=== PATIENT | female | born 1935 | race Caucasian/White ===

== ENCOUNTER → 2018-02-12 | Outpatient (CLI) | payer MEDICARE, OTHER ==
[2018-02-12 18:19] LABS: ALT 21 U/L (9-52); AST 22 U/L (14-36); Albumin 4.1 g/dL (3.5-5.0); Alkaline Phosphatase 73 U/L (38-126); Anion Gap 15 mmol/L; Blood Urea Nitrogen 10 mg/dL (7-17); Calcium 9.3 mg/dL (8.4-10.2); Carbon Dioxide 23 mmol/L (22-30); Chloride 105 mmol/L (98-107); Cholesterol 205 mg/dL (<200); Creatine Kinase 80 U/L (30-135); Glucose 100 mg/dL (74-99); HDL Cholesterol 63 mg/dL (40-60); LDL Cholesterol,Calculated 128 mg/dL (0-99); Potassium 4.3 mmol/L (3.5-5.1); Sodium 143 mmol/L (137-145); Total Bilirubin 0.4 mg/dL (0.2-1.3); Total Protein 7.3 g/dL (6.3-8.2); Triglycerides 70 mg/dL (<150)
== END | disposition home or self-care (01) ==
LOC: LABWHC1 17:06
PROVIDERS: ATTEND Internal Medicine
DX: E78.00 Pure hypercholesterolemia, unspecified (principal)
CPT/HCPCS: 36415; 80053; 80061; 82550

== ENCOUNTER 2019-04-09 13:26 | Inpatient (IN) | payer MEDICARE, OTHER ==
--- NOTE | 2019-04-09 13:56 | ED ---
General Adult HPI - General Chief complaint: Fall Stated complaint: hip injury Time Seen by Provider: 04/09/19 13:30 Source: patient, EMS, RN notes reviewed Mode of arrival: EMS Limitations: physical limitation - History of Present Illness Initial comments: 83-year-old female with a past medical history of hypertension, osteoarthritis, hiatal hernia presents to the emergency department for a chief complaint of left hip pain. Patient states that she was trying to get down from the closet when she dropped it on her left hip. States that at that point she went down to her knees because of the pain but did not fall. Did not hit her head or neck. No other injuries. Denies back pain.Patient has no other complaints at this time including shortness of breath, chest pain, abdominal pain, nausea or vomiting, headache, or visual changes. - Related Data Home Medications Medication Instructions Recorded Confirmed Ammonium Lactate Cream [Lac-Hydrin 1 applic TOPICAL BID 11/10/18 11/17/18 12% Cream] Aspirin EC [Ecotrin Low Dose] 81 mg PO DAILY 11/10/18 11/17/18 Atenolol [Tenormin] 50 mg PO BID 11/10/18 11/17/18 Cholecalciferol [Vitamin D3] 1,000 unit PO BID 11/10/18 11/17/18 Diclofenac Sodium [Voltaren-Xr] 100 mg PO DAILY 11/10/18 11/17/18 Donepezil [Aricept] 10 mg PO HS 11/10/18 11/17/18 Fluticasone Nasal [place] [Flonase 1 spray EA NOSTRIL DAILY 11/10/18 11/17/18 Nasal [place]] Gabapentin [Neurontin] 300 mg PO BID 11/10/18 11/17/18 Ibuprofen [Motrin] 400 mg PO Q6HR PRN 11/10/18 11/17/18 Latanoprost/Pf [Latanoprost 0.005% 1 drop BOTH EYES HS 11/10/18 11/17/18 Eye Drop] Lisinopril [Prinivil] 10 mg PO DAILY 11/10/18 11/17/18 Metoprolol Succinate (ER) [Toprol 50 mg PO DAILY 11/10/18 11/17/18 Xl] Multivitamin [Multivitamins Adult 1 applicate PO DAILY 11/10/18 11/17/18 Gummies] Nitroglycerin Sl Tabs [Nitrostat] 0.4 mg SUBLINGUAL Q5M PRN 11/10/18 11/17/18 Omeprazole [PriLOSEC] 20 mg PO AC-BID 11/10/18 11/17/18 Potassium Chloride ER [K-Dur 20] 1 applicate PO DAILY 11/10/18 11/17/18 Rosuvastatin Calcium [Crestor] 10 mg PO DAILY 11/10/18 11/17/18 Timolol Maleate [Timolol Maleate 1 applic BOTH EYES BID 11/10/18 11/17/18 0.5% Ophth Gel] Valsartan/Hydrochlorothiazide 100 mg PO DAILY 11/10/18 11/17/18 [Diovan Hct 160-25 mg Tablet] Allergies Allergy/AdvReac Type Severity Reaction Status Date / Time No Known Allergies Allergy Verified 04/09/19 13:36 Review of Systems ROS Statement: Those systems with pertinent positive or pertinent negative responses have been documented in the HPI. ROS Other: All systems not noted in ROS Statement are negative. Past Medical History Past Medical History: Eye Disorder, GERD/Reflux, Hypertension, Osteoarthritis (OA) Additional Past Medical History / Comment(s): cellulitis and glaucoma. Hiatal hernia History of Any Multi-Drug Resistant Organisms: None Reported Past Surgical History: Appendectomy, Tonsillectomy Past Anesthesia/Blood Transfusion Reactions: No Reported Reaction Past Psychological History: No Psychological Hx Reported Smoking Status: Never smoker Past Alcohol Use History: None Reported Past Drug Use History: None Reported - Past Family History Father Family Medical History: Unable to Obtain Mother Family Medical History: Unable to Obtain General Exam Limitations: physical limitation General appearance: alert, in no apparent distress Head exam: Present: atraumatic, normocephalic, normal inspection Eye exam: Present: normal appearance, PERRL, EOMI. Absent: scleral icterus, conjunctival injection, periorbital swelling ENT exam: Present: normal exam, mucous membranes moist Neck exam: Present: normal inspection, full ROM. Absent: tenderness, meningismus, lymphadenopathy, thyromegaly Respiratory exam: Present: normal lung sounds bilaterally. Absent: respiratory distress, wheezes, rales, rhonchi, stridor Cardiovascular Exam: Present: regular rate, normal rhythm, normal heart sounds. Absent: systolic murmur, diastolic murmur, rubs, gallop, clicks Extremities exam: Present: tenderness (Minimal tenderness noted to the proximal left femur), normal capillary refill (Neptali refill less than 2 seconds, DP pulse 2+ in the left lower extremity), other (There is some mild shortening of the left leg noted). Absent: full ROM, pedal edema, joint swelling, calf tenderness Course Vital Signs 04/09/19 04/09/19 04/09/19 13:36 13:59 14:33 Temperature 98 F Pulse Rate 90 Respiratory 18 Rate Blood Pressure 226/105 214/89 214/100 O2 Sat by Pulse 98 Oximetry 04/09/19 15:45 Temperature Pulse Rate 92 Respiratory 18 Rate Blood Pressure 186/76 O2 Sat by Pulse 95 Oximetry - Reevaluation(s) Reevaluation #1: 04/09/19 13:54 Patient was given IV fentanyl on the way to the emergency department, feeling much better. This was given within 1 hr Medical Decision Making - Medical Decision Making 83-year-old female with a past medical history of GERD, glaucoma, hypertension presents to the emergency department for a chief complaint of left hip pain after dropping a tote on her left leg. States it is painful to move. On exam patient does have some shortening of the left leg. Distal pulses 2+ in the left lower extremity. Capillary refill less than 2 seconds. X-ray does show a displaced left femoral neck fracture. Preop lab work was initiated him a currently pending. Chest x-ray did show a large hiatal hernia which is present from exam from 2016, appears stable. Discussed case with ROB Elliott who recommends admission to Dr. Merlos, nothing by mouth after midnight. Medicine will be consulted. - Lab Data Result diagrams: 04/09/19 14:44 04/09/19 14:44 Lab Results 04/09/19 04/09/19 04/09/19 Range/Units 14:44 14:44 14:44 WBC 16.4 H (3.8-10.6) k/uL RBC 5.12 (3.80-5.40) m/uL Hgb 14.0 (11.4-16.0) gm/dL Hct 43.2 (34.0-46.0) % MCV 84.5 (80.0-100.0) fL MCH 27.4 (25.0-35.0) pg MCHC 32.4 (31.0-37.0) g/dL RDW 14.2 (11.5-15.5) % Plt Count 307 (150-450) k/uL Neutrophils % 93 % Lymphocytes % 4 % Monocytes % 2 % Eosinophils % 0 % Basophils % 0 % Neutrophils # 15.3 H (1.3-7.7) k/uL Lymphocytes # 0.7 L (1.0-4.8) k/uL Monocytes # 0.4 (0-1.0) k/uL Eosinophils # 0.0 (0-0.7) k/uL Basophils # 0.0 (0-0.2) k/uL PT 10.2 (9.0-12.0) sec INR 0.9 (<1.2) APTT 22.3 (22.0-30.0) sec Sodium 140 (137-145) mmol/L Potassium 4.2 (3.5-5.1) mmol/L Chloride 107 (98-107) mmol/L Carbon Dioxide 24 (22-30) mmol/L Anion Gap 9 mmol/L BUN 15 (7-17) mg/dL Creatinine 0.68 (0.52-1.04) mg/dL Est GFR (CKD-EPI)AfAm >90 (>60 ml/min/1.73 sqM) Est GFR (CKD-EPI)NonAf 82 (>60 ml/min/1.73 sqM) Glucose 118 H (74-99) mg/dL Calcium 9.1 (8.4-10.2) mg/dL Total Bilirubin 0.5 (0.2-1.3) mg/dL AST 21 (14-36) U/L ALT 18 (9-52) U/L Alkaline Phosphatase 81 (38-126) U/L Total Protein 7.3 (6.3-8.2) g/dL Albumin 4.1 (3.5-5.0) g/dL Disposition Clinical Impression: Femoral neck fracture Disposition: ADMITTED IP TO THIS [facility] Condition: Good Is patient prescribed a controlled substance at d/c from ED?: No Referrals: Teto Solis MD [Primary Care Provider] - 1-2 days Time of Disposition: 16:22
--- NOTE | 2019-04-09 14:33 | XR ---
EXAMINATION TYPE: XR Hip LT and AP Pelvis DATE OF EXAM: 04/09/2019 COMPARISON: NONE HISTORY: Pain TECHNIQUE: A single AP view of the pelvis is obtained. Two views of the left hip are obtained. FINDINGS: There is displaced left femoral neck fracture. Arthropathy of the right hip. Vascular calc ifications noted. Diffuse osteopenia. Degenerative change lower lumbar spine. IMPRESSION: 1. Displaced left femoral neck fracture.
--- NOTE | 2019-04-09 14:36 | XR ---
EXAMINATION TYPE: XR chest 1V DATE OF EXAM: 04/09/2019 COMPARISON: 08/13/2016 HISTORY: Pain post fall. TECHNIQUE: Single frontal view of the chest is obtained. FINDINGS: Large area of significant consolidation overlying the left lung likely related to large he rnia and stable relative to 2016. Arthropathy of the shoulders with probable calcific tendinosis on t he left. No obvious pneumothorax. Atherosclerotic change aorta. There is reflection on the left lung apex. IMPRESSION: 1. Recommend repeat PA view for probable artifact at the left lung apex. Pneumothorax not excluded bu t unlikely and repeat PA view recommended for confirmation. 2. Stable appearance to the left chest mid and lower lung zones which appears to be related to a larg e hernia.
[2019-04-09] MEDS ORDERED: MORPHINE SULFATE 4 MG/ML SYRINGE IVP STA (14:49)
--- NOTE | 2019-04-09 14:58 | XR ---
EXAMINATION TYPE: XR femur LT DATE OF EXAM: 04/09/2019 CLINICAL HISTORY: Pain TECHNIQUE: Two views of the left femur are obtained. COMPARISON: None FINDINGS: There is a displaced left femoral neck fracture. Diffuse osteopenia noted. There is calcifi cation in the soft tissues adjacent to the left femur. IMPRESSION: 1. Displaced left femoral neck fracture.
[2019-04-09 15:03] LABS: Basophils % (A) 0 %; Eosinophils % (A) 0 %; HCT 43.2 % (34.0-46.0); Lymphocytes # (A) 0.7 k/uL (1.0-4.8); Lymphocytes % (A) 4 %; MCH 27.4 pg (25.0-35.0); MCHC 32.4 g/dL (31.0-37.0); MCV 84.5 fL (80.0-100.0); Mean Platelet Volume 7.1; Monocytes # (A) 0.4 k/uL (0-1.0); Monocytes % (A) 2 %; Neutrophils # (A) 15.3 k/uL (1.3-7.7); Neutrophils % (A) 93 %; Platelet Count 307 k/uL (150-450); RBC 5.12 m/uL (3.80-5.40); RDW 14.2 % (11.5-15.5); WBC 16.4 k/uL (3.8-10.6)
[2019-04-09 15:09] LABS: INR 0.9 (<1.2); Partial Thromboplastin Time 22.3 sec (22.0-30.0); Prothrombin Time 10.2 sec (9.0-12.0)
[2019-04-09 15:11] LABS: ALT 18 U/L (9-52); AST 21 U/L (14-36); African American GFR (CKD) >90 (>60 ml/min/1.73 sqM); Albumin 4.1 g/dL (3.5-5.0); Alkaline Phosphatase 81 U/L (38-126); Anion Gap 9 mmol/L; Blood Urea Nitrogen 15 mg/dL (7-17); Calcium 9.1 mg/dL (8.4-10.2); Carbon Dioxide 24 mmol/L (22-30); Chloride 107 mmol/L (98-107); Glucose 118 mg/dL (74-99); Potassium 4.2 mmol/L (3.5-5.1); Sodium 140 mmol/L (137-145); Total Bilirubin 0.5 mg/dL (0.2-1.3); Total Protein 7.3 g/dL (6.3-8.2)
--- NOTE | 2019-04-09 15:58 | XR ---
EXAMINATION TYPE: XR chest 1V DATE OF EXAM: 04/09/2019 COMPARISON: 04/09/2019 HISTORY: Pain TECHNIQUE: Single frontal view of the chest is obtained. FINDINGS: No sizable pneumothorax. Persistent consolidation in the left likely related to large anh ia. This could be confirmed with CT scan as clinically warranted. Right lung is clear. Atheroscleroti c change aorta. Heart size is stable. IMPRESSION: No pneumothorax. Large area consolidation appears to be present on the prior exam and mo st typical of a large hernia. Adjacent compressive atelectasis suspected.
[2019-04-09] MEDS ORDERED: NALOXONE 0.4 MG/ML 1 ML VIAL IV PRN (16:23)
[2019-04-09] MEDS ORDERED: SODIUM CHLORIDE 0.9% 1,000 ML IV SCH (16:30)
[2019-04-09] MEDS: MORPHINE SULFATE 4 MG/ML SYRINGE IV PRN ×2 (17:57→22:52)
[2019-04-09] MEDS: ENOXAPARIN 40 MG/0.4 ML SYRINGE SQ SCH (22:42)
[2019-04-09] MEDS: TIMOLOL 0.5% OPHTH DROPS 5 ML BTL BOTH EYES SCH (22:45)
[2019-04-09] MEDS: VALSARTAN 160 MG TAB PO SCH (22:45)
[2019-04-09] MEDS: DONEPEZIL 10 MG TAB PO SCH (22:45)
[2019-04-09] MEDS: METOPROLOL TARTRATE 50 MG TAB PO SCH (22:45)
[2019-04-09] MEDS: LACTATED RINGERS 1,000 ML IV SCH (22:56)
[2019-04-10] MEDS: MORPHINE SULFATE 4 MG/ML SYRINGE IV PRN ×3 (05:42→19:49)
[2019-04-10] MEDS: PANTOPRAZOLE 40 MG TABLET PO SCH (07:31)
[2019-04-10] MEDS: ENOXAPARIN 40 MG/0.4 ML SYRINGE SQ SCH (07:32)
[2019-04-10] MEDS: ETODOLAC 300 MG CAPSULE PO SCH ×3 (07:44→21:42)
--- NOTE | 2019-04-10 07:48 | CONS ---
CONSULTATION DATE OF CONSULTATION: 04/09/2019 REASON FOR CONSULTATION: Medical management requested by Dr. Merlos. CONSULTATION: This is a very pleasant 83-year-old patient who follows with Dr. Teto Solis who lives with a friend calvin Martino/is also her guardian. A crate fell on the patient's leg and patient fell down. The patient is not able to lift herself up. There was severe pain in the left hip. Patient did get an x-ray in the ER that shows a displaced left femoral neck fracture, is rather painful. The patient normally uses a cane to get about the house. At her baseline, there no chest pain or shortness of breath, unable to lie flat. REVIEW OF SYSTEMS: CONSTITUTIONAL: None. HEENT: Decreased hearing. RESPIRATORY: None. CARDIOVASCULAR: None. GASTROINTESTINAL: Heartburn. GENITOURINARY: Incontinent. MUSCULOSKELETAL: Arthritic pain in many joints and the left hip. DERMATOLOGICAL: None. HEMATOLOGIC: None. LYMPHATIC: None. PSYCHIATRY: Slightly forgetful. NEUROLOGICAL: None. PAST MEDICAL HISTORY: Past medical history of GERD, hypertension, osteoarthritis, hiatal hernia. PAST SURGICAL HISTORY: Appendectomy, tonsillectomy. SOCIAL HISTORY: Lives with Salena, who is also her guardian. Does not smoke or drink alcohol. Does use a cane. FAMILY HISTORY: Reviewed, noncontributory to presentation. HOME MEDICATIONS: 1. Aricept 10 mg q.h.s. 2. Diovan hydrochlorothiazide 160/25, 100 mg p.o. daily. 3. Timolol 0.5% one drop to both eyes b.i.d. 4. Potassium 20 mEq a day. 5. Prilosec 20 mg a day. 6. Toprol XL 50 mg a day. 7. Diclofenac sodium 100 mg p.o. daily. 8. Aspirin 81 mg p.o. daily. ALLERGIES: None. PHYSICAL EXAMINATION: On examination, temperature 98.7, pulse 85, respiratory 18, blood pressure 183/62, pulse ox 94% on room air. GENERAL APPEARANCE: Average build, lying in bed, tired appearing. EYES: Pupils equal. Conjunctivae normal. HENT: External appearance of nose and ears normal. Oral cavity normal. NECK: JVD not raised. Mass not palpable. RESPIRATORY: Effort normal. LUNGS: Diminished breath sounds. CARDIOVASCULAR: First and second sounds normal. No edema. ABDOMEN: Soft, nontender. Liver and spleen not palpable. LYMPHATIC: No lymph nodes palpable in the neck and axillae. PSYCHIATRY: Able to answer simple questions. NEUROLOGICAL: Pupils equal. No facial asymmetry. Power and sensation grossly intact. MUSCULOSKELETAL: Evidence of severe osteoarthritis especially in the hands, knees. Limited range of motion of the left hip. INVESTIGATIONS: White count 16.4, hemoglobin 14. Potassium 4.2. BUN and creatinine normal. EKG tracing personally reviewed by me shows left bundle branch block. Chest x-ray film personally reviewed by me shows left-sided questionable mass reading the report this may be typical for large hernia as reported by the radiologist . ASSESSMENT: 1. Left femur fracture secondary to dropping an object on her leg. 2. Primary osteoarthritis multiple joints. 3. Chronic gait dysfunction at the baseline, patient uses a cane. 4. Gastroesophageal reflux disease. 5. Essential hypertension. 6. Chronic hiatal hernia. 7. Chronic urinary incontinence. PLAN: From a cardiovascular risk assessment standpoint, the patient is an elderly lady with limited exercise tolerance, but has no active cardiopulmonary symptoms putting her at a moderate risk for surgery. Patient's chest x-ray left lung field appears to show what may be evidence of hiatal hernia. The patient has no active pulmonary symptoms. The patient should be able to proceed for surgery. The patient's aspirin will be held. Lovenox for DVT prophylaxis. Care was discussed with the patient. Questions were answered. Thank you Dr. Merlos. MMRAAD / YENN: [id number] /
--- NOTE | 2019-04-10 08:34 | P.HPOR ---
History of Present Illness H&P Date: 04/10/19 Chief Complaint: Left femoral neck fracture Patient is an 83-year-old female presented to [facility] yesterday after sustaining an injury to her left leg. Patient was apparently trying to get something out of her closet, fell on her and she fell on the left side. She was unable to weight-bear and had immediate pain in the left leg. Upon arrival to the hospital, imaging and lab tests were done. Images demonstrated a left femoral neck fracture. I was contacted by the emergency room staff, the case was discussed. I was able to review the images of my attending Dr. Merlos. Patient was admitted under our care with plan for surgical intervention, internal medicine was placed on consult. Patient was evaluated today at bedside, she is resting comfortably. She notes no discomfort unless she moves in the left leg. She has no other orthopedic c omplaints at this time. She denies any previous surgery involving the left lower extremity. She denies any headaches, lightheadedness, chest pain or shortness of breath at this time. Review of Systems Constitutional: Reports as per HPI Past Medical History Past Medical History: Eye Disorder, GERD/Reflux, Hypertension, Osteoarthritis (OA) Additional Past Medical History / Comment(s): cellulitis and glaucoma. Hiatal hernia History of Any Multi-Drug Resistant Organisms: None Reported Past Surgical History: Appendectomy, Tonsillectomy Past Anesthesia/Blood Transfusion Reactions: No Reported Reaction Past Psychological History: No Psychological Hx Reported Additional Psychological History / Comment(s): Lives under the care of her guardian. Retired. No experience. No animal exposures. No current tobacco use Smoking Status: Never smoker Past Alcohol Use History: None Reported Past Drug Use History: None Reported - Past Family History Father Family Medical History: Unable to Obtain Mother Family Medical History: Unable to Obtain Medications and Allergies Home Medications Medication Instructions Recorded Confirmed Type Aspirin EC [Ecotrin Low Dose] 81 mg PO DAILY 11/10/18 04/09/19 History Diclofenac Sodium [Voltaren-Xr] 100 mg PO DAILY 11/10/18 04/09/19 History Donepezil [Aricept] 10 mg PO HS 11/10/18 04/09/19 History Metoprolol Succinate (ER) [Toprol 50 mg PO DAILY 11/10/18 04/09/19 History Xl] Omeprazole [PriLOSEC] 20 mg PO DAILY 11/10/18 04/09/19 History Potassium Chloride ER [K-Dur 20] 20 meq PO DAILY 11/10/18 04/09/19 History Timolol Maleate [Timolol Maleate 1 drop BOTH EYES BID 11/10/18 04/09/19 History 0.5% Ophth Gel] Valsartan/Hydrochlorothiazide 100 mg PO DAILY 11/10/18 04/09/19 History [Diovan Hct 160-25 mg Tablet] Allergies Allergy/AdvReac Type Severity Reaction Status Date / Time No Known Allergies Allergy Verified 04/09/19 16:40 Physical Examination Left lower extremity: There is no obvious open lesions or sores present throughout the lower extremity Obvious shortening and external rotation of the hip compared to contralateral side Logroll maneuver reproduces significant discomfort in the left hip, she is unable to straight leg raise No effusion present around the knee, no tenderness with palpation Plantar flexion, dorsiflexion, EHL, FHL are intact Calf is soft, no tenderness with palpation. Dorsal pedis pulses 2+. Her sensory exam light touch throughout the extremity is intact Results - Labs Labs: Abnormal Lab Results - Last 24 Hours (Table) 04/09/19 04/09/19 Range/Units 14:44 14:44 WBC 16.4 H (3.8-10.6) k/uL Neutrophils # 15.3 H (1.3-7.7) k/uL Lymphocytes # 0.7 L (1.0-4.8) k/uL Glucose 118 H (74-99) mg/dL H & H 04/09/19 Range/Units 14:44 Hgb 14.0 (11.4-16.0) gm/dL Hct 43.2 (34.0-46.0) % Coagulation 04/09/19 Range/Units 14:44 INR 0.9 (<1.2) Result Diagrams: 04/09/19 14:44 04/09/19 14:44 - Diagnostic results Hip x-ray: report reviewed, image reviewed Assessment and Plan Plan: Imaging: Multiple x-rays of the left lower extremity were obtained. Images do demonstrate a displaced left subcapital femoral neck fracture. Assessment: 1. Displaced left subcapital femoral neck fracture 2. Fall from standing 3. Other medical comorbidities Plan: I was able to discuss the case, including with physical exam findings and imaging studies my attending Dr. Merlos. Like to proceed with surgery, more specifically a direct anterior left total hip arthroplasty. Patient was made nothing by mouth last night, plan is for surgery on 04/10/2019. I had a long discussion last night with the patient's guardian over the phone, discussing the risk and benefits. I also discussed the case with the patient today at bedside. She would like to proceed with surgery. Consent will be obtained GI and DVT prophylaxis, we'll begin subcu medication regular scheduled aspirin after surgery Pain control Medical management Further recommendations to follow Time with Patient: Less than 30
[2019-04-10] MEDS ORDERED: VALSARTAN 160 MG TAB PO SCH (09:00)
[2019-04-10] MEDS ORDERED: METOPROLOL SUCCINATE (ER) 50 MG TAB.ER.24H PO SCH (09:00)
[2019-04-10] MEDS: HYDROCHLOROTHIAZIDE 25 MG TAB PO SCH (09:17)
[2019-04-10] MEDS: VALSARTAN 160 MG TAB PO SCH (09:32)
--- NOTE | 2019-04-10 09:32 | P.CNPUL ---
History of Present Illness Consult date: 04/10/19 Requesting physician: Pravin Merlos Reason for consult: abnormal CXR/CT Chief complaint: Left hip pain following injury. History of present illness: This a very pleasant 83-year-old female patient who follows with Dr. Solis as her primary care physician. She has a history of hypertension, osteoarthritis, gastroesophageal reflux disease. She presented to the emergency room yesterday after sustaining a injury to her left hip. She was trying to reach something from up in a closet and dropped a heavy tote on her hip. She did go down to her knees but did not actually fall. No head injury. No other injuries other than the left. X-ray did reveal a displaced left femoral neck fracture. There is diffuse osteopenia as well. Chest x-ray showed a large area of significance consolidation overlying the left lung likely secondary to large hernia and stable compared to previous in 2016. Initially unable to exclude a pneumothorax in the left apex. We're consulted for the same regarding preop clearance. Follow-up chest x-ray revealed no pneumothorax. The patient has no underlying pulmonary disease. Lifelong nonsmoker. Maintaining good O2 saturations in the mid 90s on room air. She's afebrile. White count 16.4. Hemoglobin 14.0. Creatinine 0.68. The plan is for a direct anterior left total hip arthroplasty per orthopedics to be performed today. Review of Systems REVIEW OF SYSTEMS: CONSTITUTIONAL: Denies any recent significant weight loss or weight gain. EYES: Denies change in vision. EARS, NOSE, MOUTH, THROAT: Denies headaches, denies sore throat. CARDIOVASCULAR: Denies chest pain, palpitations or syncopal episodes. RESPIRATORY: Denies shortness of breath, cough, congestion or hemoptysis. GASTROINTESTINAL: Denies change in appetite, denies abdominal pain GENITOURINARY: Denies hematuria, denies infections. MUSKULOSKELETAL: Left hip pain. INTEGUMENTARY: Denies rash, denies eczema. NEUROLOGICAL: Denies recent memory loss, no recent seizure activity. PSYCHIATRIC: Denies anxiety, denies depression. HEMATOLOGIC/LYMPHATIC: Denies anemia, denies enlarged lymph nodes. Past Medical History Past Medical History: Eye Disorder, GERD/Reflux, Hypertension, Osteoarthritis (OA) Additional Past Medical History / Comment(s): cellulitis and glaucoma. Hiatal hernia History of Any Multi-Drug Resistant Organisms: None Reported Past Surgical History: Appendectomy, Tonsillectomy Past Anesthesia/Blood Transfusion Reactions: No Reported Reaction Past Psychological History: No Psychological Hx Reported Additional Psychological History / Comment(s): Lives under the care of her guardian. Retired. No experience. No animal exposures. No current tobacco use Smoking Status: Never smoker Past Alcohol Use History: None Reported Past Drug Use History: None Reported - Past Family History Father Family Medical History: Unable to Obtain Mother Family Medical History: Unable to Obtain Medications and Allergies Home Medications Medication Instructions Recorded Confirmed Type Aspirin EC [Ecotrin Low Dose] 81 mg PO DAILY 11/10/18 04/09/19 History Diclofenac Sodium [Voltaren-Xr] 100 mg PO DAILY 11/10/18 04/09/19 History Donepezil [Aricept] 10 mg PO HS 11/10/18 04/09/19 History Metoprolol Succinate (ER) [Toprol 50 mg PO DAILY 11/10/18 04/09/19 History Xl] Omeprazole [PriLOSEC] 20 mg PO DAILY 11/10/18 04/09/19 History Potassium Chloride ER [K-Dur 20] 20 meq PO DAILY 11/10/18 04/09/19 History Timolol Maleate [Timolol Maleate 1 drop BOTH EYES BID 11/10/18 04/09/19 History 0.5% Ophth Gel] Valsartan/Hydrochlorothiazide 100 mg PO DAILY 11/10/18 04/09/19 History [Diovan Hct 160-25 mg Tablet] Allergies Allergy/AdvReac Type Severity Reaction Status Date / Time No Known Allergies Allergy Verified 04/09/19 16:40 Physical Exam Vitals: Vital Signs Temp Pulse Pulse Pulse Resp BP BP 04/10/19 07:00 98.6 F 78 16 04/10/19 02:31 97.8 F 69 16 173/69 04/09/19 23:56 69 154/70 04/09/19 19:41 98.7 F 85 18 183/62 04/09/19 15:45 92 18 186/76 04/09/19 14:33 214/100 04/09/19 13:59 214/89 04/09/19 13:36 98 F 90 18 226/105 BP Pulse Ox 04/10/19 07:00 184/75 92 L 04/10/19 02:31 95 06/06/19 23:56 04/09/19 19:41 94 L 04/09/19 15:45 95 04/09/19 14:33 04/09/19 13:59 04/09/19 13:36 98 Intake and Output 04/09/19 04/10/19 04/10/19 22:59 06:59 14:59 Intake Total 700 Output Total 550 Balance -550 700 Intake: Intake, IV Titration 700 Amount Lactated Ringers 1,000 ml 400 @ 50 mls/hr IV .Q20H RED Rx#:[id number] Sodium Chloride 0.9% 1, 300 000 ml @ 75 mls/hr IV . [id number] RED Rx#:[id number] Output: Urine 550 Other: Voiding Method Indwelling Catheter Indwelling Catheter GENERAL EXAM: Alert, fairly comfortable in no apparent distress. On room air. HEAD: Normocephalic. EYES: Normal reaction of pupils, equal size. NOSE: Clear with pink turbinates. THROAT: No erythema or exudates. NECK: No masses, no JVD. CHEST: No chest wall deformity. LUNGS: Equal air entry with no crackles, wheeze, rhonchi or dullness. CVS: S1 and S2 normal with no audible murmur, regular rhythm. ABDOMEN: No hepatosplenomegaly, normal bowel sounds, no guarding or rigidity. SPINE: No scoliosis or deformity SKIN: No rashes CENTRAL NERVOUS SYSTEM: No focal deficits, tone is normal in all 4 extremities. EXTREMITIES: Discomfort in the left hip. There is no peripheral edema. No clubbing, no cyanosis. Peripheral pulses are intact. Results - Laboratory Findings CBC and BMP: 04/09/19 14:44 04/09/19 14:44 PT/INR, D-dimer PT 10.2 sec (9.0-12.0) 04/09/19 14:44 INR 0.9 (<1.2) 04/09/19 14:44 Abnormal lab findings: Abnormal Labs 04/09/19 04/09/19 14:44 14:44 WBC 16.4 H Neutrophils # 15.3 H Lymphocytes # 0.7 L Glucose 118 H - Diagnostic Findings Chest x-ray: image reviewed Assessment and Plan Assessment: Impression: #1 Left hip pain secondary to injury causing a displaced left subcapital femoral neck fracture. #2 Large hiatal hernia into the left chest area. No evidence of pneumothorax. #3 Osteoarthritis. #4 Hypertension. #5 Hyperlipidemia. #6 Gastroesophageal reflux disease Plan: The patient was seen and evaluated by Dr. Larose. Chest x-rays labs reviewed. The patient is stable from the pulmonary standpoint. No pulmonary complaints. Maintaining good O2 saturations in the 90s on room air. She is cleared for surgical repair of the left hip fracture. Plan for incentive spirometer and educate regarding cough and deep breathing exercises postoperatively. We'll continue to follow make further recommendations based on her clinical status. I, the cosigning physician, performed a history & physical examination of the patient. Lungs sounds are clear. Maintaining good O2 saturations in the 90s on room air. I discussed the assessment and plan of care with my nurse practitioner, Mary Cade. I attest to the above note as dictated by her. Time with Patient: Greater than 30
[2019-04-10] MEDS: METOPROLOL TARTRATE 50 MG TAB PO SCH ×2 (10:13→19:50)
[2019-04-10] MEDS: TIMOLOL 0.5% OPHTH DROPS 5 ML BTL BOTH EYES SCH ×2 (10:13→19:50)
[2019-04-10] MEDS ORDERED: IV FLUID CONTINUATION 250 ML IV ONE (15:07)
[2019-04-10] MEDS ORDERED: ceFAZolin IN SWFI 2 GM/20 ML SYRINGE IVP STA (15:09)
[2019-04-10] MEDS: LACTATED RINGERS 1,000 ML IV SCH ×2 (15:15→15:44)
[2019-04-10] MEDS ORDERED: LIDOCAINE 1% 20 ML VIAL (10MG/ML) FOR IV START INTRADERMA ONE (15:15)
[2019-04-10] MEDS ORDERED: hydrALAZINE HCL 20 MG/ML 1 ML VIAL IVP ONE (15:20)
[2019-04-10] MEDS ORDERED: TRANEXAMIC ACID 1,000 MG/10 ML VIAL ONE (15:39)
[2019-04-10] MEDS ORDERED: MIDAZOLAM 2 MG/2 ML VIAL ONE (15:39)
[2019-04-10] MEDS ORDERED: SODIUM CHLORIDE 0.9% 100 ML BAG ONE (15:39)
[2019-04-10] MEDS ORDERED: PROPOFOL 10 MG/ML 20 ML VIAL IV ONE (15:39)
[2019-04-10] MEDS ORDERED: ceFAZolin 3,000 MG in SODIUM CHLORIDE 0.9% IRRIGATIO 3,000 ML IRRIGATION ONE (16:27)
[2019-04-10] MEDS ORDERED: TRANEXAMIC ACID 1,000 MG in SODIUM CHLORIDE 0.9% 100 ML IVPB ONE ×4 (16:30)
[2019-04-10] MEDS ORDERED: ONDANSETRON 4 MG/2 ML VIAL IVP PRN (18:03)
[2019-04-10] MEDS ORDERED: NALOXONE 0.4 MG/ML 1 ML VIAL IV PRN (18:03)
[2019-04-10] MEDS ORDERED: HYDROmorphone 0.5 MG/0.5 ML SYRINGE IVP PRN ×3 (18:03)
--- NOTE | 2019-04-10 18:03 | P.OP ---
Date of Procedure: 04/10/19 Preoperative Diagnosis: Displaced left hip femoral neck fracture Postoperative Diagnosis: Same Procedure(s) Performed: Direct anterior left total hip arthroplasty Implants: 1. Depuy Corail KA size 11 with collar press-fit femoral stem 2. Depuy Pomaria 52 mm press-fit acetabular shell 3. Depuy Pomaria polyethylene acetabular liner +4 52 OD 36 ID 4. Biolox delta ceramic femoral head +1.5 to 6 Anesthesia: spinal Surgeon: Pravin Merlos Chief Construction Inspector #1: Zenon Maldonado Estimated Blood Loss (ml): 500 Pathology: other (Femoral head) Condition: stable Disposition: PACU Indications for Procedure: 83-year-old patient seen with a displaced left hip femoral neck fracture. I discussed direct anterior left total hip arthroplasty. Procedure, risks, combination and recovery were reviewed. Patient and family were agreeable. Consent obtained. Operative Findings: see description of procedure Description of Procedure: The patient was taken to the operative suite. Patient underwent a spinal anesthetic by the department of anesthesia. Patient was then transferred to the [place] table. Patient was given preoperative IV antibiotics and TXA. Both lower extremities were placed in standard leg spars. The hip was then prepped and draped in the normal sterile orthopedic fashion. A standard anterior incision was made beginning 3 cm lateral and 1 cm distal to the ASIS extending 10 cm. Dissection was then carried down through the subcutaneous soft tissues down to the fascia overlying the tensor fascia montez. An incision was now made through the fascia. Careful dissection was taken down exposing the tensor fascia montez muscle. A Cobra retractor was now placed along the medial femoral neck and a second one along the lateral femoral neck. The venous circumflex vessels were now identified, cauterized and clipped. We identified the anterior hip capsule. An incision was made through the hip capsule along the lateral border. I performed a partial anterior capsulectomy. I immediately encountered the hemarthrosis. This was evacuated. There was a displaced comminuted femoral neck fracture. Retractors were now placed around the femoral neck itself. I re sected the residual femoral neck utilizing a sagittal saw. The femoral head was now removed without difficulty. There was moderate osteoarthritis of the acetabulum. The extremity was now rotated to 45 of external rotation. It was locked in position. Residual labrum was now debrided out. Serial reaming was performed of the acetabulum while Tone RIVAS assisted holding an anterior retractor for exposure. Once we reached the appropriate size and a trial was position and fit nicely. The appropriate size was now chosen opened and made available. It was introduced into the acetabulum without difficulty. The C- arm/fluoroscopy was now brought into the operative field. We made sure we had a true AP pelvic view. We now under direct C-arm/fluoroscopy introduced into the acetabular component with appropriate version and inclination. I held the cup in appropriate position well Tone RIVAS used a mallet to seat the acetabular component. The acetabular component would not seat. I tried to insert a screw but it was very soft bone. I now swapped out the acetabular cup for multi hole cup. I drilled multiple holes and up using multiple screws to achieve good screw fixation of the acetabular cup. The C-arm was pulled back. An appropriate liner was introduced and clicked into position. It was felt to be stable. At this point retractors were removed. The extremity was now placed into 120 external rotation with no traction. The leg was now dropped to the ground and adducted. Appropriate retractors were now positioned along the proximal femur. We also placed our femoral look into position. Additional capsular releasing was performed to gain access to the proximal femur. We now used a box osteotome. A canal finder was now utilized. Serial broaching was now performed with the assistance of oTne RIVAS tapping the broaches down with a mallet while held the broach in appropriate rotation and position. This was done until we reached the appropriate size with good overall rotational stability. Appropriate calcar planing was performed. A trial head/neck was placed into position. The hip was now reduced. The C-arm/fluoroscopy was brought back into the operative field. A spot film was obtained of the nonoperative hip. A spot film was obtained of the trial components. Overlays were performed, we noted good overall alignment and positioning for determining leg length. The C-arm/fluoroscopy was pulled back. Retractors were repositioned and the hip was dislocated. The leg was again taken down to the ground and adducted. Appropriate retractors were repositioned as well as the femoral hook. All trial components were removed. The femoral implant was opened along with the femoral head. The femoral implant was introduced on the appropriate handle into our pre-broached area. I held the component position well Tone RIVAS used a mallet to seat the femoral component. The femoral component was now noted to be well seated and stable.. The femoral head was introduced with good positioning and fixation noted. Retractors were now removed. The hip was now reduced. There appeared be good positioning of the hip confirmed on intraoperative fluoroscopy. Spot films were obtained to document this. A second gram of TXA was given. The deep and superficial soft tissues were infiltrated with local analgesic. Bipolar cautery had been utilized intermittently through the procedure for hemostasis. The wound was irrigated copiously with pulse lavage mechanical irrigation. The fascia was repaired with Vicryl suture. The subcutaneous soft tissues were repaired in layers with Vicryl suture. The skin was approximated with pernio/Dermabond. Sterile dressings were applied. Patient was then awakened, transferred to a bed and taken to recovery in stable condition. Tone RIVAS assisted with the complex procedure.
[2019-04-10] MEDS: SENNOSIDES-DOCUSATE SODIUM 1 EACH TAB PO SCH (19:49)
[2019-04-10] MEDS: DONEPEZIL 10 MG TAB PO SCH (19:50)
[2019-04-10] MEDS: SODIUM CHLORIDE 0.9% 1,000 ML IV SCH (19:50)
[2019-04-10] MEDS: HYDROcodone/APAP 5-325MG 1 EACH TAB PO PRN (21:40)
[2019-04-10] MEDS: ceFAZolin IN SWFI 2 GM/20 ML SYRINGE IVP SCH (23:30)
[2019-04-11] MEDS: HYDROcodone/APAP 5-325MG 1 EACH TAB PO PRN (05:56)
[2019-04-11 07:32] LABS: Basophils % (A) 0 %; Eosinophils # (A) 0.1 k/uL (0-0.7); Eosinophils % (A) 1 %; HCT 36.2 % (34.0-46.0); HGB 11.7 gm/dL (11.4-16.0); Lymphocytes # (A) 0.9 k/uL (1.0-4.8); Lymphocytes % (A) 11 %; MCH 27.4 pg (25.0-35.0); MCHC 32.3 g/dL (31.0-37.0); MCV 84.8 fL (80.0-100.0); Mean Platelet Volume 7.1; Monocytes # (A) 0.3 k/uL (0-1.0); Monocytes % (A) 4 %; Neutrophils # (A) 7.1 k/uL (1.3-7.7); Neutrophils % (A) 83 %; Platelet Count 245 k/uL (150-450); RBC 4.27 m/uL (3.80-5.40); RDW 14.7 % (11.5-15.5); WBC 8.6 k/uL (3.8-10.6)
[2019-04-11] MEDS ORDERED: ENOXAPARIN 40 MG/0.4 ML SYRINGE SQ SCH (09:00)
[2019-04-11] MEDS: TIMOLOL 0.5% OPHTH DROPS 5 ML BTL BOTH EYES SCH ×2 (09:00→21:46)
[2019-04-11] MEDS: ceFAZolin IN SWFI 2 GM/20 ML SYRINGE IVP SCH (09:07)
--- NOTE | 2019-04-11 10:55 | PN ---
PROGRESS NOTE DATE OF SERVICE: 04/10/2019 PRESENT COMPLAINT: Femur fracture. INTERVAL HISTORY: Patient is seen by me yesterday on 04/10/2019, pending surgery. Patient is status post left femur fracture. Pain at the fracture site, otherwise stable. REVIEW OF SYSTEMS: Done for constitutional, cardiovascular, GI, pulmonary; relevant findings as above. CURRENT MEDICATIONS: Reviewed. PHYSICAL EXAMINATION: Temperature 98.6, pulse 72, respiration 16, blood pressure 184/75, pulse ox 92% on room air. GENERAL APPEARANCE: Lying in bed, awake. EYES: Pupils equal, conjunctivae normal. NECK: JVD not raised. Mass not palpable. RESPIRATORY: Effort normal. LUNGS: Decreased breath sounds. CARDIOVASCULAR: First and second sounds are normal, no edema. ABDOMEN: Soft, nontender. Liver and spleen not palpable. PSYCHIATRY: Awake, answering questions. INVESTIGATIONS: No blood work from today. ASSESSMENT: 1. Left femur fracture secondary to dropping objects on the leg. Awaiting surgery. 2. Primary osteoarthritis multiple joints. 3. Chronic gait dysfunction, at the baseline patient uses a cane. 4. Gastroesophageal reflux disease. 5. Essential hypertension. 6. Chronic hiatal hernia. 7. Chronic urine incontinence. PLAN: Awaiting surgery. Spoke to the nurse, told him to make sure the morning blood pressure medications were given. Other medication and treatment plan is to continue. MMODL / IJN: [id number] /
--- NOTE | 2019-04-11 11:50 | P.PN ---
Subjective Progress Note Date: 04/11/19 Principal diagnosis: Status post direct anterior left total hip arthroplasty Patient evaluated today at bedside, she is resting comfortably. She had a couple vomiting episodes this morning, this happened when she attempted to get out of bed. She remained stable while resting in bed. Her pain is controlled at this time, she states the pain is much improved. Objective - Vital Signs Vital signs: Vital Signs Temp 97.7 F 04/11/19 07:41 Pulse 59 L 04/11/19 07:41 Resp 19 04/11/19 07:41 BP 136/54 04/11/19 07:41 Pulse Ox 96 04/11/19 07:41 Intake & Output 04/10/19 04/11/19 04/11/19 18:59 06:59 18:59 Intake Total 1351 400 Output Total 1000 550 Balance 351 -150 Intake: IV 1351 Lactated Ringers 1,000 ml 400 @ 50 mls/hr IV .Q20H RED Rx#:[id number] Intake, IV Titration 400 Amount Sodium Chloride 0.9% 1, 400 000 ml @ 50 mls/hr IV . Q20H RED Rx#:[id number] Output: Urine 500 550 Estimated Blood Loss 500 Other: Voiding Method Indwelling Catheter Indwelling Catheter Indwelling Catheter - Exam Left lower extremity: Incision is clean, dry, and intact. The exofin fusion tape is in good condition. There is minimal soft tissue swelling and ecchymosis surrounding the medial and lateral aspects of the incision. Calf is soft, no tenderness with pa lpation. Plantar flexion, dorsiflexion, EHL, FHL are intact. Sensory exam to light touch throughout the extremity is intact, dorsal pedis pulses 2+. - Labs CBC & Chem 7: 04/11/19 06:46 04/09/19 14:44 Labs: Abnormal Lab Results - Last 24 Hours (Table) 04/11/19 Range/Units 06:46 Lymphocytes # 0.9 L (1.0-4.8) k/uL Assessment and Plan Plan: Assessment: Postoperative day 1 status post left total hip arthroplasty Plan: Pain control, did restart home anti-inflammatory medication. Utilize low-dose narcotics as needed, this may be contributed to the vomiting episode. GI and DVT prophylaxis, continue current medication Ice and elevate often Continue work with physical therapy Medical recommendations We'll continue to follow patient during inpatient stay Time with Patient: Less than 30
[2019-04-11] MEDS ORDERED: ONDANSETRON 4 MG/2 ML VIAL IVP PRN (13:52)
[2019-04-11] MEDS: ETODOLAC 300 MG CAPSULE PO SCH ×3 (13:53→21:46)
[2019-04-11] MEDS: HYDROCHLOROTHIAZIDE 25 MG TAB PO SCH (13:54)
[2019-04-11] MEDS: VALSARTAN 160 MG TAB PO SCH (13:54)
[2019-04-11] MEDS: PANTOPRAZOLE 40 MG TABLET PO SCH (13:54)
[2019-04-11] MEDS: METOPROLOL TARTRATE 50 MG TAB PO SCH ×2 (13:54→21:46)
[2019-04-11] MEDS: ENOXAPARIN 40 MG/0.4 ML SYRINGE SQ SCH (14:35)
[2019-04-11] MEDS: SODIUM CHLORIDE 0.9% 1,000 ML IV SCH (14:35)
[2019-04-11] MEDS: LACTATED RINGERS 1,000 ML IV SCH (14:39)
[2019-04-11] MEDS: ACETAMINOPHEN TAB 500 MG TAB PO PRN (17:36)
[2019-04-11] MEDS: DONEPEZIL 10 MG TAB PO SCH (21:46)
[2019-04-11] MEDS: SENNOSIDES-DOCUSATE SODIUM 1 EACH TAB PO SCH (21:46)
[2019-04-12] MEDS: ETODOLAC 300 MG CAPSULE PO SCH ×3 (07:33→21:00)
[2019-04-12] MEDS: TIMOLOL 0.5% OPHTH DROPS 5 ML BTL BOTH EYES SCH ×2 (07:33→21:01)
[2019-04-12] MEDS: VALSARTAN 160 MG TAB PO SCH (07:34)
[2019-04-12] MEDS: METOPROLOL TARTRATE 50 MG TAB PO SCH ×2 (07:34→21:00)
[2019-04-12] MEDS: HYDROCHLOROTHIAZIDE 25 MG TAB PO SCH (07:34)
[2019-04-12] MEDS: ENOXAPARIN 40 MG/0.4 ML SYRINGE SQ SCH (07:34)
[2019-04-12] MEDS: PANTOPRAZOLE 40 MG TABLET PO SCH (07:34)
[2019-04-12] MEDS: ACETAMINOPHEN TAB 500 MG TAB PO PRN ×2 (07:34→14:19)
[2019-04-12] MEDS: SODIUM CHLORIDE 0.9% 1,000 ML IV SCH (09:25)
[2019-04-12] MEDS: LACTATED RINGERS 1,000 ML IV SCH (09:25)
[2019-04-12 10:14] LABS: Basophils % (A) 0 %; Eosinophils # (A) 0.1 k/uL (0-0.7); Eosinophils % (A) 2 %; HCT 33.3 % (34.0-46.0); Lymphocytes # (A) 1.1 k/uL (1.0-4.8); Lymphocytes % (A) 14 %; MCH 27.8 pg (25.0-35.0); MCHC 32.9 g/dL (31.0-37.0); MCV 84.4 fL (80.0-100.0); Mean Platelet Volume 7.7; Monocytes # (A) 0.3 k/uL (0-1.0); Monocytes % (A) 3 %; Neutrophils # (A) 6.3 k/uL (1.3-7.7); Neutrophils % (A) 80 %; Platelet Count 260 k/uL (150-450); RBC 3.95 m/uL (3.80-5.40); RDW 14.6 % (11.5-15.5); WBC 7.9 k/uL (3.8-10.6)
--- NOTE | 2019-04-12 10:32 | P.PN ---
Subjective Progress Note Date: 04/12/19 Principal diagnosis: Status post direct anterior left total hip arthroplasty Patient evaluated today at bedside, she is resting comfortably. Nausea is improved since yesterday, she has held off on oral narcotics this time. Utilizing Tylenol and anti-inflammatories. Her pain is controlled at this time, she states the pain is much improved. Objective - Vital Signs Vital signs: Vital Signs Temp 98.5 F 04/12/19 07:27 Pulse 76 04/12/19 07:27 Resp 16 04/12/19 07:27 BP 176/75 04/12/19 07:27 Pulse Ox 94 L 04/12/19 07:27 Intake & Output 04/11/19 04/12/19 04/12/19 18:59 06:59 18:59 Intake Total 620 800 240 Output Total 1150 0 Balance 620 -350 240 Intake: Intake, IV Titration 500 800 Amount Sodium Chloride 0.9% 1, 500 800 000 ml @ 50 mls/hr IV . Q20H RED Rx#:[id number] Oral 120 240 Output: Urine 1150 Emesis 0 0 Other: Voiding Method Indwelling Catheter Indwelling Catheter Indwelling Catheter # Bowel Movements 0 0 - Exam Left lower extremity: Incision is clean, dry, and intact. The exofin fusion tape is in good condition. There is minimal soft tissue swelling and ecchymosis surrounding the medial and lateral aspects of the incision. Calf is soft, no tenderness with palpation. Plantar flexion, dorsiflexion, EHL, FHL are intact. Sensory exam to light touch throughout the extremity is intact, dorsal pedis pulses 2+. - Labs CBC & Chem 7: 04/12/19 09:29 04/09/19 14:44 Labs: Abnormal Lab Results - Last 24 Hours (Table) 04/12/19 Range/Units 09:29 Hgb 11.0 L (11.4-16.0) gm/dL Hct 33.3 L (34.0-46.0) % Assessment and Plan Plan: Assessment: Postoperative day #2 status post left total hip arthroplasty Plan: Pain control, continue current medication GI and DVT prophylaxis, continue current medication Ice and elevate often Continue work with physical therapy Medical recommendations Hopeful discharge to rehab tomorrow Time with Patient: Less than 30
--- NOTE | 2019-04-12 12:12 | FL ---
EXAMINATION TYPE: FL guidance operating room, XR Hip Limited LT DATE OF EXAM: 04/10/2019 CLINICAL HISTORY: Fluoroscopic documentation during open reduction internal fixation of the left hip TECHNIQUE: Fluoroscopy. COMPARISON: None. FINDINGS: Fluoroscopic guidance was provided during procedure performed by Dr. Dupree. A total o f 1 minute and 1 seconds of fluoroscopic time was utilized during the procedure and 1 spot images was acquired. IMPRESSION: As Above.
[2019-04-12] MEDS: HYDROcodone/APAP 5-325MG 1 EACH TAB PO PRN (16:26)
[2019-04-12] MEDS: DONEPEZIL 10 MG TAB PO SCH (21:00)
[2019-04-12] MEDS: SENNOSIDES-DOCUSATE SODIUM 1 EACH TAB PO SCH (21:00)
[2019-04-13] MEDS: LACTATED RINGERS 1,000 ML IV SCH (05:07)
[2019-04-13] MEDS: SODIUM CHLORIDE 0.9% 1,000 ML IV SCH (06:27)
--- NOTE | 2019-04-13 06:37 | PN ---
PROGRESS NOTE DATE OF SERVICE: 04/11/2019 PRESENTING COMPLAINT: Femur surgery. INTERVAL HISTORY: This patient was seen by me on 04/11/2019. Doing well. Pain is controlled. Tolerating a diet. No new issues. REVIEW OF SYSTEMS: Done for constitutional, cardiovascular, GI, pulmonary; relevant findings as above. CURRENT MEDICATIONS: Current medications are reviewed include Lovenox for DVT prophylaxis. PHYSICAL EXAMINATION: On examination, temperature 97.9, pulse 73, respiration 16, blood pressure 114/43, pulse ox 92% on room air. GENERAL APPEARANCE: Lying in bed, awake. EYES: Pupils equal. Conjunctivae normal. NECK: JVD not raised. Mass not palpable. RESPIRATORY: Effort normal. LUNGS: Slightly decreased breath sounds. CARDIOVASCULAR: First and second sounds normal. No edema. ABDOMEN: Soft, nontender. Liver and spleen not palpable. PSYCHIATRY: Alert and oriented x3. Mood and affect normal. INVESTIGATIONS: White count 8.6, hemoglobin 11.7. ASSESSMENT: 1. Left femur fracture, secondary to dropping objects on the leg, status post surgery. 2. Primary osteoarthritis multiple joints. 3. Chronic gait dysfunction, at baseline uses a cane. 4. Gastroesophageal reflux disease. 5. Essential hypertension. 6. Chronic hiatal hernia. 7. Chronic urinary incontinence. PLAN: The patient is doing well. The patient is status post left hip hemiarthroplasty. Continue current medication and treatment plan. MMODL / IJN: [id number] /
--- NOTE | 2019-04-13 06:43 | PN ---
PROGRESS NOTE DATE OF SERVICE: 04/12/2019 PRESENTING COMPLAINT: Femur fracture. INTERVAL HISTORY: Patient is status post femur fracture followed by arthroplasty. Some pain is present. Tolerating a diet. No nausea or vomiting. Breathing is stable. REVIEW OF SYSTEMS: Done for constitutional, cardiovascular, GI, pulmonary, musculoskeletal; relevant findings as above. CURRENT MEDICATIONS: Current medications are reviewed. PHYSICAL EXAMINATION: On examination, temperature 98.1, pulse 63, respiration 16, blood pressure 124/67, pulse ox 95% on room air. GENERAL APPEARANCE: Sitting on bed, having breakfast. EYES: Pupils equal. Conjunctivae normal. NECK: JVD not raised. Mass not palpable. RESPIRATORY: Effort normal. LUNGS: Are clear. CARDIOVASCULAR: First and second sounds normal. No edema. ABDOMEN: Soft, nontender. Liver and spleen not palpable. PSYCHIATRY: Alert and oriented x3. Mood and affect normal. INVESTIGATIONS: White count 7.9, hemoglobin 11. ASSESSMENT: 1. Left femur fracture followed by hemiarthroplasty. 2. Primary osteoarthritis multiple joints. 3. Chronic gait dysfunction, at the baseline uses a cane. 4. Gastroesophageal reflux disease. 5. Essential hypertension. 6. Chronic hiatal hernia. 7. Chronic urinary incontinence. 8. Acute postoperative blood loss anemia expected from surgery. PLAN: Patient to continue current medication and treatment plan. Medically stable. Pending to go to the [facility]. MMODL / IJN: [id number] /
--- NOTE | 2019-04-13 06:46 | PN ---
PROGRESS NOTE DATE OF SERVICE: 04/12/2019 PRESENTING COMPLAINT: Femur fracture. INTERVAL HISTORY: The patient was seen by me on 04/12/2019. Status post femur fracture arthroplasty. Doing well, tolerating a diet, comfortable. REVIEW OF SYSTEMS: Done for constitutional, cardiovascular, GI, pulmonary, musculoskeletal; relevant findings as above. MEDICATIONS: Current medications are reviewed. PHYSICAL EXAMINATION: On examination, temperature 98.1, pulse 63, respirations 16, blood pressure 124/67, pulse ox 95% on room air. GENERAL APPEARANCE: Lying in bed, comfortable. EYES: Pupils equal. Conjunctivae normal. NECK: JVD not raised. Mass not palpable. RESPIRATORY: Effort normal. LUNGS: Decreased breath sounds. CARDIOVASCULAR: First and second sounds normal. No edema. ABDOMEN: Soft, nontender. Liver and spleen not palpable. PSYCHIATRY: Alert and oriented x3. Mood and affect normal. INVESTIGATIONS: White count . ASSESSMENT: 1. Left femur fracture by dropping object followed by hemiarthroplasty. 2. Primary osteoarthritis multiple joints. 3. Chronic gait dysfunction, uses a cane at baseline. 4. Gastroesophageal reflux disease. 5. Essential hypertension. 6. Chronic hiatal hernia. 7. Chronic urinary incontinence. 8. Acute postoperative blood loss anemia expected from surgery. PLAN: Continue medication and treatment plan. Patient is stable to go to rehab. MMRAAD / YENN: [id number] /
[2019-04-13] MEDS: HYDROCHLOROTHIAZIDE 25 MG TAB PO SCH (07:25)
[2019-04-13] MEDS: ENOXAPARIN 40 MG/0.4 ML SYRINGE SQ SCH (07:25)
[2019-04-13] MEDS: PANTOPRAZOLE 40 MG TABLET PO SCH (07:25)
[2019-04-13] MEDS: VALSARTAN 160 MG TAB PO SCH (07:25)
[2019-04-13] MEDS: ETODOLAC 300 MG CAPSULE PO SCH ×3 (07:25→20:26)
[2019-04-13] MEDS: FERROUS SULFATE 325 MG TAB PO SCH ×2 (07:25→16:31)
[2019-04-13] MEDS: METOPROLOL TARTRATE 50 MG TAB PO SCH ×2 (07:25→20:26)
[2019-04-13] MEDS: TIMOLOL 0.5% OPHTH DROPS 5 ML BTL BOTH EYES SCH ×2 (07:26→20:26)
[2019-04-13 08:07] LABS: Basophils % (A) 0 %; Eosinophils # (A) 0.2 k/uL (0-0.7); Eosinophils % (A) 3 %; HCT 34.8 % (34.0-46.0); HGB 11.3 gm/dL (11.4-16.0); Lymphocytes # (A) 0.8 k/uL (1.0-4.8); Lymphocytes % (A) 10 %; MCH 27.6 pg (25.0-35.0); MCHC 32.5 g/dL (31.0-37.0); MCV 84.9 fL (80.0-100.0); Mean Platelet Volume 7.9; Monocytes # (A) 0.3 k/uL (0-1.0); Monocytes % (A) 4 %; Neutrophils # (A) 6.4 k/uL (1.3-7.7); Neutrophils % (A) 83 %; Platelet Count 284 k/uL (150-450); RBC 4.11 m/uL (3.80-5.40); WBC 7.8 k/uL (3.8-10.6)
[2019-04-13] MEDS: HYDROcodone/APAP 5-325MG 1 EACH TAB PO PRN ×2 (08:56→19:38)
[2019-04-13] MEDS ORDERED: MAGNESIUM HYDROXIDE 2,400 MG/10 ML CUP PO PRN (10:32)
--- NOTE | 2019-04-13 12:49 | P.PN ---
Subjective Progress Note Date: 04/13/19 Principal diagnosis: Status post direct anterior left total hip arthroplasty Patient evaluated today at bedside, she is resting comfortably. She was able to get to the chair today. She denies any chest pain or shortness of breath. She admits to constipation at this time. Objective - Vital Signs Vital signs: Vital Signs Temp 98.3 F 04/13/19 07:31 Pulse 72 04/13/19 07:31 Resp 16 04/13/19 07:31 BP 165/72 04/13/19 07:31 Pulse Ox 96 04/13/19 07:31 Intake & Output 04/12/19 04/13/19 04/13/19 18:59 06:59 18:59 Intake Total 880 800 240 Output Total 1300 400 Balance -420 400 240 Intake: Intake, IV Titration 400 800 Amount Sodium Chloride 0.9% 1, 400 800 000 ml @ 50 mls/hr IV . Q20H RED Rx#:[id number] Oral 480 240 Output: Urine 1300 400 Uretheral ([place]) 1300 Emesis 0 Other: Voiding Method Indwelling Catheter # Bowel Movements 0 - Exam Left lower extremity: Incision is clean, dry, and intact. The exofin fusion tape is in good condition. There is minimal soft tissue swelling and ecchymosis surrounding the medial and lateral aspects of the incision. Calf is soft, no tenderness with palpation. Plantar flexion, dorsiflexion, EHL, FHL are intact. Sensory exam to light touch throughout the extremity is intact, dorsal pedis pulses 2+. - Labs CBC & Chem 7: 04/13/19 07:03 04/09/19 14:44 Labs: Abnormal Lab Results - Last 24 Hours (Table) 04/13/19 Range/Units 07:03 Hgb 11.3 L (11.4-16.0) gm/dL Lymphocytes # 0.8 L (1.0-4.8) k/uL Assessment and Plan Plan: Assessment: Postoperative day #3 status post left total hip arthroplasty Plan: Pain control, continue current medication GI and DVT prophylaxis, continue current medication Ice and elevate often Continue work with physical therapy Medical recommendations Multiple medications and an order for constipation Hopeful discharge to rehab today Time with Patient: Less than 30
[2019-04-13] MEDS: BISACODYL 10 MG SUPP RECTAL SCH (12:51)
--- NOTE | 2019-04-13 16:03 | P.DS ---
Providers Date of admission: 04/09/19 16:37 Expected date of discharge: 04/13/19 Attending physician: Pravin Merlos Consults: 04/09/19 16:23 Consult Physician Routine Consulting Provider: Aleksandr Philip Consult Reason/Comments: hip fracture, medicine consult Do you want consulting provider notified?: Yes 04/09/19 21:52 Consult Physician Urgent Consulting Provider: Juan Alberto Larose Consult Reason/Comments: abnormal cxr-pre op clearance Do you want consulting provider notified?: Yes Primary care physician: Teto Solis Hospital Course: Date of admission: 04/09/2019 Date of discharge: 04/13/2019 Admission diagnosis: Displaced left femoral neck fracture Discharge diagnosis: Status post direct anterior left total hip arthroplasty Attending physician: Dr. Merlos Surgical procedures: Direct anterior left total hip arthroplasty Brief history: Patient is a 83-year-old female who presented to [facility] on 04/09/2019 after sustaining a fall. She injured her left hip during the fall, resulting in a displaced left femoral neck fracture. She was admitted under orthopedic care for plan for surgical intervention. She underwent a direct anterior left total hip arthroplasty on 04/10/2019. Hospital course: Details of patient's surgery can be found in operative report. Patient tolerated the procedure well and was subsequently transported to orthopedic floor. Patient's orthopeidc and medical care was provided daily. Patient had daily laboratory tests performed for evaluation of overall blood counts. Patient had daily physical therapy to include strengthening range of motion as well as education with walker ambulation. Patient was treated with Lovenox for their postoperative DVT prophylaxis during their inpatient stay. Patient was noted to have a relatively uneventful postoperative course. Patient reported satisfactory pain control with oral pain medications by postoperative day 0. Patient showed satisfactory progress with physical therapy. Patient moved steadily through the program and had no difficulty meeting the goals by postoperative day 3. Given patient's otherwise satisfactory course and having met physical therapy goals, plan is to discharge patient rehab on postoperative day 3. Discharge condition/disposition: Patient will be discharged rehab in stable condition. Discharge medications: Instructions are given on resumption of patient's normal daily medications per primary care recommendation, in addition patient will be prescribed Wilton 5 mg/325 mg, Tylenol 500 mg, ferrous sulfate 325 mg, aspirin 81 mg. Discharge instructions: 1. Wound care and infection precautions, keep incision dry and covered while showering, no lotions, creams, moisturizers. No soaking, tubs, pools, hottubs. Do not scrub over the incision. 2. Weight-bear as tolerated with walker / cane until follow-up. 3. Ice and elevate when necessary. Do not exceed 20 minutes per hour with ice pack. 4. Utilize compression sleeve until seen at first follow up appointment. 5. Visiting nursing care. 6. Home physical therapy. 7. Pain meds and anticoagulants per prescription. 8. Pain medication has potential to cause constipation. Increase oral fluid and fiber intake. Contact primary care provider if you have not had a bowel movement within 48 hours after discharge 9. No anti-inflammatory medication until discussed at first post operative visit, this including Motrin, Aleve, Mobic, Diclofenac. 10. Follow up in office at 2 weeks postop with Tone Maldonado PA-C 11. Follow up with your primary care doctor 7-10 days after discharge. 12. Contact [facility] with any questions, . Procedures: Left direct anterior total hip arthroplasty Patient Condition at Discharge: Good Plan - Discharge Summary Discharge Rx Participant: No New Discharge Prescriptions: New Aspirin [Adult Low Dose Aspirin EC] 81 mg PO BID #60 tablet. Docusate [Colace] 100 mg PO DAILY #30 capsule Ferrous Sulfate [Iron (65 MG Elemental)] 325 mg PO BID #30 tab Acetaminophen Tab [Tylenol Tab] 500 mg PO Q6H PRN #30 tablet PRN Reason: Pain Hydrocodone/Acetaminophen [Wilton 5-325] 1 - 2 each PO Q6HR PRN #40 tab PRN Reason: Pain No Action Omeprazole [PriLOSEC] 20 mg PO DAILY Metoprolol Succinate (ER) [Toprol Xl] 50 mg PO DAILY Timolol Maleate [Timolol Maleate 0.5% Ophth Gel] 1 drop BOTH EYES BID Potassium Chloride ER [K-Dur 20] 20 meq PO DAILY Diclofenac Sodium [Voltaren-Xr] 100 mg PO DAILY Valsartan/Hydrochlorothiazide [Diovan Hct 160-25 mg Tablet] 100 mg PO DAILY Donepezil [Aricept] 10 mg PO HS Discharge Medication List Diclofenac Sodium [Voltaren-Xr] 100 mg PO DAILY 11/10/18 [History] Donepezil [Aricept] 10 mg PO HS 11/10/18 [History] Metoprolol Succinate (ER) [Toprol Xl] 50 mg PO DAILY 11/10/18 [History] Omeprazole [PriLOSEC] 20 mg PO DAILY 11/10/18 [History] Potassium Chloride ER [K-Dur 20] 20 meq PO DAILY 11/10/18 [History] Timolol Maleate [Timolol Maleate 0.5% Ophth Gel] 1 drop BOTH EYES BID 11/10/18 [History] Valsartan/Hydrochlorothiazide [Diovan Hct 160-25 mg Tablet] 100 mg PO DAILY 11/10/18 [History] Acetaminophen Tab [Tylenol Tab] 500 mg PO Q6H PRN #30 tablet 04/13/19 [Rx] Aspirin [Adult Low Dose Aspirin EC] 81 mg PO BID #60 tablet. 04/13/19 [Rx] Docusate [Colace] 100 mg PO DAILY #30 capsule 04/13/19 [Rx] Ferrous Sulfate [Iron (65 MG Elemental)] 325 mg PO BID #30 tab 04/13/19 [Rx] Hydrocodone/Acetaminophen [Wilton 5-325] 1 - 2 each PO Q6HR PRN #40 tab 04/13/19 [Rx] Follow up Appointment(s)/Referral(s): Teto Solis MD [Primary Care Provider] - 1-2 days Zenon Maldonado PAC [PHYSICIAN STEWARD/[facility]] - 2 Weeks Patient Instructions/Handouts: Anterior Hip Replacement (DC), Anterior Hip Replacement (GEN) Activity/Diet/Wound Care/Special Instructions: Orthopedic Discharge Instructions: 1. Wound care and infection precautions, keep incision dry and covered while showering, no lotions, creams, moisturizers. No soaking, pools, hot tubs. Do not scrub over incision. 2. Weight-bear as tolerated with walker / cane until follow-up. 3. Ice and elevate when necessary. Do not exceed 20 minutes per hour with ice pack. 4. Utilize compression sleeve until seen at first follow up appointment. 5. Pain meds and anticoagulants per prescription. 6. Pain medication has potential to cause constipation. Increase oral fluid and fiber intake. Contact primary care provider if you have not had a bowel movement within 48 hours after discharge. 7. No anti-inflammatory medication until discussed at first post operative visit, this including Motrin, Aleve, Mobic, Diclofenac. 8. Follow up in office at 2 weeks postop with Tone Maldonado PA-C 9. Follow up with your primary care doctor 7-10 days after discharge. 10. Contact [facility] with any questions, . Discharge Disposition: TRANSFER TO SNF/ECF
[2019-04-13] MEDS: DONEPEZIL 10 MG TAB PO SCH (20:26)
[2019-04-13] MEDS: SENNOSIDES-DOCUSATE SODIUM 1 EACH TAB PO SCH (20:26)
[2019-04-14] MEDS: LACTATED RINGERS 1,000 ML IV SCH (02:46)
[2019-04-14] MEDS: SODIUM CHLORIDE 0.9% 1,000 ML IV SCH (02:46)
[2019-04-14 03:21] VITALS: RESP 18
--- NOTE | 2019-04-14 06:44 | PN ---
PROGRESS NOTE DATE OF SERVICE: 04/13/2019 PRESENTING COMPLAINT: Femur fracture. INTERVAL HISTORY: Patient was seen by me yesterday. Doing well, comfortable. Pain is controlled. No new issues. Tolerating a diet. No chest pain or shortness of breath. REVIEW OF SYSTEMS: Done for constitutional, cardiovascular, GI, pulmonary; relevant findings as above. CURRENT MEDICATIONS: Current medications are reviewed. PHYSICAL EXAMINATION: On examination, temperature 98.3, pulse 72, respiration 16, blood pressure 165/72, pulse ox 96% on room air. GENERAL APPEARANCE: Lying in bed, comfortable. EYES: Pupils equal. Conjunctivae normal. NECK: JVD not raised. Mass not palpable. RESPIRATORY: Effort normal. LUNGS: Decreased breath sounds. CARDIOVASCULAR: First and second sounds normal. No edema. ABDOMEN: Soft, nontender. Liver and spleen not palpable. PSYCHIATRY: Alert and oriented x3. Mood and affect normal. INVESTIGATIONS: White count 7.8, hemoglobin 11.3. ASSESSMENT: 1. Left femur fracture by dropping object, followed by hemiarthroplasty. 2. Primary osteoarthritis multiple joints. 3. Chronic gait dysfunction, uses a cane at the baseline. 4. Gastroesophageal reflux disease. 5. Essential hypertension. 6. Chronic hiatal hernia. 7. Chronic urinary incontinence. 8. Acute postoperative blood-loss anemia as expected from surgery. PLAN: Patient is stable. Continue current medication and treatment plan. Care was discussed with the patient. MMODL / IJN: [id number] /
[2019-04-14 07:45] VITALS: PULSE 68; TEMP 97.8
[2019-04-14 07:50] VITALS: BP 150/60
[2019-04-14] MEDS: TIMOLOL 0.5% OPHTH DROPS 5 ML BTL BOTH EYES SCH (07:51)
[2019-04-14] MEDS: ETODOLAC 300 MG CAPSULE PO SCH ×2 (07:51→15:23)
[2019-04-14] MEDS: HYDROCHLOROTHIAZIDE 25 MG TAB PO SCH (07:51)
[2019-04-14] MEDS: VALSARTAN 160 MG TAB PO SCH (07:51)
[2019-04-14] MEDS: FERROUS SULFATE 325 MG TAB PO SCH ×2 (07:51→17:19)
[2019-04-14] MEDS: METOPROLOL TARTRATE 50 MG TAB PO SCH (07:51)
[2019-04-14] MEDS: PANTOPRAZOLE 40 MG TABLET PO SCH (07:51)
[2019-04-14] MEDS: ENOXAPARIN 40 MG/0.4 ML SYRINGE SQ SCH (07:51)
[2019-04-14] MEDS: BISACODYL 10 MG SUPP RECTAL SCH (07:52)
[2019-04-14] MEDS ORDERED: BISACODYL 10 MG SUPP RECTAL SCH (09:00)
--- NOTE | 2019-04-14 10:17 | P.PN ---
Subjective Progress Note Date: 04/14/19 Principal diagnosis: Status post direct anterior left total hip arthroplasty Patient evaluated today at bedside, she is resting comfortably. Patient was not discharged to rehab last night, plan for discharge today. She denies any chest pain or shortness of breath. She admits to constipation at this time. Objective - Vital Signs Vital signs: Vital Signs Temp 97.8 F 04/14/19 07:00 Pulse 68 04/14/19 07:00 Resp 18 04/14/19 07:00 BP 150/60 04/14/19 07:50 Pulse Ox 94 L 04/14/19 07:00 Intake & Output 04/13/19 04/14/19 04/14/19 18:59 06:59 18:59 Intake Total 240 400 240 Balance 240 400 240 Intake: IV 400 Lactated Ringers 1,000 ml 400 @ 50 mls/hr IV .Q20H RED Rx#:[id number] Oral 240 240 Other: Voiding Method Bedpan # Voids 3 1 # Bowel Movements 1 - Exam Left lower extremity: Incision is clean, dry, and intact. The exofin fusion tape is in good condition. There is minimal soft tissue swelling and ecchymosis surrounding the medial and lateral aspects of the incision. Calf is soft, no tenderness with palpation. Plantar flexion, dorsiflexion, EHL, FHL are intact. Sensory exam to light touch throughout the extremity is intact, dorsal pedis pulses 2+. - Labs CBC & Chem 7: 04/13/19 07:03 04/09/19 14:44 Assessment and Plan Plan: Assessment: Postoperative day #4 status post left total hip arthroplasty Plan: Pain control, continue current medication GI and DVT prophylaxis, continue current medication Ice and elevate often Continue work with physical therapy Medical recommendations Multiple medications and an order for constipation Discharge rehab today Time with Patient: Less than 30
--- NOTE | 2019-04-16 12:37 | PN ---
PROGRESS NOTE DATE OF SERVICE: 04/14/2019 PRESENTING COMPLAINT: Femur fracture. INTERVAL HISTORY: The patient was seen by me on 04/14/2019. Doing well, stable. Pain is controlled. No new issues. Awaiting to be discharged. REVIEW OF SYSTEMS: Done for constitutional, cardiovascular, GI, pulmonary, musculoskeletal; relevant findings as above. CURRENT MEDICATIONS: Current medications are reviewed. PHYSICAL EXAMINATION: On examination, temperature 97.8, pulse 58, respiration 18, blood pressure 150/60, pulse ox 94% on room air. GENERAL APPEARANCE: Sitting up, comfortable. EYES: Pupils equal. Conjunctivae normal. NECK: JVD not raised. Mass not palpable. RESPIRATORY: Effort normal. LUNGS: Decreased breath sounds. CARDIOVASCULAR:First and second sounds normal. No edema. ABDOMEN: Soft, nontender. Liver and spleen not palpable. PSYCHIATRY: Alert and oriented x3. Mood and affect normal. ASSESSMENT: 1. Left femur fracture followed by hemiarthroplasty. 2. Primary osteoarthritis multiple joints. 3. Chronic gait dysfunction, uses a cane at baseline. 4. Gastroesophageal reflux disease. 5. Essential hypertension. 6. Chronic hiatal hernia. 7. Chronic urinary incontinence. 8. Acute postoperative blood loss anemia expected from surgery. PLAN: Continue current medication and treatment plan. Medications reviewed. MMODL / IJN: [id number] /
== END 2019-04-14 17:51 | DRG 470 ==
LOC: EC 13:26 → 4SSUR 16:37
PROVIDERS: ADMIT Orthopaedic Surgery; ATTEND Orthopaedic Surgery
PROC: 0SRB04A Replacement of Left Hip Joint with Ceramic on Polyethylene Synthetic Substitute, Uncemented, Open Approach (ICD-10-PCS; principal; 2019-04-10 07:30)
DX: S72.012A Unspecified intracapsular fracture of left femur, initial encounter for closed fracture (principal); D62 Acute posthemorrhagic anemia; I44.7 Left bundle-branch block, unspecified; E78.5 Hyperlipidemia, unspecified; M19.042 Primary osteoarthritis, left hand; M19.041 Primary osteoarthritis, right hand; M17.0 Bilateral primary osteoarthritis of knee; I10 Essential (primary) hypertension; K21.9 Gastro-esophageal reflux disease without esophagitis; H40.9 Unspecified glaucoma; K44.9 Diaphragmatic hernia without obstruction or gangrene; M85.80 Other specified disorders of bone density and structure, unspecified site; R26.9 Unspecified abnormalities of gait and mobility; R32 Unspecified urinary incontinence; Z79.82 Long term (current) use of aspirin; Z79.899 Other long term (current) drug therapy; Z98.890 Other specified postprocedural states; W18.09XA Striking against other object with subsequent fall, initial encounter; K59.00 Constipation, unspecified
CPT/HCPCS: 36415; 71045; 73501; 73502; 80053; 85025; 85610; 85730; 86850; 86900; 86901; 88305; 88311; 93005; 94760; 96374; 99285

== ENCOUNTER → 2019-09-21 | Outpatient (CLI) | payer MEDICARE, OTHER ==
[2019-09-21 15:22] LABS: African American GFR (CKD) >90 (>60 ml/min/1.73 sqM); Blood Urea Nitrogen 17 mg/dL (7-17)
--- NOTE | 2019-09-21 16:54 | CT ---
EXAMINATION TYPE: CT chest w con DATE OF EXAM: 09/21/2019 COMPARISON: Chest x-ray dated 04/09/2019 HISTORY: Restrictive lung disease. CT DLP: 405 mGycm. Automated Exposure Control for Dose Reduction was Utilized. TECHNIQUE: CT scan of the thorax is performed following with IV Contrast, patient injected with 100 mL of Isovue M300. FINDINGS: LUNGS: There is a large hiatal hernia and diaphragmatic hernia containing loops of colon, mesenteric vasculature, majority of the pancreas, and mesenteric fat as well as portions of the splenic vein and artery. There is adjacent atelectasis surrounding the large hiatal hernia. There is a spiculated nodule in the left upper lobe abutting the interlobar fissure with fissural thi ckening. This measures 0.5 cm in craniocaudal dimension and 1.6 cm in transverse 0.8 cm in anterior p osterior dimension. There are a few subsolid subcentimeter scattered right lung pulmonary nodules suc h as on image 12, image 28, image 33, and image 42. There is no pleural effusion or pneumothorax seen. The tracheobronchial tree is patent. MEDIASTINUM: There are no greater than 1 cm hilar or mediastinal lymph nodes. No pericardial effusi on is seen. Severe coronary calcifications. Extensive atheromatous changes of the aorta with marked narrowing of the proximal left subclavian artery, nearly occluded. OTHER: Very vague questionable subcentimeter too small to accurately characterize hepatic lesions on image 57 and 58 in the liver. Exaggerated thoracic kyphosis demineralization with moderate degenerati ve changes of the spine. IMPRESSION: 1. Spiculated left upper lobe pulmonary nodule concerning for developing neoplasm. This could be furt her assessed with PET/CT. Smaller right-sided pulmonary nodules are nonspecific. 2. Large hiatal hernia containing the majority the stomach, portions of the pancreas, mesenteric vasc ulature, and large bowel. 3. 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
== END | disposition home or self-care (01) ==
LOC: RADCTMAIN 14:44
PROVIDERS: ATTEND Internal Medicine Critical Care Medicine
DX: K44.9 Diaphragmatic hernia without obstruction or gangrene (principal); R91.8 Other nonspecific abnormal finding of lung field; I24.0 Acute coronary thrombosis not resulting in myocardial infarction
CPT/HCPCS: 82565; 84520; 71260; 36415; Q9967

== ENCOUNTER 2021-11-10 18:30 | Inpatient (IN) | payer MEDICARE, OTHER ==
[2021-11-10] MEDS ORDERED: SODIUM CHLORIDE 0.9% 500 ML 500 ML IV STA (18:40)
[2021-11-10 19:03] LABS: Basophils % (A) 0 %; Eosinophils # (A) 0.4 k/uL (0-0.7); Eosinophils % (A) 5 %; HGB 12.6 gm/dL (11.4-16.0); Lymphocytes # (A) 1.4 k/uL (1.0-4.8); Lymphocytes % (A) 17 %; MCH 30.9 pg (25.0-35.0); MCHC 32.4 g/dL (31.0-37.0); MCV 95.3 fL (80.0-100.0); Mean Platelet Volume 8.2; Monocytes # (A) 0.3 k/uL (0-1.0); Monocytes % (A) 4 %; Neutrophils # (A) 6.1 k/uL (1.3-7.7); Neutrophils % (A) 73 %; Platelet Count 368 k/uL (150-450); RBC 4.09 m/uL (3.80-5.40); RDW 13.2 % (11.5-15.5); WBC 8.4 k/uL (3.8-10.6)
--- NOTE | 2021-11-10 19:14 | ED ---
Arrhythmia/Palpitations HPI - General Chief Complaint: Arrhythmia/Palpitations Stated Complaint: bradycardia Source: patient, EMS Mode of arrival: EMS Limitations: altered mental status - History of Present Illness Initial Comments: Kesha is a pleasantly demented 86-year-old female is brought to the ER today from her intermediate for evaluation of bradycardia. Patient reports she hasn't been feeling right all day. Patient was admitted in that intermediate in October with a diagnosis of right cardiac, her previous prescription from Metoprolol has been held since her admission to the intermediate on Oct 20. - Related Data Home Medications Medication Instructions Recorded Confirmed Omeprazole [PriLOSEC] 20 mg PO HS@209911/10/18 11/10/21 Timolol Maleate [timoloL maleate 1 drop BOTH EYES BID@699,209911/10/18 11/10/21 0.5% Ophth Gel] Acetaminophen [Tylenol] 650 mg PO Q4H PRN 11/10/21 11/10/21 Ferrous Sulfate [Iron (65 MG 325 mg PO BID@699,209911/10/21 11/10/21 Elemental)] Latanoprost/Pf [Latanoprost 0.005% 1 drop BOTH EYES HS@199911/10/21 11/10/21 Eye Drop] Loperamide HCl [Imodium A-D] 2 mg PO Q1H PRN 11/10/21 11/10/21 Losartan/Hydrochlorothiazide 1 tab PO DIRECTED 11/10/21 11/10/21 [Losartan-Hctz 100-25 mg Tab] Magnesium Hydroxide [Milk of 7,200 mg PO DAILY PRN 11/10/21 11/10/21 Magnesia Concentrate] Metoprolol Tartrate [Lopressor] 50 mg PO DIRECTED 11/10/21 11/10/21 Ocular Vitamin Tablet 1 tab PO DAILY@69911/10/21 11/10/21 amLODIPine [Norvasc] 10 mg PO DAILY@69911/10/21 11/10/21 Allergies Allergy/AdvReac Type Severity Reaction Status Date / Time No Known Allergies Allergy Verified 11/10/21 19:21 Review of Systems ROS Statement: Those systems with pertinent positive or pertinent negative responses have been documented in the HPI. ROS Other: All systems not noted in ROS Statement are negative. Past Medical History Past Medical History: Eye Disorder, GERD/Reflux, Hypertension, Osteoarthritis (OA) Additional Past Medical History / Comment(s): cellulitis and glaucoma. Hiatal hernia History of Any Multi-Drug Resistant Organisms: None Reported Past Surgical History: Appendectomy, Tonsillectomy Past Anesthesia/Blood Transfusion Reactions: No Reported Reaction Past Psychological History: No Psychological Hx Reported Smoking Status: Never smoker Past Alcohol Use History: Occasional Past Drug Use History: None Reported - Past Family History Father Family Medical History: Unable to Obtain Mother Family Medical History: Unable to Obtain General Exam - General Exam Comments Initial Comments: Physical Exam GENERAL: Elderly, pale, no acute distress HENT: Normocephalic, Atraumatic. EYES: PERRL, EOMI PULMONARY: Crackles CARDIOVASCULAR: Irregular, slow, pulse in 30s ABDOMEN: Soft and nontender with normal bowel sounds. SKIN: Skin is clear with no lesions or rashes and otherwise unremarkable. : Deferred NEUROLOGIC: Patient is alert and oriented x3. Moving all extremities spontaneously MUSCULOSKELETAL: Normal extremities with adequate strength and full range of motion. No lower extremity swelling or edema. No calf tenderness. PSYCHIATRIC: Normal psychiatric evaluation. Limitations: altered mental status Course Vital Signs 11/10/21 11/10/21 11/10/21 18:40 18:48 19:46 Temperature 98.6 F Pulse Rate 41 L 55 L Pulse Rate [ 42 L [employer] ] Respiratory 18 18 Rate Blood Pressure 78/66 146/83 O2 Sat by Pulse 95 93 L Oximetry 11/10/21 11/10/21 20:46 22:30 Temperature Pulse Rate 56 L 43 L Pulse Rate [ [employer] ] Respiratory 18 18 Rate Blood Pressure 136/89 138/51 O2 Sat by Pulse 93 L 94 L Oximetry EKG Findings - EKG Comments: EKG Findings:: Initial EKG had ordered due to bradycardia, rate is 54 rhythm is an irregular narrow complex bradycardia. I cannot identify any P waves before each QRS or any relationship between P waves and QRS. This appears to be a complete heart block. No acute ST elevations or depressions no evidence of ischemia or infarction. Repeat EKG was obtained to confirm rhythm, repeat EKG was obtained at 1857, rate is 47 rhythm is a narrow complex irregularly irregular bradycardia with no relationship between P waves and QRS. This appears to be complete heart block. Medical Decision Making - Medical Decision Making Patient was seen and evaluated upon arrival to the emergency department, EMS provided a rhythm strip which appears to have a complete heart block, EKG suggestive of complete heart block labs and imaging were obtained patient has a stable blood pressure she remains asymptomatic Patient did receive 1 mg of atropine in route to the hospital if no improvement in her heart rate Patient care was discussed with cardiology on-call Dr. Dolan, EKGs were faxed to him for his review he agrees this appears to be a complete heart block recommends dopamine infusion, placement of cutaneous pacer pads, admission to the hospital. Cardiology Dr. Dolan to be notified if patient becomes symptomatic prior to evaluation in the morning. Patient care was discussed with her primary care physician Dr. Longo who accepts the admission Patient care was discussed with Dr Larose who accepts the patient to ICU - Lab Data Result diagrams: 11/10/21 18:57 11/10/21 18:57 Lab Results 11/10/21 11/10/21 11/10/21 Range/Units 18:57 18:57 18:57 WBC 8.4 (3.8-10.6) k/uL RBC 4.09 (3.80-5.40) m/uL Hgb 12.6 (11.4-16.0) gm/dL Hct 39.0 (34.0-46.0) % MCV 95.3 (80.0-100.0) fL MCH 30.9 (25.0-35.0) pg MCHC 32.4 (31.0-37.0) g/dL RDW 13.2 (11.5-15.5) % Plt Count 368 (150-450) k/uL MPV 8.2 Neutrophils % 73 % Lymphocytes % 17 % Monocytes % 4 % Eosinophils % 5 % Basophils % 0 % Neutrophils # 6.1 (1.3-7.7) k/uL Lymphocytes # 1.4 (1.0-4.8) k/uL Monocytes # 0.3 (0-1.0) k/uL Eosinophils # 0.4 (0-0.7) k/uL Basophils # 0.0 (0-0.2) k/uL PT 10.5 (9.0-12.0) sec INR 1.0 (<1.2) APTT 21.4 L (22.0-30.0) sec Sodium 139 (137-145) mmol/L Potassium 4.2 (3.5-5.1) mmol/L Chloride 110 H (98-107) mmol/L Carbon Dioxide 21 L (22-30) mmol/L Anion Gap 8 mmol/L BUN 16 (7-17) mg/dL Creatinine 0.93 (0.52-1.04) mg/dL Est GFR (CKD-EPI)AfAm 65 (>60 ml/min/1.73 sqM) Est GFR (CKD-EPI)NonAf 57 (>60 ml/min/1.73 sqM) Glucose 94 (74-99) mg/dL Calcium 8.7 (8.4-10.2) mg/dL Magnesium 1.9 (1.6-2.3) mg/dL Total Bilirubin 0.7 (0.2-1.3) mg/dL AST 23 (14-36) U/L ALT 11 (4-34) U/L Alkaline Phosphatase 81 (38-126) U/L Troponin I (0.000-0.034) ng/mL NT-Pro-B Natriuret Pep pg/mL Total Protein 6.5 (6.3-8.2) g/dL Albumin 3.3 L (3.5-5.0) g/dL 11/10/21 11/10/21 Range/Units 18:57 18:57 WBC (3.8-10.6) k/uL RBC (3.80-5.40) m/uL Hgb (11.4-16.0) gm/dL Hct (34.0-46.0) % MCV (80.0-100.0) fL MCH (25.0-35.0) pg MCHC (31.0-37.0) g/dL RDW (11.5-15.5) % Plt Count (150-450) k/uL MPV Neutrophils % % Lymphocytes % % Monocytes % % Eosinophils % % Basophils % % Neutrophils # (1.3-7.7) k/uL Lymphocytes # (1.0-4.8) k/uL Monocytes # (0-1.0) k/uL Eosinophils # (0-0.7) k/uL Basophils # (0-0.2) k/uL PT (9.0-12.0) sec INR (<1.2) APTT (22.0-30.0) sec Sodium (137-145) mmol/L Potassium (3.5-5.1) mmol/L Chloride (98-107) mmol/L Carbon Dioxide (22-30) mmol/L Anion Gap mmol/L BUN (7-17) mg/dL Creatinine (0.52-1.04) mg/dL Est GFR (CKD-EPI)AfAm (>60 ml/min/1.73 sqM) Est GFR (CKD-EPI)NonAf (>60 ml/min/1.73 sqM) Glucose (74-99) mg/dL Calcium (8.4-10.2) mg/dL Magnesium (1.6-2.3) mg/dL Total Bilirubin (0.2-1.3) mg/dL AST (14-36) U/L ALT (4-34) U/L Alkaline Phosphatase (38-126) U/L Troponin I <0.012 (0.000-0.034) ng/mL NT-Pro-B Natriuret Pep 3720 pg/mL Total Protein (6.3-8.2) g/dL Albumin (3.5-5.0) g/dL Critical Care Time Critical Care Time: Yes Total Critical Care Time: 30 Critical Care Time: Critical Care Time 30 Critical care time was exclusive of separately billable procedures and treating other patients and teaching time. Critical care was necessary to treat or prevent imminent or life-threatening deterioration. Given the critical condition in which the patient arrived, the patient was immediately assessed by myself and the nurse, and cardiac monitoring initiated due to the potential for rapid decompensation of the patient's clinical condition. During the course of the patients stay, I spent a considerable amount of time at the bedside performing serial re-evaluations of the patient's hemodynamic and clinical status because of the recognized potential threat to life or limb in this condition. I then had a chance to review not only all of the available current laboratory and radiographic studies obtained today, but I also reviewed old records available to me at the time. 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 Sequential vital signs were obtained. Disposition Clinical Impression: Heart block Disposition: ADMITTED IP TO THIS HOSP Condition: Critical Is patient prescribed a controlled substance at d/c from ED?: No Referrals: Tima Longo MD [Primary Care Provider] - 1-2 days
[2021-11-10 19:21] LABS: Albumin 3.3 g/dL (3.5-5.0); Calcium 8.7 mg/dL (8.4-10.2); Magnesium 1.9 mg/dL (1.6-2.3); Total Bilirubin 0.7 mg/dL (0.2-1.3); Total Protein 6.5 g/dL (6.3-8.2)
[2021-11-10 19:25] LABS: Partial Thromboplastin Time 21.4 sec (22.0-30.0); Prothrombin Time 10.5 sec (9.0-12.0)
[2021-11-10 19:37] LABS: Potassium 4.2 mmol/L (3.5-5.1)
--- NOTE | 2021-11-10 19:44 | XR ---
EXAMINATION TYPE: XR chest 1V portable DATE OF EXAM: 11/10/2021 COMPARISON: NONE HISTORY: Chest pain TECHNIQUE: 04/09/2019 FINDINGS: There is some blunting of the costophrenic angles. There is pulmonary vascular congestion. Thoracic aorta is atheromatous. There is markedly large hiatal hernia elevated left diaphragm with sp lenic flexure of the colon and stomach extending superiorly above the left pulmonary hilum. There are chest leads. IMPRESSION: Congestive heart failure with large diaphragmatic hernia containing splenic flexure and stomach. Maria Dolores ia appears similar to old exam. Congestive heart failure is new compared to old exam. Pleural effusions are new.
[2021-11-10] MEDS ORDERED: DOPamine DRIP 800 MG in DEXTROSE/WATER 1 250ML.BAG IV ONE (20:20)
[2021-11-10] MEDS ORDERED: NALOXONE 0.4 MG/ML 1 ML VIAL IV PRN (23:18)
[2021-11-11] MEDS ORDERED: LOPERAMIDE 2 MG CAP PO PRN (09:29)
--- NOTE | 2021-11-11 10:52 | P.CNPUL ---
History of Present Illness Consult date: 11/11/21 Requesting physician: Tima Longo Reason for consult: dyspnea, cough, hypoxemia, abnormal CXR/CT, other Chief complaint: Shortness of breath, lower extremity edema. History of present illness: Pulmonary consult dated 11/11/2021. 86-year-old female, who came into the emergency department on November 10. She was brought in from the group home, with a very slow heart rate. The patient hasn't been feeling well for the last week or so. She describes shortness of breath, swelling of her feet, cough, occasional phlegm production, and weakness. The patient was found have a cardiac, and was started on dopamine at 5 mcg/kg/m. She was also given O2 at 2 L. She has a history of gastroesophageal reflux disease, hypertension, osteoarthritis, cellulitis, glaucoma, and hiatal hernia. White count 8.4, hemoglobin 12.6, hematocrit 39, and platelet count 360,000. PTT was 21.4. Sodium 139, potassium 4.2, chlorides 110, CO2 21, anion gap 8, BUN 16, creatinine 0.93. Troponin was normal. N-terminal proBNP was 3720. Albumin was 3.3. Chest x-ray was consistent with fluid overload/CHF. Review of Systems REVIEW OF SYSTEMS: CONSTITUTIONAL: Weakness and fatigue. NEUROLOGIC: [ Negative.] HEENT: [ Negative.] CARDIAC: Lower extremity edema. PULMONARY: Shortness of breath and cough, phlegm production. GI: [Negative.] : [Negative.] RHEUMATOLOGIC: [ Negative.] IMMUNOLOGIC: [ Negative.] ENDOCRINE: [Negative. ] DERMATOLOGIC: [Negative.] Past Medical History Past Medical History: Eye Disorder, GERD/Reflux, Hypertension, Osteoarthritis (OA) Additional Past Medical History / Comment(s): cellulitis and glaucoma. Hiatal hernia History of Any Multi-Drug Resistant Organisms: None Reported Past Surgical History: Appendectomy, Tonsillectomy Past Anesthesia/Blood Transfusion Reactions: No Reported Reaction Past Psychological History: No Psychological Hx Reported Smoking Status: Never smoker Past Alcohol Use History: Occasional Past Drug Use History: None Reported - Past Family History Father Family Medical History: Unable to Obtain Mother Family Medical History: Unable to Obtain Medications and Allergies Home Medications Medication Instructions Recorded Confirmed Type Omeprazole [PriLOSEC] 20 mg PO HS@2100 11/10/18 11/10/21 History Timolol Maleate [timoloL maleate 1 drop BOTH EYES BID@699,209911/10/18 11/10/21 History 0.5% Ophth Gel] Acetaminophen [Tylenol] 650 mg PO Q4H PRN 11/10/21 11/10/21 History Ferrous Sulfate [Iron (65 MG 325 mg PO BID@699,209911/10/21 11/10/21 History Elemental)] Latanoprost/Pf [Latanoprost 0.005% 1 drop BOTH EYES HS@199911/10/21 11/10/21 History Eye Drop] Loperamide HCl [Imodium A-D] 2 mg PO Q1H PRN 11/10/21 11/10/21 History Losartan/Hydrochlorothiazide 1 tab PO DIRECTED 11/10/21 11/10/21 History [Losartan-Hctz 100-25 mg Tab] Magnesium Hydroxide [Milk of 7,200 mg PO DAILY PRN 11/10/21 11/10/21 History Magnesia Concentrate] Metoprolol Tartrate [Lopressor] 50 mg PO DIRECTED 11/10/21 11/10/21 History Ocular Vitamin Tablet 1 tab PO DAILY@0711/10/21 11/10/21 History amLODIPine [Norvasc] 10 mg PO DAILY@69911/10/21 11/10/21 History Allergies Allergy/AdvReac Type Severity Reaction Status Date / Time No Known Allergies Allergy Verified 11/10/21 19:21 Physical Exam Osteopathic Statement: *. No significant issues noted on an osteopathic structural exam other than those noted in the History and Physical/Consult. Vitals: Vital Signs Temp Pulse Pulse Resp BP BP Pulse Ox 11/11/21 10:00 98.8 F 108 H 17 122/94 98 11/11/21 09:50 90 16 131/95 11/11/21 09:40 98.0 F 60 20 128/105 97 11/11/21 07:07 60 18 136/51 92 L 11/11/21 05:19 51 L 18 157/49 96 11/11/21 04:00 53 L 18 171/84 96 11/11/21 03:00 58 L 18 155/55 96 11/11/21 02:18 47 L 18 169/58 94 L 11/11/21 00:13 48 L 18 165/52 93 L 11/10/21 22:30 43 L 18 138/51 94 L 11/10/21 20:46 56 L 18 136/89 93 L 11/10/21 19:46 55 L 18 146/83 93 L 11/10/21 18:48 42 L 11/10/21 18:40 98.6 F 41 L 18 78/66 95 Intake and Output 11/10/21 11/11/21 11/11/21 22:59 06:59 14:59 Other: Weight 69.853 kg No acute distress, oriented 3. The patient's currently on 2 L nasal cannula. No obvious respiratory distress, use of accessory muscles, or conversational dyspnea. HEENT examination is grossly unremarkable. Neck supple. Full range of motion. No adenopathy thyromegaly or neck vein distention. Cardiovascular examination reveals regular rhythm rate. S1-S2 normal. No S3 or S4. No discernible murmur noted. Heart rate 54 bpm. Occasional extrasystoles. Heart sounds are distant. Lungs reveal bilateral crackles. Scattered rhonchi are noted. No wheezes. Breath sounds are equal bilaterally. Abdomen soft bowel sounds are heard. No masses or tenderness. Extremities are intact. No cyanosis or clubbing. Mild to moderate lower extremity edema is noted. Skin is without rash or lesion. Neurologic examination is brief but nonfocal. Results - Laboratory Findings CBC and BMP: 11/10/21 18:57 11/10/21 18:57 PT/INR, D-dimer PT 10.5 sec (9.0-12.0) 11/10/21 18:57 INR 1.0 (<1.2) 11/10/21 18:57 Abnormal lab findings: Abnormal Labs 11/10/21 11/10/21 18:57 18:57 APTT 21.4 L Chloride 110 H Carbon Dioxide 21 L Albumin 3.3 L - Diagnostic Findings Chest x-ray: image reviewed Assessment and Plan Assessment: Acute symptomatic bradycardia/slow atrial fibrillation. Congestive heart failure. History of hypertension. History of gastroesophageal reflux disease. History of glaucoma. History of hiatal hernia. History of osteoarthritis. History of cellulitis. Plan: Plan dated 11/11/2021. The patient will be admitted to the intensive care unit for further monitoring and management. She may require a pacemaker. Additional recommendations and suggestions are forthcoming. We will continue to follow make recommendations where appropriate. The patient is currently on dopamine at 5 mcg/kg/m. Respiratory status is reasonably stable. He is on 2 L nasal cannula. Chest x- rays consistent with mild fluid overload. Cardiology has been consulted. Time with Patient: Greater than 30
--- NOTE | 2021-11-11 10:58 | P.HPIM ---
History of Present Illness H&P Date: 11/11/21 Chief Complaint: Near-syncope, heart block History of present illness: This is a pleasant 86-year-old patient who follows with Dr. Garvey however he carr s not seen her in multiple years due to relocation to [place]. Patient has returned to [place] within the year. However he has she has not been seen at the office. Patient's past medical history includes A. fib, eye disorder, GERD, hypertension, dementia, and hiatal hernia was brought into the emergency room from her extended care facility for evaluation of bradycardia. Patient stated that she did not feel good all day. She was recently seen in the emergency room at [facility] due to decreased blood pressure. At that time all of her blood pressure medications were changed and they have been on hold since the middle of October. Patient states that she did feel some palpitation previous to feeling like she was going to pass out. Patient denied any passing out. At this time patient is alert and able to answer questions appropriately. She denies any chest pain. Is complaining of some difficulty breathing and wheezing. She is also complaining of bilateral edema to the lower extremities. Patient is not on any current anticoagulants. Review Of Systems: Constitutional: No fever, no chills, no night sweats. No weight change. Reports weakness and fatigue, no lethargy. No daytime sleepiness. EENT: No headache. No blurred vision or double vision, no loss of vision. No loss of Hearing, no ringing in the ears, no dizziness. No nasal drainage or congestion. No epistaxis. No sore throat. Lungs: Reports shortness of breath, + cough, no sputum production. Reports wheezing. Cardiovascular: No chest pain, Reports lower extremity edema. No palpitations. No paroxysmal nocturnal dyspnea. Reports orthopnea. Reports lightheadedness and dizziness. Reports near-syncope episodes. Abdominal: no abdominal discomfort. No nausea, vomiting. no diarrhea. No constipation. No bloody or tarry stools. no loss of appetite. Genitourinary: No dysuria, increased frequency, urgency. No urinary retention. Musculoskeletal: No myalgias. No muscle weakness, no gait dysfunction, no frequent falls. No back pain. No neck pain. Integumentary: No wounds, no lesions. No rash or pruritus. No unusual bruising. No change in hair or nails. Neurologic: No aphasia. No facial droop. No change in mentation. No head injury. No headache. No paralysis. No paresthesia. Psychiatric: No depression. No anxiety. No mood swings. Endocrine: No abnormal blood sugars. No weight change. No excessive sweating or thirst. Social history: Patient is a lifelong nonsmoker, denies any EtOH or illicit drug use. She currently lives and [facility] facility. Uses a walker, no CPAP or BiPAP machine. Family history: No children not , she is 1 of 5 however herself and all of her siblings were adopted and did have some mental handicaps. Is under the care of her guardian. Physical examination General Appearance: Alert, cooperative, no distress, appears stated age. Neck HEENT: Supple, no lymphadenopathy, no thyroid enlargement, no carotid bruits. Lungs: + wheezes and diminshed Chest Wall: Chest wall normal expansion with deep inspiration no tenderness and no deformity was found on exam, no costochondral pain or discomfort. Heart:Bradycardia and irregular, no murmur, rub or gallop. Back: Symmetric, no curvature, ROM normal, no CVA tenderness. Abdomen: Soft, non-tender, no rebound or rigidity, no hepatosplenomegaly. Extremities: Extremities normal, atraumatic, no cyanosis, 3+ pedal edema. Pulses: 2+ and symmetric. Skin: Skin color, texture, tugor normal, no rashes or lesions. Neurologic: Alert oriented x3 cranial nerves II through XII intact, no motor deficit, no abnormal balance or gait Assessment and plan: 1. Symptomatic heart block. Admit to ICU, dopamine 5 mcg/kg/min. Consult cardiology. Consult pulmonology. Nothing by mouth at this time. 2. Near-syncope. As noted above 3. Atrial fibrillation. Echocardiogram ordered, not currently on anticoagulant. 4. Congestive heart failure. Consult cardiology, awaiting decision for possible permanent pacemaker. 5. Hypertension. Lopressor, Lorcet when necessary hydrochlorothiazide, Norvasc hold at this time 6. Eye disorder. Continue eyedrops 7. GERD. Protonix 40 mg IV 8. Osteoarthritis. Stable 9. Dementia. Stable 10. GI prophylaxis. Protonix 40 mg IV 11. DVT prophylaxis. Pneumatic compression sleeves CODE STATUS: No code Patient be admitted for a minimum 2 nights day Discharge plan: To be determined Impression and plan of care have been directed as dictated by the signing physician. Codie Odom nurse practitioner acting as scribe for signing physician. Past Medical History Past Medical History: Eye Disorder, GERD/Reflux, Hypertension, Osteoarthritis (OA) Additional Past Medical History / Comment(s): cellulitis and glaucoma. Hiatal hernia History of Any Multi-Drug Resistant Organisms: None Reported Past Surgical History: Appendectomy, Tonsillectomy Past Anesthesia/Blood Transfusion Reactions: No Reported Reaction Past Psychological History: No Psychological Hx Reported Smoking Status: Never smoker Past Alcohol Use History: Occasional Past Drug Use History: None Reported - Past Family History Father Family Medical History: Unable to Obtain Mother Family Medical History: Unable to Obtain Medications and Allergies Home Medications Medication Instructions Recorded Confirmed Type Omeprazole [PriLOSEC] 20 mg PO HS@209911/10/18 11/10/21 History Timolol Maleate [timoloL maleate 1 drop BOTH EYES BID@00,209911/10/18 11/10/21 History 0.5% Ophth Gel] Acetaminophen [Tylenol] 650 mg PO Q4H PRN 11/10/21 11/10/21 History Ferrous Sulfate [Iron (65 MG 325 mg PO BID@00,209911/10/21 11/10/21 History Elemental)] Latanoprost/Pf [Latanoprost 0.005% 1 drop BOTH EYES HS@199911/10/21 11/10/21 History Eye Drop] Loperamide HCl [Imodium A-D] 2 mg PO Q1H PRN 11/10/21 11/10/21 History Losartan/Hydrochlorothiazide 1 tab PO DIRECTED 11/10/21 11/10/21 History [Losartan-Hctz 100-25 mg Tab] Magnesium Hydroxide [Milk of 7,200 mg PO DAILY PRN 11/10/21 11/10/21 History Magnesia Concentrate] Metoprolol Tartrate [Lopressor] 50 mg PO DIRECTED 11/10/21 11/10/21 History Ocular Vitamin Tablet 1 tab PO DAILY@69911/10/21 11/10/21 History amLODIPine [Norvasc] 10 mg PO DAILY@00 11/10/21 11/10/21 History Allergies Allergy/AdvReac Type Severity Reaction Status Date / Time No Known Allergies Allergy Verified 11/10/21 19:21 Physical Exam Vitals: Vital Signs Temp Pulse Pulse Resp BP BP Pulse Ox 11/11/21 10:00 98.8 F 108 H 17 122/94 98 11/11/21 09:50 90 16 131/95 11/11/21 09:40 98.0 F 60 20 128/105 97 11/11/21 07:07 60 18 136/51 92 L 11/11/21 05:19 51 L 18 157/49 96 11/11/21 04:00 53 L 18 171/84 96 11/11/21 03:00 58 L 18 155/55 96 11/11/21 02:18 47 L 18 169/58 94 L 11/11/21 00:13 48 L 18 165/52 93 L 11/10/21 22:30 43 L 18 138/51 94 L 11/10/21 20:46 56 L 18 136/89 93 L 11/10/21 19:46 55 L 18 146/83 93 L 11/10/21 18:48 42 L 11/10/21 18:40 98.6 F 41 L 18 78/66 95 Intake and Output 11/10/21 11/11/21 11/11/21 22:59 06:59 14:59 Other: Weight 69.853 kg Results CBC & Chem 7: 11/10/21 18:57 11/10/21 18:57 Labs: Abnormal Lab Results - Last 24 Hours (Table) 11/10/21 11/10/21 Range/Units 18:57 18:57 APTT 21.4 L (22.0-30.0) sec Chloride 110 H (98-107) mmol/L Carbon Dioxide 21 L (22-30) mmol/L Albumin 3.3 L (3.5-5.0) g/dL
--- NOTE | 2021-11-11 13:06 | P.CRDCN ---
History of Present Illness History of present illness: HISTORY OF PRESENTING ILLNESS Patient is a pleasant 86-year-old female with history of debility currently wheelchair bound, hypertension, hiatal hernia, reported dementia however recalls much of her medical history who presents secondary to episodes of lightheadedness. Patient states that she has been having off-and-on lightheadedness over the last 3-4 months. She is bedbound and does not walk however this occurs while seated. She recently was decreased on her antihypertensive medications approximately one week ago by the [facility] doctor unfortunately she felt much worse over the last 2 days feeling lightheaded and nauseous and feeling like she is going to pass out. She came to emergency department was found to have intermittent PVCs, occasional episodes with what appeared to be A. fib without obvious P waves however very short in duration as well as some PACs which appear to be nonconducted with heart rate mainly in the 30s to 50s. Therefore she was placed on dopamine and her home metoprolol as well as losartan and hydrochlorothiazide have been held. She is seen in ICU and has been fairly stable with heart rates mostly in the 40s to 50s. Intermittently she has normally conducted sinus bradycardia with heart rates in the 50s however occasionally what appears to be PACs versus higher degree block. She denies any history of atrial fibrillation. She follows with Dr Hanna. Blood work shows white blood cell count 8.4, hemoglobin 12.6, sodium 139, creatinine 0.9, troponin 0.012, proBNP 3720. TSH is pending. REVIEW OF SYSTEMS At the time of my exam: CONSTITUTIONAL: Denies fever or chills. CARDIOVASCULAR: Denies chest pain, +chronic shortness of breath attributed to hiatal hernia, stable per patient, no orthopnea, PND or palpitations. RESPIRATORY: Denies cough. GASTROINTESTINAL: Denies abdominal pain, diarrhea, constipation, nausea or vomiting. MUSCULOSKELETAL: Denies myalgias. NEUROLOGIC: Denies numbness, tingling or weakness. ENDOCRINE: Denies fatigue, weight change, polydipsia or polyurina. GENITOURINARY: Denies burning, hematuria or urgency with micturation. HEMATOLOGIC: Denies history of anemia or bleeding. PHYSICAL EXAMINATION Vital signs reviewed. CONSTITUTIONAL: No apparent distress HEENT: Head is normocephalic. Pupils are equal, round. Sclerae anicteric. Mucous membranes of the mouth are moist. No JVD. No carotid bruit. CHEST EXAMINATION: Lungs are clear to auscultation. No chest wall tenderness is noted on palpation or with deep breathing. HEART EXAMINATION: Bradycardic with intermittent irregularity. S1, S2 heard. No murmurs, gallops or rub. ABDOMEN: Soft, nontender. Positive bowel sounds. EXTREMITIES: 2+ peripheral pulses, no lower extremity edema and no calf tenderness. NEUROLOGIC EXAMINATION: Patient is awake, alert and oriented x3. ASSESSMENT 1. Symptomatic bradycardia with high degree AV block, may be exacerbated by beta ilana 2. History of hypertension, borderline 3. Lightheadedness, near syncope 4. Reported history of heart failure, appears euvolemic 5. Chronic dyspnea on exertion, attributed to hiatal hernia in the past 6. Short episodes of what appears to be A. fib with no P waves noted 7. Hiatal hernia PLAN Patient is to have new high degree AV block. This may be exacerbated by beta ilana however if no improvement after holding beta ilana she will likely need a permanent pacemaker. Continue dopamine drip for now patient currently appears stable and currently no indication for TVP. Appears to have intermittent episodes of short A. fib with no P waves noted however this has not been prolonged and hold any anticoagulation for now. Check 2-D echo. If patient still having higher degree AV block despite holding beta ilana for 48 hours, will likely need permanent pacemaker. Past Medical History Past Medical History: Eye Disorder, GERD/Reflux, Hypertension, Osteoarthritis (OA) Additional Past Medical History / Comment(s): cellulitis and glaucoma. Hiatal hernia History of Any Multi-Drug Resistant Organisms: None Reported Past Surgical History: Appendectomy, Tonsillectomy Additional Past Surgical History / Comment(s): Left Hip Replacement Past Anesthesia/Blood Transfusion Reactions: No Reported Reaction Past Psychological History: No Psychological Hx Reported Smoking Status: Never smoker Past Alcohol Use History: Occasional Past Drug Use History: None Reported - Past Family History Father Family Medical History: Unable to Obtain Mother Family Medical History: Unable to Obtain Medications and Allergies Home Medications Medication Instructions Recorded Confirmed Type Omeprazole [PriLOSEC] 20 mg PO HS@209911/10/18 11/10/21 History Timolol Maleate [timoloL maleate 1 drop BOTH EYES BID@0700,2100 11/10/18 11/10/21 History 0.5% Ophth Gel] Acetaminophen [Tylenol] 650 mg PO Q4H PRN 11/10/21 11/10/21 History Ferrous Sulfate [Iron (65 MG 325 mg PO BID@0700,2100 11/10/21 11/10/21 History Elemental)] Latanoprost/Pf [Latanoprost 0.005% 1 drop BOTH EYES HS@199911/10/21 11/10/21 History Eye Drop] Loperamide HCl [Imodium A-D] 2 mg PO Q1H PRN 11/10/21 11/10/21 History Losartan/Hydrochlorothiazide 1 tab PO DIRECTED 11/10/21 11/10/21 History [Losartan-Hctz 100-25 mg Tab] Magnesium Hydroxide [Milk of 7,200 mg PO DAILY PRN 11/10/21 11/10/21 History Magnesia Concentrate] Metoprolol Tartrate [Lopressor] 50 mg PO DIRECTED 11/10/21 11/10/21 History Ocular Vitamin Tablet 1 tab PO DAILY@0711/10/21 11/10/21 History amLODIPine [Norvasc] 10 mg PO DAILY@0711/10/21 11/10/21 History Allergies Allergy/AdvReac Type Severity Reaction Status Date / Time No Known Allergies Allergy Verified 11/10/21 19:21 Physical Exam Vitals: Vital Signs Temp Pulse Pulse Resp BP BP Pulse Ox 11/11/21 12:00 97.9 F 51 L 59 L 21 100/54 95 11/11/21 11:00 52 L 16 102/75 95 11/11/21 10:00 98.8 F 108 H 17 122/94 98 11/11/21 09:50 90 16 131/95 11/11/21 09:40 98.0 F 60 20 128/105 97 11/11/21 08:00 56 L 17 98 11/11/21 07:07 60 18 136/51 92 L 11/11/21 05:19 51 L 18 157/49 96 11/11/21 04:00 53 L 18 171/84 96 11/11/21 03:00 58 L 18 155/55 96 11/11/21 02:18 47 L 18 169/58 94 L 11/11/21 00:13 48 L 18 165/52 93 L 11/11/21 00:02 98.8 F 45 L 20 122/94 96 11/10/21 22:30 43 L 18 138/51 94 L 11/10/21 20:46 56 L 18 136/89 93 L 11/10/21 19:46 55 L 18 146/83 93 L 11/10/21 18:48 42 L 11/10/21 18:40 98.6 F 41 L 18 78/66 95 Intake and Output 11/10/21 11/11/21 11/11/21 22:59 06:59 14:59 Intake Total 40 Output Total 200 Balance -160 Intake: IV 40 Sodium Chloride 0.9% 500 40 ml 500 ml @ 999 mls/hr IV .Q31M STA Rx#:[id number] Output: Urine 200 Other: Voiding Method Indwelling Catheter Weight 69.853 kg 68.18 kg 68.18 kg Results 11/10/21 18:57 11/10/21 18:57 Cardiac Enzymes 11/10/21 11/10/21 Range/Units 18:57 18:57 AST 23 (14-36) U/L Troponin I <0.012 (0.000-0.034) ng/mL Coagulation 11/10/21 Range/Units 18:57 PT 10.5 (9.0-12.0) sec APTT 21.4 L (22.0-30.0) sec CBC 11/10/21 Range/Units 18:57 WBC 8.4 (3.8-10.6) k/uL RBC 4.09 (3.80-5.40) m/uL Hgb 12.6 (11.4-16.0) gm/dL Hct 39.0 (34.0-46.0) % Plt Count 368 (150-450) k/uL Comprehensive Metabolic Panel 11/10/21 Range/Units 18:57 Sodium 139 (137-145) mmol/L Potassium 4.2 (3.5-5.1) mmol/L Chloride 110 H (98-107) mmol/L Carbon Dioxide 21 L (22-30) mmol/L BUN 16 (7-17) mg/dL Creatinine 0.93 (0.52-1.04) mg/dL Glucose 94 (74-99) mg/dL Calcium 8.7 (8.4-10.2) mg/dL AST 23 (14-36) U/L ALT 11 (4-34) U/L Alkaline Phosphatase 81 (38-126) U/L Total Protein 6.5 (6.3-8.2) g/dL Albumin 3.3 L (3.5-5.0) g/dL Current Medications Generic Name Dose Route Start Last Admin Trade Name Freq PRN Reason Stop Dose Admin Dopamine HCl/Dextrose 800 mg/ 250 mls @ 6.549 mls/hr 11/10/21 20:20 11/10/21 20:47 IV Solution IV 11/11/21 20:19 5 mcg/kg/min .Q24H ONE 6.549 mls/hr Administration Protocol 5 MCG/KG/MIN Latanoprost 1 drops 11/11/21 20:00 Latanoprost 0.005% Ophth Drops 2.5 Ml Btl BOTH EYES HS@2000 RED Loperamide HCl 2 mg 11/11/21 09:29 Loperamide 2 Mg Cap PO Q1H PRN Loose Stool Naloxone HCl 0.2 mg 11/10/21 23:18 Naloxone 0.4 Mg/Ml 1 Ml Vial IV Q2M PRN Opioid Reversal Pantoprazole Sodium 40 mg 11/12/21 09:00 Pantoprazole 40 Mg/10 Ml Vial IVP DAILY RED Intake and Output 11/10/21 11/11/21 11/11/21 22:59 06:59 14:59 Intake Total 40 Output Total 200 Balance -160 Intake: IV 40 Sodium Chloride 0.9% 500 40 ml 500 ml @ 999 mls/hr IV .Q31M STA Rx#:[id number] Output: Urine 200 Other: Voiding Method Indwelling Catheter Weight 69.853 kg 68.18 kg 68.18 kg Patient Weight 11/12/21 06:59 Weight 68.18 kg 11/10/21 18:57 11/10/21 18:57
[2021-11-11] MEDS ORDERED: SODIUM CHLORIDE 0.9% 500 ML 250 ML IV ONE (16:30)
[2021-11-11] MEDS: SODIUM CHLORIDE 0.9% 1,000 ML IV SCH (18:19)
[2021-11-11] MEDS: LATANOPROST 0.005% OPHTH DROPS 2.5 ML BTL BOTH EYES SCH (20:35)
[2021-11-12] MEDS: SODIUM CHLORIDE 0.9% 1,000 ML IV SCH ×2 (04:11→17:33)
[2021-11-12] MEDS ORDERED: DOPamine DRIP 800 MG in DEXTROSE/WATER 1 250ML.BAG IV ONE (04:30)
[2021-11-12] MEDS ORDERED: HYDROmorphone 0.5 MG/0.5 ML SYRINGE IVP PRN (08:06)
[2021-11-12] MEDS ORDERED: FUROSEMIDE 10 MG/ML 4 ML VIAL IV STA (08:14)
[2021-11-12] MEDS: PANTOPRAZOLE 40 MG/10 ML VIAL IVP SCH (08:29)
--- NOTE | 2021-11-12 08:30 | XR ---
EXAMINATION TYPE: XR chest 1V portable DATE OF EXAM: 11/12/2021 CLINICAL HISTORY: Difficulty breathing progress study. TECHNIQUE: Single AP portable upright view of the chest is obtained. COMPARISON: Chest x-ray from 2 days earlier and chest CT September 21, 2019 FINDINGS: Background chronic emphysematous and pulmonary fibrotic change redemonstrated with left mi d to basilar opacity corresponding to known large hiatal hernia. Increased interstitial markings bila terally along with stable mild cardiomegaly and atherosclerotic thoracic aorta. Osseous structures re main demineralized. IMPRESSION: Suspect persistent CHF exacerbation as there is cardiomegaly with mild to moderate bilate ral interstitial edema felt to be redemonstrated on background chronic emphysematous change and large hiatal hernia. No significant change from most recent x-ray.
[2021-11-12 08:42] LABS: HCT 36.3 % (34.0-46.0); HGB 11.2 gm/dL (11.4-16.0); Hypochromasia Moderate; MCH 30.3 pg (25.0-35.0); MCHC 30.9 g/dL (31.0-37.0); MCV 98.1 fL (80.0-100.0); Mean Platelet Volume 7.7; Platelet Count 383 k/uL (150-450); RBC 3.71 m/uL (3.80-5.40); RDW 13.1 % (11.5-15.5)
[2021-11-12 08:51] LABS: Calcium 8.3 mg/dL (8.4-10.2); Potassium 4.1 mmol/L (3.5-5.1)
--- NOTE | 2021-11-12 09:20 | P.PN ---
Subjective Progress Note Date: 11/12/21 Principal diagnosis: Bradycardia and weakness. Pulmonary consult dated 11/11/2021. 86-year-old female, who came into the emergency department on November 10. She was [facility] in [facility] the [facility], with a very slow heart rate. The patient hasn't been feeling well for the last week or so. She describes shortness of breath, swelling of her feet, cough, occasional phlegm production, and weakness. The patient was found have a cardiac, and was started on dopamine at 5 mcg/kg /m. She was also given O2 at 2 L. She has a history of gastroesophageal reflux disease, hypertension, osteoarthritis, cellulitis, glaucoma, and hiatal hernia. White count 8.4, hemoglobin 12.6, hematocrit 39, and platelet count 360,000. PTT was 21.4. Sodium 139, potassium 4.2, chlorides 110, CO2 21, anion gap 8, BUN 16, creatinine 0.93. Troponin was normal. N-terminal proBNP was 3720. Albumin was 3.3. Chest x-ray was consistent with fluid overload/CHF. Progress note dated 11/12/2021. 86-year-old female, seen yesterday in the emergency department. She initially presented to the ER on November 10. She was brought in from the [facility] with a very slow heart rate. The patient is currently in the intensive care unit. She is a DO NOT RESUSCITATE patient. She's on 2 L nasal O2. She's getting saline at 80 mL an hour. She is on dopamine at 5 mcg/kg/m. Her blood pressure is a bit soft. She may be a candidate for a pacemaker. Cardiology is contemplating that currently. White count 13, hemoglobin 11.2, hematocrit 36.3, and platelet count 383,000. Sodium 142, potassium 4.1, chlorides 113, CO2 15, anion gap 14, BUN 26, with a creatinine of 1.63. BUN and creatinine yesterday were 16 and 0.93. Chest x-rays consistent with fluid overload/CHF, with interstitial edema and cardiomegaly. Objective - Vital Signs Vital signs: Vital Signs Temp 98.0 F 11/12/21 08:00 Pulse 57 L 11/12/21 08:00 Resp 23 11/12/21 08:00 BP 106/48 11/12/21 08:00 Pulse Ox 96 11/12/21 08:00 Intake & Output 11/11/21 11/12/21 11/12/21 18:59 06:59 18:59 Intake Total 230 960 160 Output Total 210 60 20 Balance 20 900 140 Weight 68.18 kg 76.3 kg Intake: IV 230 960 160 Sodium Chloride 0.9% 1, 140 960 160 000 ml @ 80 mls/hr IV . [id number] RED Rx#:[id number] Sodium Chloride 0.9% 500 90 ml 500 ml @ 999 mls/hr IV .Q31M STA Rx#:[id number] Output: Urine 210 60 20 Other: Voiding Method Indwelling Catheter Indwelling Catheter Indwelling Catheter - Exam No acute distress, oriented 3. The patient's currently on 2 L nasal cannula. No obvious respiratory distress, use of accessory muscles, or conversational dyspnea. HEENT examination is grossly unremarkable. Neck supple. Full range of motion. No adenopathy thyromegaly or neck vein distention. Cardiovascular examination reveals regular rhythm rate. S1-S2 normal. No S3 or S4. No discernible murmur noted. Heart rate 57 bpm. Occasional extrasystoles. Heart sounds are distant. Lungs reveal bilateral crackles. Scattered rhonchi are noted. No wheezes. Breath sounds are equal bilaterally. Abdomen soft bowel sounds are heard. No masses or tenderness. Extremities are intact. No cyanosis or clubbing. Mild to moderate lower extremity edema is noted. Skin is without rash or lesion. Neurologic examination is brief but nonfocal. - Labs CBC & Chem 7: 11/12/21 08:27 11/12/21 08:27 Labs: Abnormal Lab Results - Last 24 Hours (Table) 11/12/21 11/12/21 Range/Units 08:27 08:27 WBC 13.0 H (3.8-10.6) k/uL RBC 3.71 L (3.80-5.40) m/uL Hgb 11.2 L (11.4-16.0) gm/dL MCHC 30.9 L (31.0-37.0) g/dL Chloride 113 H (98-107) mmol/L Carbon Dioxide 15 L (22-30) mmol/L BUN 26 H (7-17) mg/dL Creatinine 1.63 H (0.52-1.04) mg/dL Calcium 8.3 L (8.4-10.2) mg/dL Assessment and Plan Assessment: Acute symptomatic bradycardia/slow atrial fibrillation. Congestive heart failure. Developing acute kidney injury with anion gap metabolic acidosis. History of hypertension. History of gastroesophageal reflux disease. History of glaucoma. History of hiatal hernia. History of osteoarthritis. History of cellulitis. Plan: Plan dated 11/11/2021. The patient will be admitted to the intensive care unit for further monitoring and management. She may require a pacemaker. Additional recommendations and suggestions are forthcoming. We will continue to follow make recommendations where appropriate. The patient is currently on dopamine at 5 mcg/kg/m. Respiratory status is reasonably stable. He is on 2 L nasal cannula. Chest x- rays consistent with mild fluid overload. Cardiology has been consulted. Plan dated 11/12/2021. The patient was admitted to the intensive care unit for further monitoring and management. She may require pacemaker. We will leave that up to cardiology. She remains on dopamine at 5 mcg/kg/m. Respiratory status is reasonable. She's on 2 L. She's really not complaining of any shortness of breath. Chest x-ray does show evidence of fluid overload/vascular decompensation. The patient is developing worsening renal insufficiency and urine output has been significantly compromised. Nephrology should be consult if not or ready. Prognosis is guarded. The patient is a DO NOT RESUSCITATE. Time with Patient: Greater than 30
[2021-11-12] MEDS ORDERED: SODIUM BICARB 8.4% 50 ML SYR (1 MEQ/ML) IV STA (10:29)
--- NOTE | 2021-11-12 10:31 | P.NPCON ---
History of Present Illness - Reason for Consult acute renal failure - History of Present Illness Reason for consultation: Acute kidney injury History of present illness: Patient is a 86-year-old female seen in consultation for acute kidney injury. Patient's baseline creatinine is near 1 and is up to 1.63 today. Patient presented to the hospital on 11/10/2021 due to generalized weakness and shortness of breath. She also complains of intermittent lightheadedness over the last 3-4 months. Patient was found to have intermittent PVCs and heart rate in the 30s to 50s. She was on metoprolol which is now held. Cardiology is following. Pacemaker is being considered. She is on IV dopamine. Due to low urine output IV fluids were started last night and she also receive 250 mL bolus of normal saline. There is no improvement in urine output. This morning she received a dose of IV Lasix 40 mg once. Urine output seems to be improving. Patient is on 2 L nasal cannula. Heart rate is in the 40s. Patient denies use of nonsteroidals. Denies prior history of kidney disease. No history of diabet es. Vital signs - bradycardic. On dopamine. General: On nasal cannula. HEENT: Head exam is unremarkable. LUNGS: Breath sounds decreased. HEART: Bradycardic. ABDOMEN: Soft, no distention. EXTREMITITES: 1+ edema. Past Medical History Past Medical History: Eye Disorder, GERD/Reflux, Hypertension, Osteoarthritis (OA) Additional Past Medical History / Comment(s): cellulitis and glaucoma. Hiatal hernia History of Any Multi-Drug Resistant Organisms: None Reported Past Surgical History: Appendectomy, Tonsillectomy Additional Past Surgical History / Comment(s): Left Hip Replacement Past Anesthesia/Blood Transfusion Reactions: No Reported Reaction Past Psychological History: No Psychological Hx Reported Smoking Status: Never smoker Past Alcohol Use History: Occasional Past Drug Use History: None Reported - Past Family History Father Family Medical History: Unable to Obtain Mother Family Medical History: Unable to Obtain Medications and Allergies Home Medications Medication Instructions Recorded Confirmed Type Omeprazole [PriLOSEC] 20 mg PO HS@209911/10/18 11/10/21 History Timolol Maleate [timoloL maleate 1 drop BOTH EYES BID@0700,2100 11/10/18 11/10/21 History 0.5% Ophth Gel] Acetaminophen [Tylenol] 650 mg PO Q4H PRN 11/10/21 11/10/21 History Ferrous Sulfate [Iron (65 MG 325 mg PO BID@0700,2100 11/10/21 11/10/21 History Elemental)] Latanoprost/Pf [Latanoprost 0.005% 1 drop BOTH EYES HS@199911/10/21 11/10/21 History Eye Drop] Loperamide HCl [Imodium A-D] 2 mg PO Q1H PRN 11/10/21 11/10/21 History Losartan/Hydrochlorothiazide 1 tab PO DIRECTED 11/10/21 11/10/21 History [Losartan-Hctz 100-25 mg Tab] Magnesium Hydroxide [Milk of 7,200 mg PO DAILY PRN 11/10/21 11/10/21 History Magnesia Concentrate] Metoprolol Tartrate [Lopressor] 50 mg PO DIRECTED 11/10/21 11/10/21 History Ocular Vitamin Tablet 1 tab PO DAILY@0711/10/21 11/10/21 History amLODIPine [Norvasc] 10 mg PO DAILY@0711/10/21 11/10/21 History Allergies Allergy/AdvReac Type Severity Reaction Status Date / Time No Known Allergies Allergy Verified 11/10/21 19:21 Physical Exam Vitals: Vital Signs Temp Pulse Pulse Resp BP Pulse Ox 11/12/21 10:00 46 L 20 96/60 97 11/12/21 09:00 35 L 26 H 103/54 95 11/12/21 08:00 98.0 F 57 L 23 106/48 96 11/12/21 07:00 47 L 25 H 119/63 97 11/12/21 06:00 51 L 23 96/67 98 11/12/21 05:00 38 L 26 H 106/52 93 L 11/12/21 04:00 98.3 F 40 L 21 100/46 93 L 11/12/21 03:00 37 L 24 98/50 94 L 11/12/21 02:00 43 L 21 96/51 93 L 11/12/21 01:00 59 L 24 88/54 93 L 11/12/21 00:00 98.6 F 43 L 24 93/45 93 L 11/11/21 23:00 37 L 24 102/48 93 L 11/11/21 22:34 40 L 22 97/49 95 11/11/21 22:00 53 L 23 103/47 96 11/11/21 21:00 41 L 23 105/54 94 L 11/11/21 20:00 98.8 F 57 L 23 104/50 95 11/11/21 19:00 41 L 16 95/47 93 L 11/11/21 18:00 49 L 23 101/72 95 11/11/21 17:00 43 L 20 100/58 95 11/11/21 16:00 98.8 F 42 L 44 L 21 93/47 95 11/11/21 15:00 54 L 21 96/59 94 L 11/11/21 14:00 49 L 21 102/40 94 L 11/11/21 13:00 57 L 18 116/82 95 11/11/21 12:00 97.9 F 51 L 59 L 21 100/54 95 11/11/21 11:00 52 L 16 102/75 95 Intake and Output 11/11/21 11/12/21 11/12/21 22:59 06:59 14:59 Intake Total 500 640 320 Output Total 30 40 20 Balance 470 600 300 Intake: IV 500 640 320 Sodium Chloride 0.9% 1, 460 640 320 000 ml @ 80 mls/hr IV . [id number] [facility] Rx#:[id number] Sodium Chloride 0.9% 500 40 ml 500 ml @ 999 mls/hr IV .Q31M STA Rx#:[id number] Output: Urine 30 40 20 Other: Voiding Method Indwelling Catheter Indwelling Catheter Indwelling Catheter Weight 76.3 kg Results - Lab Results Most recent lab results Calcium 8.3 mg/dL (8.4-10.2) L 11/12/21 08:27 Magnesium 1.9 mg/dL (1.6-2.3) 11/10/21 18:57 11/12/21 08:27 11/12/21 08:27 Assessment and Plan Plan: Assessment: 1. Acute kidney injury secondary to ATN secondary to hypotension and hemodynamic instability. Baseline creatinine near 1 and is up to 1.63 today. 2. Symptomatic bradycardia with high degree AV block. Beta ilana held. Cardiology following. On dopamine. 3. Metabolic acidosis secondary to acute kidney injury. 4. Volume overload. Plan: Maintain dopamine. Decrease IV fluids. Add IV Lasix 40 mg twice a day. Continue to monitor renal function and urine output. Add oral bicarb. Check UA and renal ultrasound. Thank you for the consultation. I will continue to follow the patient with you during her hospital stay.
[2021-11-12] MEDS: SODIUM BICARBONATE TAB 650 MG TAB PO SCH ×3 (10:37→22:19)
--- NOTE | 2021-11-12 12:19 | P.PN ---
Subjective Progress Note Date: 11/12/21 History of present illness: This is a pleasant 86-year-old patient who follows with Dr. Garvey however he has not seen her in multiple years due to relocation to [place]. Patient has returned to [place] within the year. However he has she has not been seen at the office. Patient's past medical history includes A. fib, eye disorder, GERD, hypertension, dementia, and hiatal hernia was brought into the emergency room from her extended care facility for evaluation of bradycardia. Patient stated that she did not feel good all day. She was recently seen in the emergency room at [facility] [place] due to decreased blood pressure. At that time all of her blood pressure medications were changed and they have been on hold since the middle of October. Patient states that she did feel some palpitation previous to feeling like she was going to pass out. Patient denied any passing out. At this time patient is alert and able to answer questions appropriately. She denies any chest pain. Is complaining of some difficulty breathing and wheezing. She is also complaining of bilateral edema to the lower extremities. Patient is not on any current anticoagulants. 11/12: Patient remains in ICU on dopamine drip. Heart rate bradycardic in the 30s to 40s. She does have episodes of atrial fibrillation however the ventricular response is still bradycardic. The plan is for the patient to have her beta ilana held for 48 hours and still bradycardic permanent pacemaker planned po ssibly tomorrow. Patient is alert and talkative in no acute distress. Patient remains afebrile, heart rate 38-40, respirations 22, blood pressure 105/86, pulse ox 97% on 2 L nasal cannula.to 13.0, hemoglobin 11.2, potassium 4.1, BUN 26 , creatinine 1.63 Review Of Systems: Constitutional: No fever, no chills, no night sweats. No weight change. Reports weakness and fatigue, no lethargy. No daytime sleepiness. EENT: No headache. No blurred vision or double vision, no loss of vision. No loss of Hearing, no ringing in the ears, no dizziness. No nasal drainage or c ongestion. No epistaxis. No sore throat. Lungs: Reports shortness of breath, + cough, no sputum production. Reports wheezing. Cardiovascular: No chest pain, Reports lower extremity edema. No palpitations. No paroxysmal nocturnal dyspnea. Reports orthopnea. Reports lightheadedness and dizziness. Reports near-syncope episodes. Abdominal: no abdominal discomfort. No nausea, vomiting. no diarrhea. No constipation. No bloody or tarry stools. no loss of appetite. Genitourinary: No dysuria, increased frequency, urgency. No urinary retention. Musculoskeletal: No myalgias. No muscle weakness, no gait dysfunction, no frequent falls. No back pain. No neck pain. Integumentary: No wounds, no lesions. No rash or pruritus. No unusual bruising. No change in hair or nails. Neurologic: No aphasia. No facial droop. No change in mentation. No head injury. No headache. No paralysis. No paresthesia. Psychiatric: No depression. No anxiety. No mood swings. Endocrine: No abnormal blood sugars. No weight change. No excessive sweating or thirst. Social history: Patient is a lifelong nonsmoker, denies any EtOH or illicit drug use. She currently lives and [facility] facility. Uses a walker, no CPAP or BiPAP machine. Family history: No children not , she is 1 of 5 however herself and all of her siblings were adopted and did have some mental handicaps. Is under the care of her guardian. Physical examination General Appearance: Alert, cooperative, mild distress, this is an 86-year-old pleasant female appears stated age. Neck HEENT: Supple, no lymphadenopathy, no thyroid enlargement, no carotid bruits. Lungs: + wheezes and diminshed Chest Wall: Chest wall normal expansion with deep inspiration no tenderness and no deformity was found on exam, no costochondral pain or discomfort. Heart:Bradycardia and irregular, no murmur, rub or gallop. Back: Symmetric, no curvature, ROM normal, no CVA tenderness. Abdomen: Soft, non-tender, no rebound or rigidity, no hepatosplenomegaly. Extremities: Extremities normal, atraumatic, no cyanosis, 3+ pedal edema. Pulses: 2+ and symmetric. Skin: Skin color, texture, tugor normal, no rashes or lesions. Neurologic: Alert oriented x3 cranial nerves II through XII intact, no motor deficit, no abnormal balance or gait Assessment and plan: 1. Symptomatic heart block. Admit to ICU, dopamine 5 mcg/kg/min. Consult cardiology appreciated . Consult pulmonology appreciated . Nothing by mouth at this time. 2. Near-syncope. As noted above 3. Atrial fibrillation. Echocardiogram ordered, not currently on anticoagulant. 4. Congestive heart failure. Consult cardiology, awaiting decision for possible permanent pacemaker. 5. Hypertension. Lopressor, Lorcet when necessary hydrochlorothiazide, Norvasc hold at this time 6. Eye disorder. Continue eyedrops 7. GERD. Protonix 40 mg IV 8. Osteoarthritis. Stable 9. Dementia. Stable 10. GI prophylaxis. Protonix 40 mg IV 11. DVT prophylaxis. Pneumatic compression sleeves CODE STATUS: No code Patient be admitted for a minimum 2 nights day Discharge plan: To be determined Impression and plan of care have been directed as dictated by the signing physician. Codie Odom nurse practitioner acting as scribe for signing physician. Objective - Vital Signs Vital signs: Vital Signs Temp 98.0 F 11/12/21 08:00 Pulse 43 L 11/12/21 11:00 Resp 18 11/12/21 11:00 BP 90/53 11/12/21 11:00 Pulse Ox 94 L 11/12/21 11:00 Intake & Output 11/11/21 11/12/21 11/12/21 18:59 06:59 18:59 Intake Total 230 960 440 Output Total 210 60 70 Balance 20 900 370 Weight 68.18 kg 76.3 kg Intake: IV 230 960 440 Sodium Chloride 0.9% 1, 140 960 440 000 ml @ 40 mls/hr IV . Q24H [facility] Rx#:[id number] Sodium Chloride 0.9% 500 90 ml 500 ml @ 999 mls/hr IV .Q31M [facility] Rx#:[id number] Output: Urine 210 60 70 Other: Voiding Method Indwelling Catheter Indwelling Catheter Indwelling Catheter - Labs CBC & Chem 7: 11/12/21 08:27 11/12/21 08:27 Labs: Abnormal Lab Results - Last 24 Hours (Table) 11/12/21 11/12/21 Range/Units 08:27 08:27 WBC 13.0 H (3.8-10.6) k/uL RBC 3.71 L (3.80-5.40) m/uL Hgb 11.2 L (11.4-16.0) gm/dL MCHC 30.9 L (31.0-37.0) g/dL Chloride 113 H (98-107) mmol/L Carbon Dioxide 15 L (22-30) mmol/L BUN 26 H (7-17) mg/dL Creatinine 1.63 H (0.52-1.04) mg/dL Calcium 8.3 L (8.4-10.2) mg/dL
--- NOTE | 2021-11-12 13:11 | US ---
EXAMINATION TYPE: US kidneys/renal and bladder DATE OF EXAM: 11/12/2021 COMPARISON: NONE CLINICAL HISTORY: mierya. Exam done portable in ICU EXAM MEASUREMENTS: Right Kidney: 8.0 x 4.0 x 4.1 cm Left Kidney: 8.4 x 4.9 x 4.3 cm Right Kidney: No hydronephrosis or masses seen, possible small amount of fluid seen anterior to kidne y Left Kidney: limited visualization due to patient body habitus and position, visualized portions appe ar wnl Bladder: not well visualized, patient has trejo catheter There is no evidence for hydronephrosis at this point in time. No nephrolithiasis is seen. No yessenia s are identified. The urinary bladder is suboptimally evaluated. Trejo catheter decompression is not ed. IMPRESSION: Suboptimal study without hydronephrosis seen bilaterally
--- NOTE | 2021-11-12 14:02 | P.PN ---
Subjective HISTORY OF PRESENTING ILLNESS Patient is a pleasant 86-year-old female with history of debility currently wheelchair bound, hypertension, hiatal hernia, reported dementia however recalls much of her medical history who presents secondary to episodes of lightheadedness. Patient states that she has been having off-and-on lightheadedness over the last 3-4 months. She is bedbound and does not walk however this occurs while seated. She recently was decreased on her antihypertensive medications approximately one week ago by the [facility] doctor unfort unately she felt much worse over the last 2 days feeling lightheaded and nauseous and feeling like she is going to pass out. She came to emergency department was found to have intermittent PVCs, occasional episodes with what appeared to be A. fib without obvious P waves however very short in duration as well as some PACs which appear to be nonconducted with heart rate mainly in the 30s to 50s. Therefore she was placed on dopamine and her home metoprolol as well as losartan and hydrochlorothiazide have been held. She is seen in ICU and has been fairly stable with heart rates mostly in the 40s to 50s. Intermittently she has normally conducted sinus bradycardia with heart rates in the 50s however occasionally what appears to be PACs versus higher degree block. She denies any history of atrial fibrillation. She follows with Dr Hanna. Blood work shows white blood cell count 8.4, hemoglobin 12.6, sodium 139, creatinine 0.9, troponin 0.012, proBNP 3720. TSH is pending. 11/12 Patient seen and examined. Patient continues to have high degree AV block what appears to be third-degree AV block intermittently with frequent PVCs with heart rates mainly in the 40s. She has been continued on dopamine. She did have one episode of feeling lightheaded. She denies any chest pain or pressure. She was noted to have a TIA compared to 2 days ago and secondary decreased urine output initially was given some IV fluids and then given IV Lasix. PHYSICAL EXAMINATION Vital signs reviewed. CONSTITUTIONAL: No apparent distress HEENT: Head is normocephalic. Pupils are equal, round. Sclerae anicteric. Mucous membranes of the mouth are moist. No JVD. No carotid bruit. CHEST EXAMINATION: Lungs are clear to auscultation. No chest wall tenderness is noted on palpation or with deep breathing. HEART EXAMINATION: Bradycardic with intermittent irregularity. S1, S2 heard. No murmurs, gallops or rub. ABDOMEN: Soft, nontender. Positive bowel sounds. EXTREMITIES: 2+ peripheral pulses, no lower extremity edema and no calf tenderness. NEUROLOGIC EXAMINATION: Patient is awake, alert and oriented x3. ASSESSMENT 1. Symptomatic bradycardia with high degree AV block/ 3rd degree AV block despite discontinuation of beta ilaan 2. History of hypertension, borderline 3. Lightheadedness, near syncope 4. Reported history of heart failure, appears euvolemic 5. Chronic dyspnea on exertion, attributed to hiatal hernia in the past 6. Short episodes of what appears to be A. fib with no P waves noted 7. Hiatal hernia 8. TRACIE may be related to hemodynamics, bradycardia PLAN No significant change from yesterday however despite discontinuation of beta ilana and dopamine her heart rate still in the 40s and occasionally into the 30s with high degree AV block, intermittent third degree block and frequent PVCs. Given worsening kidney function concerning for ATN from decreased cardiac output related to bradycardia we will place a TVP. Discussed given she is symptomatic with continuing high degree AV block a permanent pacemaker would be indicated. Discussed risks and benefits and patient is agreeable. Likely TVP today and then permanent pacemaker in the next 24-48 hours. Objective - Vital Signs Vital signs: Vital Signs Temp 98.2 F 11/12/21 12:00 Pulse 43 L 11/12/21 12:00 Resp 22 11/12/21 12:00 BP 105/86 11/12/21 12:00 Pulse Ox 97 11/12/21 12:00 Intake & Output 11/11/21 11/12/21 11/12/21 18:59 06:59 18:59 Intake Total 230 960 440 Output Total 210 60 70 Balance 20 900 370 Weight 68.18 kg 76.3 kg Intake: IV 230 960 440 Sodium Chloride 0.9% 1, 140 960 440 000 ml @ 40 mls/hr IV . Q24H [facility] Rx#:[id number] Sodium Chloride 0.9% 500 90 ml 500 ml @ 999 mls/hr IV .Q31M [facility] Rx#:[id number] Output: Urine 210 60 70 Other: Voiding Method Indwelling Catheter Indwelling Catheter Indwelling Catheter - Labs CBC & Chem 7: 11/12/21 08:27 11/12/21 08:27 Labs: Abnormal Lab Results - Last 24 Hours (Table) 11/12/21 11/12/21 Range/Units 08:27 08:27 WBC 13.0 H (3.8-10.6) k/uL RBC 3.71 L (3.80-5.40) m/uL Hgb 11.2 L (11.4-16.0) gm/dL MCHC 30.9 L (31.0-37.0) g/dL Chloride 113 H (98-107) mmol/L Carbon Dioxide 15 L (22-30) mmol/L BUN 26 H (7-17) mg/dL Creatinine 1.63 H (0.52-1.04) mg/dL Calcium 8.3 L (8.4-10.2) mg/dL
[2021-11-12] MEDS ORDERED: IV FLUID CONTINUATION 1,000 ML IV ONE (16:07)
[2021-11-12] MEDS ORDERED: LIDOCAINE 1% INJ 10MG/ML (20 ML MDV) ONE (16:11)
[2021-11-12] MEDS ORDERED: MIDAZOLAM 2 MG/2 ML VIAL IV ONE (16:16)
[2021-11-12] MEDS ORDERED: fentaNYL (PF) 50 MCG/ML 2 ML AMP IV ONE (16:16)
[2021-11-12] MEDS ORDERED: fentaNYL (PF) 50 MCG/ML 2 ML AMP ONE (16:16)
[2021-11-12] MEDS ORDERED: LIDOCAINE 1% INJ 10MG/ML (20 ML MDV) SQ ONE (16:18)
[2021-11-12] MEDS ORDERED: RX INFO: IV CONTRAST WAS GIVEN 1 EACH MISC MISCELLANE PRN (16:44)
--- NOTE | 2021-11-12 16:44 | P.PCN ---
Description of Procedure: PROCEDURES PERFORMED: Right femoral temporary transvenous pacemaker placement INDICATION: 3rd degree heart block HISTORY: Patient is pleasant 86-year-old female was found to have new onset of third-degree and high degree second-degree AV block type 2 with intermittent lightheadedness. Attempted to hold Bblocker as well as Dopamine drip without any improvement and worsened Cr concerning for cardiorenal syndrome and therefore TVP was recommended. CONSENT:I have discussed the risks, benefits and alternative therapies for the above-mentioned procedure and for both sedation/analgesia as well as necessary blood product administration, if indicated, as they pertain to this patient. The patient has indicated understanding and acceptance of the risks and procedures discussed. PROCEDURE: After the risks, benefits and alternatives of the above mentioned procedure explained in detail with the patient, informed consent was obtained. Patient was taken to the catheterization lab and prepped and draped in usual fashion. 1% lidocaine was used to anesthetize the right femoral area. A 6- Thai sheath was placed in the right femoral vein using modified Seldinger technique. A 6Fr TVP wire was advanced into the RV and pacing thresholds were checked and deemed adequate. The wire and sheath were then sutured in place. The patient tolerated the procedure well. Patient was transported back to the post catheterization holding area in stable condition. Conscious Sedation: Patient was monitored under the direct supervision of vision of myself for conscious sedation using Versed and fentanyl for a total duration of 10 minutes HEMODYNAMICS: FINAL IMPRESSION: 1. S/p TVP placement from a right femoral site PLAN: 1. Continue TVP with likely PPM in 1-2 days.
[2021-11-12 19:06] LABS: Appearance,Urine Cloudy (Clear); Bacteria,Urine Occasional /hpf; Bilirubin,Urine Negative (Negative); Blood,Urine Moderate (Negative); Color,Urine Yellow; Glucose,Urine (UA) Negative (Negative); Hyaline Casts,Urine 82 /lpf (0-2); Ketones,Urine 1+ (Negative); Leukocyte Esterase,Urine Moderate (Negative); Mucus,Urine Rare /hpf; Nitrite,Urine Negative (Negative); Protein,Urine 1+ (Negative); RBC,Urine 117 /hpf (0-5); Specific Gravity,Urine 1.013 (1.001-1.035); Squamous Epithelial Cell,Urine <1 /hpf (0-4); Urobilinogen,Urine <2.0 mg/dL (<2.0); WBC,Urine 15 /hpf (0-5)
[2021-11-12] MEDS: LATANOPROST 0.005% OPHTH DROPS 2.5 ML BTL BOTH EYES SCH (22:19)
[2021-11-12] MEDS: FUROSEMIDE 10 MG/ML 4 ML VIAL IV SCH (22:19)
[2021-11-13 06:05] LABS: HCT 37.2 % (34.0-46.0); HGB 11.8 gm/dL (11.4-16.0); Hypochromasia Slight; MCH 30.6 pg (25.0-35.0); MCHC 31.8 g/dL (31.0-37.0); MCV 96.3 fL (80.0-100.0); Platelet Count 326 k/uL (150-450); RBC 3.86 m/uL (3.80-5.40); RDW 12.7 % (11.5-15.5); WBC 10.7 k/uL (3.8-10.6)
[2021-11-13 06:18] LABS: Calcium 8.2 mg/dL (8.4-10.2); Potassium 3.4 mmol/L (3.5-5.1)
--- NOTE | 2021-11-13 07:31 | P.PN ---
Subjective Progress Note Date: 11/13/21 86-year-old female, who came into the emergency department on November 10. She was brought in from the [facility], with a very slow heart rate. The patient hasn't been feeling well for the last week or so. She describes shortness of breath, swelling of her feet, cough, occasional phlegm production, and weakness. The patient was found have a bradycardia and cardiac block and was started on dopamine at 5 mcg/kg/m. The patient was found to have new onset of third-degree and high degree second-degree AV block type 2 with intermittent lightheadedness. Attempted to hold ilana as well as Dopamine drip without any improvement and worsened Cr concerning for cardiorenal syndrome and therefore TVP was recommended. She was also given O2 at 2 L. She has a history of gastroesophageal reflux disease, hypertension, osteoarthritis, cellulitis, glaucoma, and hiatal hernia. She is a DO NOT RESUSCITATE patient. She's on 2 L nasal O2. This morning, the patient is wide awake and alert. She remains on room air oxygen. The patient is been placed with a rate of 80. Sensitivity was inserted, the patient improved her renal function with creatinine is currently down to 1.2 with a BUN of 24. The patient is still on Lasix 40 mg IV every 12 hours. There is no echocardiogram done yet. Objective - Vital Signs Vital signs: Vital Signs Temp 98.1 F 11/13/21 00:00 Pulse 79 11/13/21 07:00 Resp 23 11/13/21 07:00 BP 117/69 11/13/21 07:00 Pulse Ox 96 11/13/21 07:00 Intake & Output 11/12/21 11/13/21 11/13/21 18:59 06:59 18:59 Intake Total 730 480 40 Output Total 220 2320 100 Balance 510 -1840 -60 Weight 75.2 kg Intake: IV 730 480 40 Sodium Chloride 0.9% 1, 680 480 40 000 ml @ 40 mls/hr IV . Q24H [facility] Rx#:[id number] Output: Urine 220 2320 100 Other: Voiding Method Indwelling Catheter Indwelling Catheter - Exam No acute distress, oriented 3. The patient's currently on 2 L nasal cannula. No obvious respiratory distress, use of accessory muscles, or conversational dyspnea. HEENT examination is grossly unremarkable. Neck supple. Full range of motion. No adenopathy thyromegaly or neck vein distention. Cardiovascular examination reveals regular rhythm rate. S1-S2 normal. No S3 or S4. No discernible murmur noted. Occasional extrasystoles. Heart sounds are distant. Lungs reveal bilateral crackles. Scattered rhonchi are noted. No wheezes. Breath sounds are equal bilaterally. Abdomen soft bowel sounds are heard. No masses or tenderness. Extremities are intact. No cyanosis or clubbing. Mild to moderate lower extremity edema is noted. Skin is without rash or lesion. Neurologic examination is brief but nonfocal. - Labs CBC & Chem 7: 11/13/21 05:21 11/13/21 05:21 Labs: Abnormal Lab Results - Last 24 Hours (Table) 11/12/21 11/12/21 11/12/21 Range/Units 08:27 08:27 16:57 WBC 13.0 H (3.8-10.6) k/uL RBC 3.71 L (3.80-5.40) m/uL Hgb 11.2 L (11.4-16.0) gm/dL MCHC 30.9 L (31.0-37.0) g/dL Potassium (3.5-5.1) mmol/L Chloride 113 H (98-107) mmol/L Carbon Dioxide 15 L (22-30) mmol/L BUN 26 H (7-17) mg/dL Creatinine 1.63 H (0.52-1.04) mg/dL Calcium 8.3 L (8.4-10.2) mg/dL Urine Appearance Cloudy H (Clear) Urine Protein 1+ H (Negative) Urine Ketones 1+ H (Negative) Urine Blood Moderate H (Negative) Ur Leukocyte Esterase Moderate H (Negative) Urine RBC 117 H (0-5) /hpf Urine WBC 15 H (0-5) /hpf Urine Bacteria Occasional H (None) /hpf Hyaline Casts 82 H (0-2) /lpf Urine Mucus Rare H (None) /hpf 11/13/21 11/13/21 Range/Units 05:21 05:21 WBC 10.7 H (3.8-10.6) k/uL RBC (3.80-5.40) m/uL Hgb (11.4-16.0) gm/dL MCHC (31.0-37.0) g/dL Potassium 3.4 L (3.5-5.1) mmol/L Chloride 110 H (98-107) mmol/L Carbon Dioxide (22-30) mmol/L BUN 24 H (7-17) mg/dL Creatinine 1.21 H (0.52-1.04) mg/dL Calcium 8.2 L (8.4-10.2) mg/dL Urine Appearance (Clear) Urine Protein (Negative) Urine Ketones (Negative) Urine Blood (Negative) Ur Leukocyte Esterase (Negative) Urine RBC (0-5) /hpf Urine WBC (0-5) /hpf Urine Bacteria (None) /hpf Hyaline Casts (0-2) /lpf Urine Mucus (None) /hpf Assessment and Plan Plan: 1. Symptomatic bradycardia with high degree AV block/ 3rd degree AV block despite discontinuation of beta ilana, the patient is post transvenous pacemaker insertion. The patient did not respond to discontinuation of beta blockers and dopamine and following that the patient was given a transvenous pacemaker by cardiology. The patient is currently paced at the rate of 80 and the follow-up chest x-ray from today shows a large hiatal hernia on the left. There is no indication for an underlying pneumonia. 2. History of hypertension 3. Lightheadedness, near syncope 4. history of heart failure, appears euvolemic 6. Paroxysmal episodes of Short episodes A. fib 7. Hiatal hernia 8. TRACIE may be related to hemodynamics, bradycardia, and the renal function is improved with insertion of a DVT. The patient's creatinine is down to 1.2. 9 History of hypertension. 10 History of gastroesophageal reflux disease. 11 History of glaucoma. 12 History of hiatal hernia. 13 History of osteoarthritis. 14 History of cellulitis Plan: Check urine cultures Keep the TVP at a rate of 80 Keep the patient off beta blockers and antihypertensive medication. Possible permanent pacemaker insertion today Echocardiogram to assess LV function Continue IV Lasix and the patient continues to have significant amount of edema in lower extremities bilaterally. Chest x-ray showing a large hiatal hernia. No indication for pneumonia.
[2021-11-13] MEDS ORDERED: SODIUM CHLORIDE 0.9% 1,000 ML IV SCH ×2 (07:45)
--- NOTE | 2021-11-13 08:34 | XR ---
EXAMINATION TYPE: XR chest 1V portable DATE OF EXAM: 11/13/2021 COMPARISON: Chest x-ray 11/12/2021 HISTORY: Shortness of breath TECHNIQUE: Single frontal view of the chest is obtained. FINDINGS: Findings are similar prior exam. There is some aeration in the left lower lobe as compared to prior exam. The left hemidiaphragm remains obscured. Heart remains enlarged. Aorta is dense. Inte rstitium is increased. No evident pneumothorax. Transvenous pacemaker is present via lower extremity approach, catheter overlying the right ventricle. No evident pneumothorax. IMPRESSION: There is some slight interval improvement in aeration. Transvenous pacemaker as describe jass.
[2021-11-13] MEDS: SODIUM BICARBONATE TAB 650 MG TAB PO SCH ×3 (09:12→22:22)
[2021-11-13] MEDS: FUROSEMIDE 10 MG/ML 4 ML VIAL IV SCH ×2 (09:13→22:20)
[2021-11-13] MEDS: PANTOPRAZOLE 40 MG/10 ML VIAL IVP SCH (09:13)
[2021-11-13] MEDS: SODIUM CHLORIDE 0.9% 1,000 ML IV SCH ×2 (09:16→09:24)
--- NOTE | 2021-11-13 10:33 | ECHOF ---
Referral Reason:LV function MEASUREMENTS -------- HEIGHT: 154.9 cm WEIGHT: 74.8 kg BP: RVIDd: 1.8 cm (< 3.3) IVSd: 1.0 cm (0.6 - 1.1) LVIDd: 4.1 cm (3.9 - 5.3) LVPWd: 0.9 cm (0.6 - 1.1) IVSs: 1.7 cm LVIDs: 1.6 cm LVPWs: 1.3 cm Ao Diam: 2.8 cm (2.0 - 3.7) AV Cusp: 1.6 cm (1.5 - 2.6) LA Diam: 3.1 cm (2.7 - 3.8) MV EXCURSION: 13.883 mm (> 18.000) MV EF SLOPE: 85 mm/s (70 - 150) EPSS: 0.5 cm MV E Lan: 0.96 m/s MV DecT: 172 ms MV A Lan: 1.35 m/s MV E/A Ratio: 0.71 RAP: 5.00 mmHg RVSP: 33.51 mmHg FINDINGS -------- Paced rhythm. This was a technically adequate study. The left ventricular size is normal. There is mild concentric left ventricular hypertrophy. Overa ll left ventricular systolic function is normal with, an EF between 55 - 60 %. The right ventricle is normal in size. The left atrial size is normal. The right atrial size is normal. The aortic valve is trileaflet and appears structurally normal. There is mild aortic regurgitation. The mitral valve is normal. The mitral valve leaflets are mildly thickened. Mild mitral annular c alcification present. Mild mitral regurgitation is present. The tricuspid valve appears structurally normal. Mild tricuspid regurgitation present. Right vent ricular systolic pressure is normal at < 35 mmHg. There is no pulmonic regurgitation present. The aortic root size is normal. Normal inferior vena cava with normal inspiratory collapse consistent with estimated right atrial pre ssure of 5 mmHg. CONCLUSIONS -------- 1. Paced rhythm. 2. The left ventricular size is normal. 3. There is mild concentric left ventricular hypertrophy. 4. Overall left ventricular systolic function is normal with, an EF between 55 - 60 %. 5. The aortic valve is trileaflet and appears structurally normal. 6. There is mild aortic regurgitation. 7. The mitral valve leaflets are mildly thickened. 8. Mild mitral annular calcification present. 9. Mild mitral regurgitation is present. 10. Mild tricuspid regurgitation present. COUNSEL: Leilani Sanchez RDCS
[2021-11-13] MEDS ORDERED: Potassium Replacement Protocol 1 EACH MISC MISCELLANE PRN (10:56)
[2021-11-13 11:33] VITALS: BMI 32.3
--- NOTE | 2021-11-13 11:43 | PN ---
PROGRESS NOTE Patient is seen for followup for acute kidney injury. Her renal function has improved, with creatinine down to 1.2. Patient is scheduled for pacemaker placement today. She is currently awake, comfortable, not in any acute distress. Patient is maintained on Lasix 40 mg IV q.12 hours. She is also on IV fluids at about 50 mL/hour. On examination today, blood pressure 121/71, heart rate 80 per minute. Patient is afebrile. EXAMINATION OF THE HEART: S1 and S2. EXAMINATION OF LUNGS: Decreased breath sounds at the bases. Abdomen is soft, non-tender. Examination of lower extremities shows edema 1+ bilaterally. [employer] EXAM: Grossly intact. Labs show sodium 141, potassium 3.4, chloride 110, BUN 24, creatinine 1.2, hemoglobin 11.8. ASSESSMENT: 1. Acute kidney injury, acute tubular necrosis, cardiorenal, currently improved. Continue with current dose of IV Lasix. Patient was also hypotensive initially, associated with bradycardia. Her urine output has improved with improved hemodynamics. Patient is scheduled for pacemaker placement. 2. Symptomatic bradycardia with high-degree AV block, maintained on dopamine. Scheduled for pacemaker placement today. 3. Metabolic acidosis associated with acute kidney injury, currently improved. 4. Volume overload. Continue to diurese patient. 5. Pyuria. Rule out urinary tract infection. PLAN: Discontinue IV fluids. Replace potassium. Continue with IV Lasix. I will discontinue the sodium bicarb tomorrow. MMODL / IJN: [id number] /
[2021-11-13] MEDS: POTASSIUM BICARBONATE/CIT AC 20 MEQ TABLET.EFF NG-TUBE SCH ×2 (12:37→12:44)
--- NOTE | 2021-11-13 14:27 | US ---
EXAMINATION TYPE: US venous doppler duplex LE DATE OF EXAM: 11/13/2021 1:42 PM COMPARISON: NONE CLINICAL HISTORY: leg pain swelling. SIDE PERFORMED: Bilateral TECHNIQUE: The lower extremity deep venous system is examined utilizing real time linear array sonog kamlesh with graded compression, doppler sonography and color-flow sonography. VESSELS IMAGED: Common Femoral Vein Deep Femoral Vein Greater Saphenous Vein * Femoral Vein Popliteal Vein Small Saphenous Vein * Proximal Calf Veins (* superficial vessels) Limited study. Patient had recent procedure done in right groin and is on special restrictions to stay elevated and is unable to move either leg. Right CFV images not obtained, Left POPv and Prox yasmin f vein images not obtained Right Leg: Negative for DVT in the veins imaged Left Leg: Negative for DVT in the veins imaged IMPRESSION: Exam is somewhat limited. No evident deep venous thrombosis within the lower extremities to the extent that the deep veins were imaged.
--- NOTE | 2021-11-13 16:58 | P.PN ---
Subjective Progress Note Date: 11/13/21 History of present illness: This is a pleasant 86-year-old patient who follows with Dr. Garvey however he has not seen her in multiple years due to relocation to [place]. Patient has returned to [place] within the year. However he has she has not been seen at the office. Patient's past medical history includes A. fib, eye disorder, GERD, hypertension, dementia, and hiatal hernia was brought into the emergency room from her extended care facility for evaluation of bradycardia. Patient stated that she did not feel good all day. She was recently seen in the emergency room at [facility] due to decreased blood pressure. At that time all of her blood pressure medications were changed and they have been on hold since the middle of October. Patient states that she did feel some palpitation previous to feeling like she was going to pass out. Patient denied any passing out. At this time patient is alert and able to answer questions appropriately. She denies any chest pain. Is complaining of some difficulty breathing and wheezing. She is also complaining of bilateral edema to the lower extremities. Patient is not on any current anticoagulants. 11/12: Patient remains in ICU on dopamine drip. Heart rate bradycardic in the 30s to 40s. She does have episodes of atrial fibrillation however the ventricular response is still bradycardic. The plan is for the patient to have her beta ilana held for 48 hours and still bradycardic permanent pacemaker planned p ossibly tomorrow. Patient is alert and talkative in no acute distress. Patient remains afebrile, heart rate 38-40, respirations 22, blood pressure 105/86, pulse ox 97% on 2 L nasal cannula.to 13.0, hemoglobin 11.2, potassium 4.1, BUN 26 , creatinine 1.63 11/13, patient is seen in ICU, has some conversational dyspnea noted, patient is seen with the daughter at bedside, patient is alert and coherent, nothing by mouth, for the planned procedure for permanent pacemaker today scheduled at 6 PM. He she underwent for temporary transvenous pacemaker performed yesterday by cardiology. On examination, patient has tenderness and swelling the left leg, she is not on any anticoagulation yet, we'll going to do Dopplers of the leg, as these can alter treatment, she has atrial fibrillation as well. Repeat urinalysis, show some pyuria, hematuria, patient's on cefazolin for preprocedure antibiotic protocol, we will start IV Rocephin in the morning await cultures Review Of Systems: Constitutional: No fever, no chills, no night sweats. No weight change. Reports weakness and fatigue, no lethargy. No daytime sleepiness. EENT: No headache. No blurred vision or double vision, no loss of vision. No loss of Hearing, no ringing in the ears, no dizziness. No nasal drainage or congestion. No epistaxis. No sore throat. Lungs: Reports shortness of breath, + cough, no sputum production. Reports wheezing. Cardiovascular: No chest pain, Reports lower extremity edema. No palpitations. No paroxysmal nocturnal dyspnea. Reports orthopnea. Reports lightheadedness and dizziness. Reports near-syncope episodes. Abdominal: no abdominal discomfort. No nausea, vomiting. no diarrhea. No constipation. No bloody or tarry stools. no loss of appetite. Genitourinary: No dysuria, increased frequency, urgency. No urinary retention. Musculoskeletal: No myalgias. No muscle weakness, no gait dysfunction, no frequent falls. No back pain. No neck pain. Integumentary: No wounds, no lesions. No rash or pruritus. No unusual bruising. No change in hair or nails. Neurologic: No aphasia. No facial droop. No change in mentation. No head injury. No headache. No paralysis. No paresthesia. Psychiatric: No depression. No anxiety. No mood swings. Endocrine: No abnormal blood sugars. No weight change. No excessive sweating or thirst. Physical examination General Appearance: Alert, cooperative, mild distress, this is an 86-year-old pleasant female appears stated age. Neck HEENT: Supple, no lymphadenopathy, no thyroid enlargement, no carotid bruits. Lungs: + wheezes and diminshed Chest Wall: Chest wall normal expansion with deep inspiration no tenderness and no deformity was found on exam, no costochondral pain or discomfort. Heart:Bradycardia and irregular, no murmur, rub or gallop. Back: Symmetric, no curvature, ROM normal, no CVA tenderness. Abdomen: Soft, non-tender, no rebound or rigidity, no hepatosplenomegaly. Extremities: Extremities normal, atraumatic, no cyanosis, 3+ pedal edema. Pulses: 2+ and symmetric. Skin: Skin color, texture, tugor normal, no rashes or lesions. Neurologic: Alert oriented x3 cranial nerves II through XII intact, no motor deficit, no abnormal balance or gait Assessment and plan: 1. Symptomatic heart block. Admit to ICU, dopamine 5 mcg/kg/min. Consult cardiology appreciated . Consult pulmonology appreciated . Nothing by mouth at this time. TSH normal scheduled for permanent pacemaker once 11/13/2021, patient received urgent transvenous pacemaker placement on 11/12/2021 2. Near-syncope. As noted above 3. Atrial fibrillation. Echocardiogram ordered, not currently on anticoagulant. 4. Congestive heart failure. Consult cardiology, awaiting decision for e permanent pacemaker scheduled for 11/13/1908/23/2022, status post temporary pacemaker, on 11/12/1907/24/2022. 5. Hypertension. Lopressor, Lorcet when necessary hydrochlorothiazide, Norvasc hold at this time 6. Eye disorder. Continue eyedrops 7. GERD. Protonix 40 mg IV 8. Osteoarthritis. Stable 9. Dementia. Stable 10. GI prophylaxis. Protonix 40 mg IV 11. DVT prophylaxis. Pneumatic compression sleeves 12. Left leg pain and swelling, left leg more than right, obtain bilateral venous Dopplers, evaluate for DVT Acute kidney injury, with CK D stage III 3A Dr. Quintana following CODE STATUS: No code Patient be admitted for a minimum 2 nights day Current Medications Furosemide (Furosemide 10 Mg/Ml 4 Ml Vial) 40 mg IV Q12HR [facility] Last Admin: 11/13/21 09:13 Dose: 40 mg Documented by: Hydromorphone HCl (Hydromorphone 0.5 Mg/0.5 Ml Syringe) 0.5 mg IVP Q4HR PRN PRN Reason: Pain Sodium Chloride (Saline 0.9%) 1,000 mls @ 40 mls/hr IV .Q24H [facility] Last Admin: 11/13/21 09:24 Dose: 40 mls/hr Documented by: Sodium Chloride (Saline 0.9%) 1,000 mls @ 50 mls/hr IV .Q20H [facility] Last Admin: 11/13/21 09:26 Dose: 50 mls/hr Documented by: Sodium Chloride (Saline 0.9%) 1,000 mls @ 50 mls/hr IV .Q20H [facility] Last Admin: 11/13/21 09:26 Dose: Not Given Documented by: Cefazolin Sodium 2 gm/ Sodium (Chloride) 50 mls @ 100 mls/hr IVPB ONCE PRN PRN Reason: Pre-Op Stop: 11/14/21 23:00 Cefazolin Sodium 1 gm/ Sodium (Chloride) 250 mls @ 250 mls/hr IRRIGATION ONCE PRN PRN Reason: PRE-OP Stop: 11/14/21 23:00 Latanoprost (Latanoprost 0.005% Ophth Drops 2.5 Ml Btl) 1 drops BOTH EYES HS@1999 [facility] Last Admin: 11/12/21 22:19 Dose: 1 drops Documented by: Loperamide HCl (Loperamide 2 Mg Cap) 2 mg PO Q1H PRN PRN Reason: Loose Stool Miscellaneous Information (Rx Info: Iv Contrast Was Given 1 Each Misc) 1 each MISCELLANE DAILY PRN PRN Reason: Per Protocol Stop: 11/14/21 16:45 Miscellaneous Information (Potassium Replacement Protocol 1 Each Misc) 1 each MISCELLANE DAILY PRN; Protocol PRN Reason: Per Protocol Naloxone HCl (Naloxone 0.4 Mg/Ml 1 Ml Vial) 0.2 mg IV Q2M PRN PRN Reason: Opioid Reversal Pantoprazole Sodium (Pantoprazole 40 Mg/10 Ml Vial) 40 mg IVP DAILY [facility] Last Admin: 11/13/21 09:13 Dose: 40 mg Documented by: Sodium Bicarbonate (Sodium Bicarbonate Tab 650 Mg Tab) 650 mg PO TID [facility] Last Admin: 11/13/21 09:12 Dose: 650 mg Documented by: Laboratory Results - Last 24 Hours 11/12/21 11/13/21 11/13/21 16:57 05:21 05:21 WBC 10.7 H RBC 3.86 Hgb 11.8 Hct 37.2 MCV 96.3 MCH 30.6 MCHC 31.8 RDW 12.7 Plt Count 326 MPV 8.0 Hypochromasia Slight Sodium 141 Potassium 3.4 L Chloride 110 H Carbon Dioxide 23 Anion Gap 8 BUN 24 H Creatinine 1.21 H Est GFR (CKD-EPI)AfAm 47 Est GFR (CKD-EPI)NonAf 41 Glucose 87 Calcium 8.2 L Urine Color Yellow Urine Appearance Cloudy H Urine pH 5.0 Ur Specific Ambrose 1.013 Urine Protein 1+ H Urine Glucose (UA) Negative Urine Ketones 1+ H Urine Blood Moderate H Urine Nitrite Negative Urine Bilirubin Negative Urine Urobilinogen <2.0 Ur Leukocyte Esterase Moderate H Urine RBC 117 H Urine WBC 15 H Ur Squamous Epith Cells <1 Urine Bacteria Occasional H Hyaline Casts 82 H Urine Mucus Rare H Vital Signs Temp 98.2 F 11/13/21 12:00 Pulse 79 11/13/21 16:00 Resp 34 H 11/13/21 16:00 BP 101/75 11/13/21 16:00 Pulse Ox 95 11/13/21 16:00 Intake & Output 11/12/21 11/13/21 11/13/21 18:59 06:59 18:59 Intake Total 730 480 720 Output Total 220 2320 1215 Balance 510 -2399 -352 Weight 75.2 kg 75.2 kg Intake: IV 730 480 240 Sodium Chloride 0.9% 1, 680 480 240 000 ml @ 40 mls/hr IV . Q24H [facility] Rx#:[id number] Oral 480 Output: Urine 220 2320 1215 Other: Voiding Method Indwelling Catheter Indwelling Catheter Indwelling Catheter Objective - Vital Signs Vital signs: Vital Signs Temp 98.3 F 11/13/21 08:00 Pulse 79 11/13/21 11:00 Resp 24 11/13/21 11:00 BP 116/77 11/13/21 11:00 Pulse Ox 96 11/13/21 11:00 Intake & Output 11/12/21 11/13/21 11/13/21 18:59 06:59 18:59 Intake Total 730 480 240 Output Total 220 2320 715 Balance 510 -8525 -136 Weight 75.2 kg 75.2 kg Intake: IV 730 480 240 Sodium Chloride 0.9% 1, 680 480 240 000 ml @ 40 mls/hr IV . Q24H [facility] Rx#:[id number] Output: Urine 220 2320 715 Other: Voiding Method Indwelling Catheter Indwelling Catheter Indwelling Catheter - Labs CBC & Chem 7: 11/13/21 05:21 11/13/21 05:21 Labs: Abnormal Lab Results - Last 24 Hours (Table) 11/12/21 11/13/21 11/13/21 Range/Units 16:57 05:21 05:21 WBC 10.7 H (3.8-10.6) k/uL Potassium 3.4 L (3.5-5.1) mmol/L Chloride 110 H (98-107) mmol/L BUN 24 H (7-17) mg/dL Creatinine 1.21 H (0.52-1.04) mg/dL Calcium 8.2 L (8.4-10.2) mg/dL Urine Appearance Cloudy H (Clear) Urine Protein 1+ H (Negative) Urine Ketones 1+ H (Negative) Urine Blood Moderate H (Negative) Ur Leukocyte Esterase Moderate H (Negative) Urine RBC 117 H (0-5) /hpf Urine WBC 15 H (0-5) /hpf Urine Bacteria Occasional H (None) /hpf Hyaline Casts 82 H (0-2) /lpf Urine Mucus Rare H (None) /hpf
[2021-11-13] MEDS ORDERED: IV FLUID CONTINUATION 1,000 ML IV ONE (19:27)
[2021-11-13] MEDS ORDERED: VANCOMYCIN 1,250 MG in SODIUM CHLORIDE 0.9% 250 ML IVPB STA (19:34)
[2021-11-13] MEDS ORDERED: IOPAMIDOL-300 50ML BTL INJ ONE (19:41)
[2021-11-13] MEDS ORDERED: ACETAMINOPHEN TAB 325 MG TAB PO PRN (19:42)
[2021-11-13] MEDS ORDERED: ACETAMINOPHEN IV (For NPO) 1,000 MG in EMPTY BAG 1 BAG IVPB ONE (19:42)
[2021-11-13] MEDS ORDERED: LIDOCAINE 1% INJ 10MG/ML (20 ML MDV) ONE (19:42)
[2021-11-13] MEDS ORDERED: LIDOCAINE 1% INJ 10MG/ML (20 ML MDV) SQ ONE (20:04)
[2021-11-13] MEDS ORDERED: MIDAZOLAM 2 MG/2 ML VIAL IV ONE (20:08)
--- NOTE | 2021-11-13 20:49 | P.EPPROC ---
- EP Procedure Note Electrophysiology Procedure Note: Patient underwent EP procedure under conscious sedation/moderate sedation, monitoring of the level of consciousness and physiologic parameters including but not limited to vital signs and oxygenation. Patient tolerated the procedure well without any acute complications. Start time: 8pm Stop time: 8.42pm
--- NOTE | 2021-11-13 20:56 | P.PCN ---
Preoperative Diagnosis: Left upper extremity venogram 50 mL every dye injection the left arm Patent left axillary, left subclavian venous system Plan Proceed with single chamber pacemaker implantation
--- NOTE | 2021-11-13 21:52 | XR ---
EXAMINATION TYPE: XR chest 1V portable DATE OF EXAM: 11/13/2021 COMPARISON: Same-day HISTORY: Pacemaker placement. TECHNIQUE: Single frontal view of the chest is obtained. FINDINGS: There is interval placement of a single lead left pacemaker with tip overlying the right v entricle. There is persistent moderate opacity in the left mid to lower lung with accompanying small pleural effusion. No pneumothorax seen. The cardiac silhouette size is within normal limits. The o sseous structures are intact. IMPRESSION: Status post pacemaker. No pneumothorax. Persistent left-sided opacity with small pleural effusion.
--- NOTE | 2021-11-13 22:01 | CE ---
CARDIAC ELECTROPHYSIOLOGY REPORT Kesha Gilmore is an 86-year-old female who presented with severe bradycardia who underwent a TVP placement by Dr. Heller. Permanent pacemaker was implanted today. Patient was brought to the EP lab in a fasting state. Written informed consent was obtained prior to the procedure. IV vancomycin was administered along with Kefzol. The left pectoral area was prepped and draped as per protocol. 1% lidocaine was used for local anesthesia. A 3 cm incision was made parallel to the deltopectoral groove, about 1.5 cm medial to it. The incision was carried down to the level of the pectoralis muscle. A subfascial pocket was made. Hemostasis was assured. The left axillary vein was accessed at a single point and via an appropriately-sized introducer sheath, a tined lead was positioned in the RV apex. This was a Medtronic model #4074, 58 cm in length and serial number BPD, [id number]. This was placed in the RV apex. Pacing threshold 0.5 V at 0.4 milliseconds, pacing impedance of 1386 ohms and paced R- waves of 9.5 mV TVP. 10 V test was negative. The the leads were secured to the underlying pectoralis fascia using 2 nonabsorbable sutures. Pocket was irrigated with antibiotic solution. Leads were connected to the generator (Medtronic model number W1SR01 serial number [id number]. The leads and generator were then placed in subfascial pocket. The wound was closed in 3 layers and dressed per protocol. RESULT: Successful single-chamber pacemaker implantation for bradycardia. PLAN: IV antibiotics and chest x-ray. MMODL / IJN: [id number] /
[2021-11-13] MEDS: LATANOPROST 0.005% OPHTH DROPS 2.5 ML BTL BOTH EYES SCH (22:23)
[2021-11-14 06:39] LABS: Calcium 7.9 mg/dL (8.4-10.2); Potassium 3.3 mmol/L (3.5-5.1)
--- NOTE | 2021-11-14 07:34 | P.PN ---
Subjective Progress Note Date: 11/14/21 86-year-old female, who came into the emergency department on November 10. She was brought in from the long term, with a very slow heart rate. The patient hasn't been feeling well for the last week or so. She describes shortness of breath, swelling of her feet, cough, occasional phlegm production, and weakness. The patient was found have a bradycardia and cardiac block and was started on dopamine at 5 mcg/kg/m. The patient was found to have new onset of third-degree and high degree second-degree AV block type 2 with intermittent lightheadedness. Attempted to hold ilana as well as Dopamine drip without any improvement and worsened Cr concerning for cardiorenal syndrome and therefore TVP was recommended. She was also given O2 at 2 L. She has a history of gastroesophageal reflux disease, hypertension, osteoarthritis, cellulitis, glaucoma, and hiatal hernia. She is a DO NOT RESUSCITATE patient. She's on 2 L nasal O2. This morning, the patient is wide awake and alert. She remains on room air oxygen. The patient is been placed with a rate of 80. Sensitivity was inserted, the patient improved her renal function with creatinine is currently down to 1.2 with a BUN of 24. The patient is still on Lasix 40 mg IV every 12 hours. There is no echocardiogram done yet. Today's evaluation of 11/14/2021, I'm seeing the patient for a follow-up. The patient underwent a chamber pacemaker insertion yesterday without any complications. The chest x-ray post pacemaker insertion shows no acute abnormalities. No evidence of pneumothorax. The patient is currently on 2 L of oxygen by nasal cannula with a pulse ox of 97%. She is hemodynamically stable. She is off dopamine. Renal function was improving. No chest pain. No nausea. No vomiting. No pain. Her current cardiac rhythm is paced and the rate is at 75. The patient continues to be on IV Lasix. The patient is in a negative fluid balance. Creatinine is improving is currently down to 1.1. Lower extremity edema is improved 2. The patient has still a York catheter in place. Overall fluid balance is negative over the past 24 hours. The patient has a DNR/DNI CODE STATUS. Echocardiogram was noted and the patient has a preserved LV function with an ejection fraction of 55%. Objective - Vital Signs Vital signs: Vital Signs Temp 98.4 F 01/11/22 04:00 Pulse 80 11/14/21 06:00 Resp 24 11/14/21 06:00 BP 156/71 11/14/21 06:00 Pulse Ox 95 11/14/21 07:24 Intake & Output 11/13/21 11/14/21 11/14/21 18:59 06:59 18:59 Intake Total 730 510 Output Total 1325 985 Balance -595 -475 Weight 75.2 kg 74.3 kg Intake: IV 250 510 Sodium Chloride 0.9% 1, 250 110 000 ml @ 40 mls/hr IV . Q24H [facility] Rx#:[id number] ceFAZolin 2 gm In Sodium 50 Chloride 0.9% 50 ml @ 100 mls/hr IVPB ONCE PRN Rx# :[id number] Oral 480 Output: Urine 1325 985 Other: Voiding Method Indwelling Catheter Indwelling Catheter - Exam No acute distress, oriented 3. The patient's currently on 2 L nasal cannula. No obvious respiratory distress, use of accessory muscles, or conversational dyspnea. HEENT examination is grossly unremarkable. Neck supple. Full range of motion. No adenopathy thyromegaly or neck vein distention. Cardiovascular examination reveals regular rhythm rate. S1-S2 normal. No S3 or S4. No discernible murmur noted. Occasional extrasystoles. Heart sounds are di stant. Lungs reveal bilateral crackles. Scattered rhonchi are noted. No wheezes. Breath sounds are equal bilaterally. Abdomen soft bowel sounds are heard. No masses or tenderness. Extremities are intact. No cyanosis or clubbing. Mild to moderate lower extremity edema is noted. Skin is without rash or lesion. Neurologic examination is brief but nonfocal. - Labs CBC & Chem 7: 11/13/21 05:21 11/14/21 05:36 Labs: Abnormal Lab Results - Last 24 Hours (Table) 11/14/21 Range/Units 05:36 Potassium 3.3 L (3.5-5.1) mmol/L Carbon Dioxide 31 H (22-30) mmol/L BUN 18 H (7-17) mg/dL Creatinine 1.12 H (0.52-1.04) mg/dL Calcium 7.9 L (8.4-10.2) mg/dL Microbiology - Last 24 Hours (Table) 11/13/21 15:30 Urine Culture - Preliminary Urine,Catheterized Assessment and Plan Plan: 1. Symptomatic bradycardia with high degree AV block/ 3rd degree AV block despite discontinuation of beta ilana, the patient is post pacemaker insertion. The patient did not respond to discontinuation of beta blockers and dopamine and following that the patient was given a transvenous pacemaker by cardiology. The patient is currently paced at the rate of 80 and the follow-up chest x-ray from today shows a large hiatal hernia on the left. There is no indication for an underlying pneumonia. 2. History of hypertension 3. Lightheadedness, near syncope 4. history of heart failure, appears euvolemic 6. Paroxysmal episodes of Short episodes A. fib 7. Hiatal hernia 8. TRACIE may be related to hemodynamics, bradycardia, and the renal function is improved with insertion of a DVT. The patient's creatinine is down to 1.12 Atherosclerotic today showed 9 History of hypertension. 10 History of gastroesophageal reflux disease. 11 History of glaucoma. 12 History of hiatal hernia. 13 History of osteoarthritis. 14 History of cellulitis Plan: Pacemaker inserted Keep the patient off beta blockers and antihypertensive medication. Echocardiogram to assess LV function the patient has a preserved LV function with an ejection fraction of 55-60%. Patient is completing course of cefazolin. The cultures and the urine are still pending for now. In fact, ICU to cephalosporins. Rocephin has the same coverage as camisole and for that reason Will Be Discontinued and Will Continue the IV Rocephin for Now Pending Further Cultures. The Rationale for This Will Be Explained to the Web Marketing Strategist. Change the Lasix to 40 mg by mouth daily and stopped IV Lasix Chest x-ray showing a large hiatal hernia. No indication for pneumonia. Renal function is stable Transfer this patient to medical surgical floor with telemetry.
[2021-11-14] MEDS: POTASSIUM BICARBONATE/CIT AC 20 MEQ TABLET.EFF NG-TUBE SCH ×2 (08:11→08:17)
[2021-11-14] MEDS: FUROSEMIDE 40 MG TAB PO SCH (08:18)
[2021-11-14] MEDS: PANTOPRAZOLE 40 MG/10 ML VIAL IVP SCH (08:18)
[2021-11-14] MEDS: SODIUM BICARBONATE TAB 650 MG TAB PO SCH (08:18)
--- NOTE | 2021-11-14 09:17 | P.PN ---
Subjective Patient is seen in follow-up for acute kidney injury. Renal function improving. Pacemaker placed last night. Now on oral Lasix. Good urine output. Vital signs are stable. General: On nasal cannula. Lungs: Breath sounds decreased. HEART: Rate and Rhythm are regular. ABDOMEN: Soft, no distention. EXTREMITITES: 1+ edema. Objective - Vital Signs Vital signs: Vital Signs Temp 98.4 F 11/14/21 04:00 Pulse 73 11/14/21 07:00 Resp 9 L 11/14/21 07:00 BP 151/71 11/14/21 07:00 Pulse Ox 95 11/14/21 07:24 Intake & Output 11/13/21 11/14/21 11/14/21 18:59 06:59 18:59 Intake Total 730 510 10 Output Total 1325 985 75 Balance -595 -475 -65 Weight 75.2 kg 74.3 kg Intake: IV 250 510 10 Sodium Chloride 0.9% 1, 250 110 10 000 ml @ 40 mls/hr IV . Q24H [facility] Rx#:[id number] ceFAZolin 2 gm In Sodium 50 Chloride 0.9% 50 ml @ 100 mls/hr IVPB ONCE PRN Rx# :[id number] Oral 480 Output: Urine 1325 985 75 Other: Voiding Method Indwelling Catheter Indwelling Catheter - Labs CBC & Chem 7: 11/13/21 05:21 11/14/21 05:36 Labs: Abnormal Lab Results - Last 24 Hours (Table) 11/14/21 Range/Units 05:36 Potassium 3.3 L (3.5-5.1) mmol/L Carbon Dioxide 31 H (22-30) mmol/L BUN 18 H (7-17) mg/dL Creatinine 1.12 H (0.52-1.04) mg/dL Calcium 7.9 L (8.4-10.2) mg/dL Microbiology - Last 24 Hours (Table) 11/13/21 15:30 Urine Culture - Preliminary Urine,Catheterized Assessment and Plan Plan: Assessment: 1. Acute kidney injury secondary to ATN secondary to hypotension and hemodynamic instability. Baseline creatinine near 1 and peaked at 1.63 this admission - 1.12 today. No hydronephrosis noted on kidney ultrasound. Both kidneys are atrophic. 2. Symptomatic bradycardia with high degree AV block. Beta ilana held. Status post dopamine. Pacemaker placed 11/13/2021. 3. Metabolic acidosis secondary to acute kidney injury. Resolved. 4. Volume overload. Improved with diuresis. 5. Hypokalemia from diuresis. Plan: Maintain oral Lasix. Avoid nephrotoxins. Continue to monitor renal function and urine output. Potassium replaced. Stop bicarb.
--- NOTE | 2021-11-14 11:41 | P.PN ---
Subjective Patient is doing well. She is resting comfortably in bed She is paced 100% Denies any chest discomfort or undue shortness of breath The pacemaker site is healing well no hematoma minimal soakage On examination pulse 80 is 90 beats a minute blood pressure 131/72 mmHg Breath sounds are reduced bilaterally Heart sounds S1-S2 are soft and regular Impression Severe bradycardia Status post TVP Status post single chamber pacemaker, Medtronic yesterday R waves 6.9, is impedance 1178 Pacing threshold 0.5 V at 0.4 ms Appropriate device function Programmed to VVIR 60-120 bpm Suggest From a cardiac standpoint she is stable Device checked and follow-up in the device clinic within one week Restart metoprolol long-acting, 25 mrem by mouth daily Restart amlodipine at 5 mg daily Objective - Vital Signs Vital signs: Vital Signs Temp 98.4 F 11/14/21 04:00 Pulse 90 11/14/21 10:00 Resp 34 H 11/14/21 10:00 BP 144/105 11/14/21 10:00 Pulse Ox 96 11/14/21 10:00 Intake & Output 11/13/21 11/14/21 11/14/21 18:59 06:59 18:59 Intake Total 730 510 10 Output Total 1325 985 75 Balance -595 -475 -65 Weight 75.2 kg 74.3 kg Intake: IV 250 510 10 Sodium Chloride 0.9% 1, 250 110 10 000 ml @ 40 mls/hr IV . Q24H [facility] Rx#:[id number] ceFAZolin 2 gm In Sodium 50 Chloride 0.9% 50 ml @ 100 mls/hr IVPB ONCE PRN Rx# :[id number] Oral 480 Output: Urine 1325 985 75 Other: Voiding Method Indwelling Catheter Indwelling Catheter Indwelling Catheter - Labs CBC & Chem 7: 11/13/21 05:21 11/14/21 05:36 Labs: Abnormal Lab Results - Last 24 Hours (Table) 11/14/21 Range/Units 05:36 Potassium 3.3 L (3.5-5.1) mmol/L Carbon Dioxide 31 H (22-30) mmol/L BUN 18 H (7-17) mg/dL Creatinine 1.12 H (0.52-1.04) mg/dL Calcium 7.9 L (8.4-10.2) mg/dL Microbiology - Last 24 Hours (Table) 11/13/21 15:30 Urine Culture - Preliminary Urine,Catheterized
[2021-11-14] MEDS ORDERED: ceFAZolin 1 GM in SODIUM CHLORIDE 0.9% 250 ML IRRIGATION PRN (15:00)
--- NOTE | 2021-11-14 16:39 | P.PN ---
Subjective Progress Note Date: 11/14/21 History of present illness: This is a pleasant 86-year-old patient who follows with Dr. Garvey however he has not seen her in multiple years due to relocation to [place]. Patient has returned to [place] within the year. However he has she has not been seen at the office. Patient's past medical history includes A. fib, eye disorder, GERD, hypertension, dementia, and hiatal hernia was brought into the emergency room from her extended care facility for evaluation of bradycardia. Patient stated that she did not feel good all day. She was recently seen in the emergency room at [place] due to decreased blood pressure. At that time all of her blood pressure medications were changed and they have been on hold since the middle of October. Patient states that she did feel some palpitation previous to feeling like she was going to pass out. Patient denied any passing out. At this time patient is alert and able to answer questions appropriately. She denies any chest pain. Is complaining of some difficulty breathing and wheezing. She is also complaining of bilateral edema to the lower extremities. Patient is not on any current anticoagulants. 11/12: Patient remains in ICU on dopamine drip. Heart rate bradycardic in the 30s to 40s. She does have episodes of atrial fibrillation however the ventricular response is still bradycardic. The plan is for the patient to have her beta ilana held for 48 hours and still bradycardic permanent pacemaker planned p ossibly tomorrow. Patient is alert and talkative in no acute distress. Patient remains afebrile, heart rate 38-40, respirations 22, blood pressure 105/86, pulse ox 97% on 2 L nasal cannula.to 13.0, hemoglobin 11.2, potassium 4.1, BUN 26 , creatinine 1.63 11/13, patient is seen in ICU, has some conversational dyspnea noted, patient is seen with the daughter at bedside, patient is alert and coherent, nothing by mouth, for the planned procedure for permanent pacemaker today scheduled at 6 PM. He she underwent for temporary transvenous pacemaker performed yesterday by cardiology. On examination, patient has tenderness and swelling the left leg, she is not on any anticoagulation yet, we'll going to do Dopplers of the leg, as these can alter treatment, she has atrial fibrillation as well. Repeat urinalysis, show some pyuria, hematuria, patient's on cefazolin for preprocedure antibiotic protocol, we will start IV Rocephin in the morning await cultures 11/14: The patient remains in intensive care unit. She is status post permanent pacemaker implantation. She states she is feeling less short of breath. She is on antibiotics for UTI. Cardiology has advised to resume metoprolol and amlodipine, patient is waiting for a bed on the [facility] floor. She'll will return to [facility] tomorrow. Review Of Systems: Constitutional: No fever, no chills, no night sweats. No weight change. Reports weakness and fatigue, no lethargy. No daytime sleepiness. EENT: No headache. No blurred vision or double vision, no loss of vision. No loss of Hearing, no ringing in the ears, no dizziness. No nasal drainage or congestion. No epistaxis. No sore throat. Lungs: Reports shortness of breath, + cough, no sputum production. Reports wheezing. Cardiovascular: No chest pain, Reports lower extremity edema. No palpitations. No paroxysmal nocturnal dyspnea. Reports orthopnea. Reports lightheadedness and dizziness. Reports near-syncope episodes. Abdominal: no abdominal discomfort. No nausea, vomiting. no diarrhea. No constipation. No bloody or tarry stools. no loss of appetite. Genitourinary: No dysuria, increased frequency, urgency. No urinary retention. Musculoskeletal: No myalgias. No muscle weakness, no gait dysfunction, no frequent falls. No back pain. No neck pain. Integumentary: No wounds, no lesions. No rash or pruritus. No unusual bruising. No change in hair or nails. Neurologic: No aphasia. No facial droop. No change in mentation. No head injury. No headache. No paralysis. No paresthesia. Psychiatric: No depression. No anxiety. No mood swings. Endocrine: No abnormal blood sugars. No weight change. No excessive sweating or thirst. Physical examination General Appearance: Alert, cooperative, mild distress, this is an 86-year-old pleasant female appears stated age. Neck HEENT: Supple, no lymphadenopathy, no thyroid enlargement, no carotid bruits. Lungs: + wheezes and diminshed Chest Wall: Chest wall normal expansion with deep inspiration no tenderness and no deformity was found on exam, no costochondral pain or discomfort. Heart:Bradycardia and irregular, no murmur, rub or gallop. Back: Symmetric, no curvature, ROM normal, no CVA tenderness. Abdomen: Soft, non-tender, no rebound or rigidity, no hepatosplenomegaly. Extremities: Extremities normal, atraumatic, no cyanosis, 3+ pedal edema. Pulses: 2+ and symmetric. Skin: Skin color, texture, tugor normal, no rashes or lesions. Neurologic: Alert oriented x3 cranial nerves II through XII intact, no motor deficit, no abnormal balance or gait Assessment and plan: 1. Symptomatic heart block. Status post permanent pacemaker. Transferred [facility] floor 2. Near-syncope. As noted above 3. Atrial fibrillation. Echocardiogram ordered, not currently on anticoagulant. 4. Congestive heart failure. Consult cardiology ratio status post permanent pacemaker. 5. Hypertension. Lopressor, Lorcet when necessary hydrochlorothiazide, Norvasc hold at this time 6. Eye disorder. Continue eyedrops 7. GERD. Protonix 40 mg IV 8. Osteoarthritis. Stable 9. Dementia. Stable 10. GI prophylaxis. Protonix 40 mg IV 11. DVT prophylaxis. Pneumatic compression sleeves 12. Left leg pain and swelling, left leg more than right, obtain bilateral venous Dopplers, evaluate for DVT Acute kidney injury, with CK D stage III 3A Dr. Quintana following CODE STATUS: No code DISCHARGE PLAN Return to [facility] tomorrow. Impression and plan of care have been directed as dictated by the signing physician. Marie Padgett nurse practitioner acting as scribe for signing physician. Objective - Vital Signs Vital signs: Vital Signs Temp 98.4 F 11/14/21 04:00 Pulse 90 11/14/21 10:00 Resp 34 H 11/14/21 10:00 BP 144/105 11/14/21 10:00 Pulse Ox 96 11/14/21 10:00 Intake & Output 11/13/21 11/14/21 11/14/21 18:59 06:59 18:59 Intake Total 730 510 10 Output Total 1325 985 75 Balance -595 -475 -65 Weight 75.2 kg 74.3 kg Intake: IV 250 510 10 Sodium Chloride 0.9% 1, 250 110 10 000 ml @ 40 mls/hr IV . Q24H [facility] Rx#:[id number] ceFAZolin 2 gm In Sodium 50 Chloride 0.9% 50 ml @ 100 mls/hr IVPB ONCE PRN Rx# :[id number] Oral 480 Output: Urine 1325 985 75 Other: Voiding Method Indwelling Catheter Indwelling Catheter Indwelling Catheter - Labs CBC & Chem 7: 11/13/21 05:21 11/14/21 05:36 Labs: Abnormal Lab Results - Last 24 Hours (Table) 11/14/21 Range/Units 05:36 Potassium 3.3 L (3.5-5.1) mmol/L Carbon Dioxide 31 H (22-30) mmol/L BUN 18 H (7-17) mg/dL Creatinine 1.12 H (0.52-1.04) mg/dL Calcium 7.9 L (8.4-10.2) mg/dL Microbiology - Last 24 Hours (Table) 11/13/21 15:30 Urine Culture - Preliminary Urine,Catheterized
[2021-11-14] MEDS: LATANOPROST 0.005% OPHTH DROPS 2.5 ML BTL BOTH EYES SCH (21:37)
[2021-11-15 08:54] VITALS: BP 163/74; RESP 17; TEMP 97.8
[2021-11-15] MEDS ORDERED: METOPROLOL SUCCINATE (ER) 25 MG TAB.ER.24H PO SCH (09:00)
[2021-11-15] MEDS: PANTOPRAZOLE 40 MG/10 ML VIAL IVP SCH (09:02)
[2021-11-15] MEDS: FUROSEMIDE 40 MG TAB PO SCH (09:02)
--- NOTE | 2021-11-15 09:47 | P.DS ---
Providers Date of admission: 11/10/21 23:18 Expected date of discharge: 11/15/21 Attending physician: Tima Longo Consults: 11/10/21 23:18 Consult Physician Stat Consulting Provider: Juan Alberto Larose Consult Reason/Comments: ICU management Do you want consulting provider notified?: Already Contacted Consult Physician Stat Consulting Provider: Alfonzo Dolan Consult Reason/Comments: heart block Do you want consulting provider notified?: Already Contacted 11/12/21 09:22 Consult Physician Urgent Consulting Provider: Adam Perez Consult Reason/Comments: TRACIE, anuria Do you want consulting provider notified?: Yes Primary care physician: [facility] Course: History of present illness: This is a pleasant 86-year-old patient who follows with Dr. Longo however he has not seen her in multiple years due to relocation to [place]. Patient has returned to [place] within the year. However he has she has not been seen at the office. Patient's past medical history includes A. fib, eye disorder, GERD, hypertension, dementia, and hiatal hernia was brought into the emergency room from her extended care facility for evaluation of bradycardia. Patient stated that she did not feel good all day. She was recently seen in the emergency room at [place] due to decreased blood pressure. At that time all of her blood pressure medications were changed and they have been on hold since the middle of October. Patient states that she did feel some palpitation previous to feeling like she was going to pass out. Patient denied any passing out. At this time patient is alert and able to answer questions appropriately. She denies any chest pain. Is complaining of some difficulty breathing and wheezing. She is also complaining of bilateral edema to the lower extremities. Patient is not on any current anticoagulants. 11/12: Patient remains in ICU on dopamine drip. Heart rate bradycardic in the 30s to 40s. She does have episodes of atrial fibrillation however the ventricular response is still bradycardic. The plan is for the patient to have her beta ilana held for 48 hours and still bradycardic permanent pacemaker planned po ssibly tomorrow. Patient is alert and talkative in no acute distress. Patient remains afebrile, heart rate 38-40, respirations 22, blood pressure 105/86, pulse ox 97% on 2 L nasal cannula.to 13.0, hemoglobin 11.2, potassium 4.1, BUN 26 , creatinine 1.63 11/13, patient is seen in ICU, has some conversational dyspnea noted, patient is seen with the daughter at bedside, patient is alert and coherent, nothing by mouth, for the planned procedure for permanent pacemaker today scheduled at 6 PM. He she underwent for temporary transvenous pacemaker performed yesterday by cardiology. On examination, patient has tenderness and swelling the left leg, she is not on any anticoagulation yet, we'll going to do Dopplers of the leg, as these can alter treatment, she has atrial fibrillation as well. Repeat urinalysis, show some pyuria, hematuria, patient's on cefazolin for preprocedure antibiotic protocol, we will start IV Rocephin in the morning await cultures 11/14: The patient remains in intensive care unit. She is status post permanent pacemaker implantation. She states she is feeling less short of breath. She is on antibiotics for UTI. Cardiology has advised to resume metoprolol and amlodipine, patient is waiting for a bed on the [facility] floor. She'll will return to [facility] tomorrow. Echocardiogram reveals EF of 55-60% with mild concentric left ventricle hypertrophy, mild aortic regurgitation, mild mitral regurgitation, mild tricuspid regurgitation. Ultrasound of the bilateral lower extremities negative for DVT. 11/15: Patient has been cleared for discharge by cardiology. Pacemaker has been interrogated and plan for follow-up in the device clinic in one week, continue Toprol-XL 25 mg daily and restart amlodipine 5 mg daily. Patient has been afeb rile, heart rate 60, blood pressure 163/74, pulse ox 97% on 3 L nasal cannula. Potassium 3.3 and will be replaced. BUN 18 and creatinine 1.12. Patient having some expiratory wheeze/whistle. Duoneb and pulmicort added. Patient ready for discharge back to [facility]. DISCHARGE DIAGNOSE: 1. Symptomatic heart block. Status post permanent pacemaker. 2. Near-syncope. 3. Atrial fibrillation. Paroxysmal atrial fibrillation 4. Chronic diastolic heart failure. 5. Hypertension. 6. Eye disorder. 7. GERD. 8. Osteoarthritis, generalized 9. Dementia. Stable 10. Left leg pain and swelling, left leg more than right, obtain bilateral venous Dopplers, evaluate for DVT 11. Acute kidney injury, with CKD stage III 3A DISCHARGE PLAN Return to [facility] Greater than 35 minutes was utilized and coordinating patient's discharge. Impression and plan of care have been directed as dictated by the signing physician. Marie Padgett nurse practitioner acting as scribe for signing physician. Patient Condition at Discharge: Good Plan - Discharge Summary Discharge Rx Participant: Yes New Discharge Prescriptions: New amLODIPine [Norvasc] 5 mg PO Q24H tab Budesonide [Pulmicort] 0.5 mg INHALATION BID #60 ml Metoprolol Succinate (ER) [Toprol XL] 25 mg PO DAILY Ipratropium-Albuterol Nebulize [Duoneb 0.5 mg-3 mg/3 ml Soln] 3 ml INHALATION RT-QID ml Furosemide [Lasix] 40 mg PO DAILY tab Continue Omeprazole [PriLOSEC] 20 mg PO HS@2099 Timolol Maleate [timoloL maleate 0.5% Ophth Gel] 1 drop BOTH EYES BID@0700,2099 Acetaminophen [Tylenol] 650 mg PO Q4H PRN PRN Reason: Pain Ferrous Sulfate [Iron (65 MG Elemental)] 325 mg PO BID@0700,2100 Magnesium Hydroxide [Milk of Magnesia Concentrate] 7,200 mg PO DAILY PRN PRN Reason: Constipation Loperamide HCl [Imodium A-D] 2 mg PO Q1H PRN PRN Reason: Loose Stool Ocular Vitamin Tablet 1 tab PO DAILY@0700 Latanoprost/Pf [Latanoprost 0.005% Eye Drop] 1 drop BOTH EYES HS@1999 Discontinued Metoprolol Tartrate [Lopressor] 50 mg PO DIRECTED Losartan/Hydrochlorothiazide [Losartan-Hctz 100-25 mg Tab] 1 tab PO DIRECTED amLODIPine [Norvasc] 10 mg PO DAILY@0700 Discharge Medication List Omeprazole [PriLOSEC] 20 mg PO HS@209911/10/18 [History] Timolol Maleate [timoloL maleate 0.5% Ophth Gel] 1 drop BOTH EYES BID@0700,209911/10/18 [History] Acetaminophen [Tylenol] 650 mg PO Q4H PRN 11/10/21 [History] Ferrous Sulfate [Iron (65 MG Elemental)] 325 mg PO BID@0700,209911/10/21 [History] Latanoprost/Pf [Latanoprost 0.005% Eye Drop] 1 drop BOTH EYES HS@199911/10/21 [History] Loperamide HCl [Imodium A-D] 2 mg PO Q1H PRN 11/10/21 [History] Magnesium Hydroxide [Milk of Magnesia Concentrate] 7,200 mg PO DAILY PRN 11/10/21 [History] Ocular Vitamin Tablet 1 tab PO DAILY@0700 11/10/21 [History] Budesonide [Pulmicort] 0.5 mg INHALATION BID #60 ml 11/15/21 [Rx] Furosemide [Lasix] 40 mg PO DAILY tab 11/15/21 [Rx] Ipratropium-Albuterol Nebulize [Duoneb 0.5 mg-3 mg/3 ml Soln] 3 ml INHALATION RT-QID ml 11/15/21 [Rx] Metoprolol Succinate (ER) [Toprol XL] 25 mg PO DAILY 11/15/21 [Rx] amLODIPine [Norvasc] 5 mg PO Q24H tab 11/15/21 [Rx] Follow up Appointment(s)/Referral(s): Tima Longo MD [Primary Care Provider] - As Needed Discharge Disposition: TRANSFER TO SNF/ECF
--- NOTE | 2021-11-15 11:55 | P.PN ---
Subjective Progress Note Date: 11/15/21 HISTORY OF PRESENT ILLNESS: Patient is status post permanent pacemaker insertion with Dr. Jo. Patient examined this morning at the bedside. Patient denies chest pain or pressure. She denies shortness of breath. She does have a cough during examination. Her vital signs are stable. Blood pressure slightly on the higher side. She has been resumed on her Norvasc. PHYSICAL EXAM: VITAL SIGNS: Reviewed. GENERAL: Well-developed in no acute distress. NECK: Supple. No JVD or thyromegaly LUNGS: Respirations even and unlabored. Lungs essentially clear to auscultation bilaterally. HEART: Regular rate and rhythm. S1 and S2 heard. EXTREMITIES: Normal range of motion. No clubbing or cyanosis. Peripheral pulses intact. No lower extremity edema ASSESSMENT: Severe bradycardia, status post single-chamber pacemaker, [employer]tr[employer] Presyncope Hypertension PLAN: Continue current cardiac medications Increase amlodipine to 5 mg daily Patient to be discharged home today from a cardiac standpoint and follow up on an outpatient basis Nurse practitioner note has been reviewed by physician. Signing provider agrees with the documented findings, assessment, and plan of care. Objective - Vital Signs Vital signs: Vital Signs Temp 97.8 F 11/15/21 05:00 Pulse 60 11/15/21 05:00 Resp 17 11/15/21 05:00 BP 163/74 11/15/21 05:00 Pulse Ox 97 11/15/21 05:00 Intake & Output 11/14/21 11/15/21 11/15/21 18:59 06:59 18:59 Intake Total 210 100 Output Total 285 Balance -75 100 Intake: IV 60 Sodium Chloride 0.9% 1, 60 000 ml @ 40 mls/hr IV . Q24H [facility] Rx#:[id number] Oral 150 100 Output: Urine 285 Other: Voiding Method Indwelling Catheter Indwelling Catheter - Labs CBC & Chem 7: 11/13/21 05:21 11/14/21 05:36 Labs: Microbiology - Last 24 Hours (Table) 11/13/21 15:30 Urine Culture - Final Urine,Catheterized
[2021-11-15] MEDS ORDERED: IPRATROPIUM-ALBUTEROL 3 ML NEB INHALATION SCH (12:00)
--- NOTE | 2021-11-15 12:01 | P.PN ---
Subjective Progress Note Date: 11/15/21 86-year-old female, who came into the emergency department on November 10. She was brought in from the [place] [facility], with a very slow heart rate. The patient hasn't been feeling well for the last week or so. She describes shortness of breath, swelling of her feet, cough, occasional phlegm production, and weakness. The patient was found have a bradycardia and cardiac block and was started on dopamine at 5 mcg/kg/m. The patient was found to have new onset of third-degree and high degree second-degree AV block type 2 with intermittent lightheadedness. Attempted to hold ilana as well as Dopamine drip without any improvement and worsened Cr concerning for cardiorenal syndrome and therefore TVP was recommended. She was also given O2 at 2 L. She has a history of gastroesophageal reflux disease, hypertension, osteoarthritis, cellulitis, glaucoma, and hiatal hernia. She is a DO NOT RESUSCITATE patient. She's on 2 L nasal O2. This morning, the patient is wide awake and alert. She remains on room air oxygen. The patient is been placed with a rate of 80. Sensitivity was inserted, the patient improved her renal function with creatinine is currently down to 1.2 with a BUN of 24. The patient is still on Lasix 40 mg IV every 12 hours. There is no echocardiogram done yet. Today's evaluation of 11/14/2021, I'm seeing the patient for a follow-up. The patient underwent a chamber pacemaker insertion yesterday without any complications. The chest x-ray post pacemaker insertion shows no acute abnormalities. No evidence of pneumothorax. The patient is currently on 2 L of oxygen by nasal cannula with a pulse ox of 97%. She is hemodynamically stable. She is off dopamine. Renal function was improving. No chest pain. No nausea. No vomiting. No pain. Her current cardiac rhythm is paced and the rate is at 75. The patient continues to be on IV Lasix. The patient is in a negative fluid balance. Creatinine is improving is currently down to 1.1. Lower extremity edema is improved 2. The patient has still a York catheter in place. Overall fluid balance is negative over the past 24 hours. The patient has a DNR/DNI CODE STATUS. Echocardiogram was noted and the patient has a preserved LV function with an ejection fraction of 55%. 11/15/2021, the patient is also the intensive care unit. She is doing extremely well. She is on 1 L of oxygen by nasal cannula and her pulse ox is in the order of 94-95%. The patient can be further weaned off the oxygen. She is post pacemaker insertion. No syncope. No hemodynamic instability. No chest pain. York catheter is in place. UTI was suspected and the patient was kept on IV Rocephin. Cultures are still pending for now. She has a preserved LV function with an ejection fraction of 55%. Surgical wound site is dry clean and intact. She has a DNR/DNI CODE STATUS. On her blood work, she has no significant abno rmalities. Creatinine is stable at 1.1 with a mean of 18 and his serum bicarb of 31 with a sodium level of 141. The patient's medication has been essentially adjusted by cardiology. She was started back on beta blockers. Pulmonary critical care services will sign off . Objective - Vital Signs Vital signs: Vital Signs Temp 97.8 F 11/15/21 05:00 Pulse 60 11/15/21 05:00 Resp 17 11/15/21 05:00 BP 163/74 11/15/21 05:00 Pulse Ox 97 11/15/21 05:00 Intake & Output 11/14/21 11/15/21 11/15/21 18:59 06:59 18:59 Intake Total 210 100 Output Total 285 Balance -75 100 Intake: IV 60 Sodium Chloride 0.9% 1, 60 000 ml @ 40 mls/hr IV . Q24H [facility] Rx#:[id number] Oral 150 100 Output: Urine 285 Other: Voiding Method Indwelling Catheter Indwelling Catheter - Exam No acute distress, oriented 3. The patient's currently on 1 L nasal cannula. No obvious respiratory distress, use of accessory muscles, or conversational dyspnea. HEENT examination is grossly unremarkable. Neck supple. Full range of motion. No adenopathy thyromegaly or neck vein distention. Cardiovascular examination reveals regular rhythm rate. S1-S2 normal. No S3 or S4. No discernible murmur noted. Occasional extrasystoles. Heart sounds are distant. Lungs reveal bilateral crackles. Scattered rhonchi are noted. No wheezes. Breath sounds are equal bilaterally. Abdomen soft bowel sounds are heard. No masses or tenderness. Extremities are intact. No cyanosis or clubbing. Mild to moderate lower extremity edema is noted. Skin is without rash or lesion. Neurologic examination is brief but nonfocal. - Labs CBC & Chem 7: 11/13/21 05:21 11/14/21 05:36 Labs: Microbiology - Last 24 Hours (Table) 11/13/21 15:30 Urine Culture - Final Urine,Catheterized Assessment and Plan Plan: 1. Symptomatic bradycardia with high degree AV block/ 3rd degree AV block despite discontinuation of beta ilana, the patient is post pacemaker insertion. The patient did not respond to discontinuation of beta blockers and dopamine and following that the patient was given a transvenous pacemaker by cardiology. The patient is currently paced at the rate of 80 and the follow-up chest x-ray from today shows a large hiatal hernia on the left. There is no indication for an underlying pneumonia. No episodes of dizziness or syncope. The patient is hemodynamically stable at this point. 2. History of hypertension 3. Lightheadedness, near syncope 4. history of heart failure, appears euvolemic 6. Paroxysmal episodes of Short episodes A. fib 7. Hiatal hernia 8. TRACIE may be related to hemodynamics, bradycardia, and the renal function is improved with insertion of a DVT. The patient's creatinine is down to 1.12 Atherosclerotic today showed 9 History of hypertension. 10 History of gastroesophageal reflux disease. 11 History of glaucoma. 12 History of hiatal hernia. 13 History of osteoarthritis. 14 History of cellulitis Plan: Pacemaker inserted , surgical wound site is clear Beta blockers have been initiated Echocardiogram to assess LV function the patient has a preserved LV function with an ejection fraction of 55-60%. Chest x-ray showing a large hiatal hernia. No indication for pneumonia. Renal function is stable Pulmonary critical care services will sign off.
[2021-11-15 12:12] VITALS: PULSE 77
[2021-11-15] MEDS ORDERED: amLODIPine 5 MG TAB PO SCH (18:00)
[2021-11-15] MEDS ORDERED: amLODIPine 2.5 MG TAB PO SCH (18:00)
--- NOTE | 2021-11-15 19:57 | PN ---
PROGRESS NOTE Patient is seen for followup for acute kidney injury. Renal function has improved. The patient is status post pacemaker. EXAMINATION: Today blood pressure 163/74, heart rate of 76 per minute. Patient is afebrile. Examination of the heart S1, S2. Examination of the lungs, bilateral breath sounds are heard. Abdomen is soft, nontender. Examination of lower extremity shows edema 2+ bilaterally. [employer] exam grossly intact. LAB: Show sodium 141, potassium 3.3, BUN 18, creatinine 1.12. ASSESSMENT: 1. Acute kidney injury, currently improved. 2. Volume overload, continue to maintain patient on diuretics. Monitor renal function closely as outpatient. 3. Bradycardia status post pacemaker placement. 4. Volume overload, currently improved. 5. Hypokalemia associated with diuresis. PLAN: Continue with Lasix, increase her protein intake. Monitor labs as outpatient with monitoring of electrolytes and renal function. MMODL / IJN: [id number] /
[2021-11-15] MEDS ORDERED: BUDESONIDE 0.5 MG/2 ML NEBU INHALATION SCH (20:00)
== END 2021-11-15 13:55 | DRG 242 ==
LOC: EC 18:30 → 2SICU 23:18 → 6NMEDSUR 11-14 12:20
PROVIDERS: ADMIT Internal Medicine Geriatric Medicine; ATTEND Internal Medicine Geriatric Medicine
PROC: 02HK3JZ Insertion of Pacemaker Lead into Right Ventricle, Percutaneous Approach (ICD-10-PCS; 2021-11-12)
PROC: 5A1223Z Performance of Cardiac Pacing, Continuous (ICD-10-PCS; 2021-11-12)
PROC: 0JH604Z Insertion of Pacemaker, Single Chamber into Chest Subcutaneous Tissue and Fascia, Open Approach (ICD-10-PCS; principal; 2021-11-13 10:00)
PROC: 02HK3JZ Insertion of Pacemaker Lead into Right Ventricle, Percutaneous Approach (ICD-10-PCS; principal; 2021-11-13 10:00)
DX: I44.2 Atrioventricular block, complete (principal); N17.0 Acute kidney failure with tubular necrosis; I50.32 Chronic diastolic (congestive) heart failure; I13.0 Hypertensive heart and chronic kidney disease with heart failure and stage 1 through stage 4 chronic kidney disease, or unspecified chronic kidney disease; E87.2 Acidosis; N39.0 Urinary tract infection, site not specified; F03.90 Unspecified dementia, unspecified severity, without behavioral disturbance, psychotic disturbance, mood disturbance, and anxiety; I95.9 Hypotension, unspecified; N18.31 Chronic kidney disease, stage 3a; I48.0 Paroxysmal atrial fibrillation; Z66 Do not resuscitate; Z20.822 Contact with and (suspected) exposure to COVID-19; R00.1 Bradycardia, unspecified; H40.9 Unspecified glaucoma; K21.9 Gastro-esophageal reflux disease without esophagitis; E87.6 Hypokalemia; R09.02 Hypoxemia; M79.605 Pain in left leg; R31.9 Hematuria, unspecified; I08.3 Combined rheumatic disorders of mitral, aortic and tricuspid valves; K44.9 Diaphragmatic hernia without obstruction or gangrene; M19.90 Unspecified osteoarthritis, unspecified site; Z79.899 Other long term (current) drug therapy; Z86.19 Personal history of other infectious and parasitic diseases; Z90.89 Acquired absence of other organs; Z90.49 Acquired absence of other specified parts of digestive tract; Z87.19 Personal history of other diseases of the digestive system; Z99.3 Dependence on wheelchair; Z74.01 Bed confinement status; Z96.642 Presence of left artificial hip joint; Z98.890 Other specified postprocedural states
CPT/HCPCS: 33207; 33210; 36415; 71045; 76770; 80048; 80053; 81001; 83605; 83735; 83880; 84443; 84484; 85025; 85027; 85610; 85730; 87086; 87635; 93005; 93306; 93970; 94640; 96361; 96365; 96366; 99291

== ENCOUNTER 2024-01-31 16:53 | Inpatient (IN) | payer MEDICARE, OTHER ==
--- NOTE | 2024-01-31 17:40 | ED ---
SOB HPI - General Chief Complaint: Shortness of Breath Stated Complaint: CHF Time Seen by Provider: 01/31/24 16:59 Source: EMS Mode of arrival: EMS Limitations: no limitations - History of Present Illness Initial Comments: this patient is an 88-year-old woman who is sent here from [facility] to have further treatment for what they felt was exacerbation of congestive heart failure. The patient had been sent there from her long-term care facility this morning after she was observed with labored breathing and respiratory rate up to 36 breaths per minute. When I interview the patient, she states she also was having some dry heaves. Currently she states she is feeling much better. She is not currently having nausea. She denies dyspnea. She is currently on oxygen by nasal cannula at 2 L/m. Review of the transfer records reveals that the patient does have leukocytosis with white blood cell count 22.3 thousand. BNP was 5460. Pro-calcitonin 2.7. Remainder of labs/unremarkable. Chest x-ray was interpreted as showing changes consistent with CHF. 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 The patient received the following treatment prior to transfer. She was given Rocephin 1 g, Zithromax 500 mg, Lasix 40 mg, Solu-Medrol 125 mg, DuoNeb nebulized treatment, Ofirmev 1 g (reported to have temp 102 at [place]). Complaint: shortness of breath -: hour(s) Severity scale (1-10): 0 Consistency: now resolved Improves With: other Worsens With: nothing Known History Of: congestive heart failure Associated Symptoms: lower extremity pain (chronic), nausea/vomiting Treatments Prior to Arrival: bronchodilator, diuretics, other (antibiotics) - Related Data Home Oxygen Therapy: No Home Medications Medication Instructions Recorded Confirmed Acetaminophen [Tylenol] 650 mg PO Q4H PRN 11/10/21 01/31/24 Latanoprost/Pf [Latanoprost 0.005% 1 drop BOTH EYES HS 11/10/21 01/31/24 Eye Drop] Magnesium Hydroxide [Milk of 7,200 mg PO DAILY PRN 11/10/21 01/31/24 Magnesia Concentrate] Ocular Vitamin Tablet 1 tab PO DAILY@0800 11/10/21 01/31/24 Acetaminophen Tab [Tylenol] 650 mg PO TID@0800,1300,2100 01/31/24 01/31/24 Albuterol Nebulized [Ventolin 2.5 mg INHALATION RT-Q4H PRN 01/31/24 01/31/24 Nebulized] Artificial Tears-Hypromellose 2 drops BOTH EYES Q4H PRN 01/31/24 01/31/24 [Artificial Tear Drops] Budesonide [Pulmicort] 0.5 mg INHALATION RT-Q6H PRN 01/31/24 01/31/24 Cyanocobalamin (Vitamin B-12) 1,000 mcg PO DAILY@0800 01/31/24 01/31/24 [Vitamin B-12] Ipratropium-Albuterol Nebulize 3 ml INHALATION RT-Q6H PRN 01/31/24 01/31/24 [Duoneb 0.5 mg-3 mg/3 ml Soln] Liquacel 30 ml PO BID 01/31/24 01/31/24 Metoprolol Tartrate [Lopressor] 25 mg PO DAILY@0800 01/31/24 01/31/24 Omeprazole Magnesium [PriLOSEC OTC] 20 mg PO DAILY@0500 01/31/24 01/31/24 Potassium Chloride ER [K-Dur 20] 20 meq PO BID@0800,209901/31/24 01/31/24 Thiamine [Vitamin B-1] 100 mg PO DAILY@0800 01/31/24 01/31/24 Timolol 0.5% Ophth Soln (Pf) 1 drop BOTH EYES BID@0500,209901/31/24 01/31/24 [Timoptic 0.5% Ocudose] bisacodyL [Dulcolax] 10 mg RECTAL Q72H PRN 01/31/24 01/31/24 guaiFENesin [guaiFENesin Oral 200 mg PO Q4H PRN 01/31/24 01/31/24 Solution] Previous Rx's Medication Instructions Recorded Acetaminophen-Codeine 300-30mg 1 each PO Q6HR PRN #20 tab 02/05/24 [Tylenol w/codeine #3] Amoxic-Pot Clav 500-125 mg 1 tab PO Q12HR #14 tab 02/05/24 [Augmentin 500-125 mg] Bumetanide [BUMEX] 1 mg PO DAILY tab 02/05/24 Pregabalin [Lyrica] 50 mg PO TID@0800,1300,2100 #90 cap 02/05/24 Sacubitril/Valsartan [Entresto 24 1 each PO BID tab 02/05/24 mg-26 mg Tablet] Spironolactone [Aldactone] 25 mg PO DAILY tab 02/05/24 dexAMETHasone 2 mg PO DAILY #5 tab 02/05/24 Allergies Allergy/AdvReac Type Severity Reaction Status Date / Time No Known Allergies Allergy Verified 01/31/24 19:22 Review of Systems ROS Statement: Those systems with pertinent positive or pertinent negative responses have been documented in the HPI. ROS Other: All systems not noted in ROS Statement are negative. Constitutional: Reports: as per HPI, fever Respiratory: Reports: as per HPI, dyspnea. Denies: cough Cardiovascular: Denies: chest pain, palpitations, edema, syncope Gastrointestinal: Reports: nausea. Denies: abdominal pain, vomiting Genitourinary: Denies: dysuria, hematuria Musculoskeletal: Reports: arthralgia (chronic leg pains). Denies: back pain Skin: Denies: rash Neurological: Denies: headache, weakness, confusion Past Medical History Past Medical History: Eye Disorder, GERD/Reflux, Hypertension, Osteoarthritis (OA) Additional Past Medical History / Comment(s): cellulitis and glaucoma. Hiatal hernia History of Any Multi-Drug Resistant Organisms: None Reported Past Surgical History: Appendectomy, Tonsillectomy Additional Past Surgical History / Comment(s): Left Hip Replacement Past Anesthesia/Blood Transfusion Reactions: No Reported Reaction Past Psychological History: No Psychological Hx Reported Smoking Status: Never smoker Past Alcohol Use History: Occasional Past Drug Use History: None Reported - Past Family History Father Family Medical History: Unable to Obtain Mother Family Medical History: Unable to Obtain General Exam Limitations: no limitations General appearance: alert, in no apparent distress Head exam: Present: atraumatic, normocephalic Eye exam: Present: normal appearance. Absent: scleral icterus, conjunctival injection Neck exam: Present: normal inspection, full ROM Respiratory exam: Present: rales (bilateral bases). Absent: respiratory distress, wheezes, rhonchi, stridor, accessory muscle use, decreased breath sounds Cardiovascular Exam: Present: regular rate, normal rhythm, normal heart sounds. Absent: systolic murmur, diastolic murmur, rubs, gallop GI/Abdominal exam: Present: soft. Absent: distended, tenderness, guarding, rebound, rigid, mass Extremities exam: Present: normal inspection, normal capillary refill. Absent: pedal edema, calf tenderness Back exam: Present: normal inspection Neurological exam: Present: alert. Absent: motor sensory deficit Skin exam: Present: warm, dry, intact, normal color. Absent: rash Course Vital Signs 01/31/24 01/31/24 01/31/24 17:03 18:55 21:00 Temperature 99.4 F Pulse Rate 70 68 60 Respiratory 18 18 16 Rate Blood Pressure 105/66 90/73 100/69 O2 Sat by Pulse 96 96 97 Oximetry 01/31/24 01/31/24 22:00 22:51 Temperature Pulse Rate 60 60 Respiratory 18 16 Rate Blood Pressure 107/42 97/68 O2 Sat by Pulse 96 95 Oximetry Medical Decision Making - Medical Decision Making This patient is an 88-year-old woman transferred here from outside hospital af ter she had gone there from [facility] to have evaluation of respiratory distress. At the other hospital the patient diagnosed with CHF exacerbation. I suspect there is multifactorial dyspnea, as some of the studies are suggestive of component of pneumonia as well given the elevated p rocalcitonin, the fever. The patient did receive treatment for both of these problems and will continue treatment for pneumonia and CHF. Was pt. sent in by a medical professional or institution ([facility], [employer], urgent care, hospital, or shelter...) When possible be specific @ -Patient is transferred here from [facility] Did you speak to anyone other than the patient for history (EMS, parent, family, police, friend...)? What history was obtained from this source @ -[No] Did you review nursing and triage notes (agree or disagree)? Why? @ -[I reviewed and agree with nursing and triage notes] Were old charts reviewed (outside hosp., previous admission, EMS record, old EKG, old radiological studies, urgent care reports/EKG's, shelter records)? Report findings @ -[Yes, old charts were reviewed] Differential Diagnosis (chest pain, altered mental status, abdominal pain women, abdominal pain men, vaginal bleeding, weakness, fever, dyspnea, syncope, headache, dizziness, GI bleed, back pain, seizure, CVA, palpatations, mental health, musculoskeletal)? @ -[Differential Dyspnea: Coronary syndrome, arrhythmia, tamponade, asthma, COPD, pulmonary embolism, pneumonia, pneumothorax, pulmonary effusion, anaphylaxis, diabetic ketoacidosis, flailed chest, pulmonary contusion, diaphragmatic rupture, anemia, neuromuscular, this is not meant to be an all-inclusive list. EKG interpreted by me (3pts min.). @ -[As above] X-rays interpreted by me (1pt min.). @ -[None done] CT interpreted by me (1pt min.). @ -[None done] U/S interpreted by me (1pt. min.). @ -[None done] What testing was considered but not performed or refused? (CT, X-rays, U/S, labs)? Why? @ -[None] What meds were considered but not given or refused? Why? @ -[None] Did you discuss the management of the patient with other professionals (professionals i.e. , PA, RACK CLEANER, lab, RT, psych nurse, healthcare social worker, eeo officer, teacher, chief data officer, complex case manager)? Give summary @ -[Case was discussed with the admitting physician and treatment recommendations are incorporated Was smoking cessation discussed for >3mins.? @ -[No] Was critical care preformed (if so, how long)? @ -[No] Were there social determinants of health that impacted care today? How? (Homelessness, low income, unemployed, alcoholism, drug addiction, transportation, low edu. Level, literacy, decrease access to med. care, residential, rehab)? @ -[No] Was there de-escalation of care discussed even if they declined (Discuss DNR or withdrawal of care, Hospice)? DNR status @ -[No] What co-morbidities impacted this encounter? (DM, HTN, Smoking, COPD, CAD, Cancer, CVA, ARF, Chemo, Hep., AIDS, mental health diagnosis, sleep apnea, morbid obesity)? @ -[None] Was patient admitted / discharged? Hospital course, mention meds given and rout e, prescriptions, significant lab abnormalities, going to OR and other pertinent info. @ -[See above Undiagnosed new problem with uncertain prognosis? @ -[No] Drug Therapy requiring intensive monitoring for toxicity (Heparin, Nitro, Insulin, Cardizem)? @ -[No] Were any procedures done? @ -[No] Diagnosis/symptom? @ -[Acute dyspnea Acute exacerbation of CHF Acute pneumonia Acute, or Chronic, or Acute on Chronic? @ -[Acute Uncomplicated (without systemic symptoms) or Complicated (systemic symptoms)? @ -[Complicated by dyspnea Side effects of treatment? @ -[No] Exacerbation, Progression, or Severe Exacerbation? @ -[CHF exacerbation Poses a threat to life or bodily function? How? (Chest pain, [place], [place], pneumonia, PE, COPD, DKA, ARF, appy, cholecystitis, CVA, Diverticulitis, Homicidal, S uicidal, threat to staff... and all critical care pts) @ -[Yes - Lab Data Result diagrams: 02/04/24 05:22 02/04/24 05:22 - EKG Data -: EKG Interpreted by Me Rate: normal (rate 65 bpm) Interpretation: other (rhythm is paced) Disposition Clinical Impression: Dyspnea, CHF exacerbation, Pneumonia Disposition: ADMITTED IP TO THIS HOSP Condition: Stable
[2024-01-31] MEDS ORDERED: ALBUTEROL NEBULIZED 2.5 MG/3 ML INHALATION PRN (19:41)
[2024-01-31] MEDS ORDERED: MAGNESIUM HYDROXIDE 2,400 MG/30 ML CUP PO PRN (19:41)
[2024-01-31] MEDS ORDERED: ACETAMINOPHEN TAB 325 MG TAB PO PRN (19:41)
[2024-01-31] MEDS ORDERED: IPRATROPIUM-ALBUTEROL 3 ML NEB INHALATION PRN (19:41)
[2024-01-31] MEDS ORDERED: BUDESONIDE 0.5 MG/2 ML NEBU INHALATION PRN (19:41)
[2024-01-31] MEDS: TIMOLOL 0.5% OPHTH DROPS 5 ML BTL BOTH EYES SCH (21:13)
[2024-01-31] MEDS: LATANOPROST 0.005% OPHTH DROPS 2.5 ML BTL BOTH EYES SCH (21:14)
[2024-01-31] MEDS: POTASSIUM CHLORIDE ER 20 MEQ TAB.ER PO SCH (21:15)
[2024-01-31] MEDS: AZITHROMYCIN 500 MG TAB PO SCH (21:16)
[2024-01-31] MEDS: PREGABALIN 50 MG CAP PO SCH (22:06)
[2024-01-31] MEDS ORDERED: guaiFENesin SYRUP 100MG/5ML 200 MG/10 ML CUP PO PRN (22:43)
--- NOTE | 2024-01-31 22:59 | P.HPIM ---
History of Present Illness H&P Date: 01/31/24 HISTORY OF PRESENT ILLNESS: 88-year-old female well-known for 3 years was seen by our practice up to March 2022 where patient was hospitalized finally one of the long-term care facility close to [facility]. Patient apparently was sent from [facility] to [facility] emergency room because of worsening in excess patient not symptom of congestive heart failure without successful treatment at her local hospital. She was having quite dyspnea, shortness of breath, PND and orthopnea with mild palpitation no anginal symptoms, she has been retaining slight bit more fluid. Apparently beside her symptom has been having significant cough mostly dry with slight sputum production and worsening picture on the chest x-ray consistent with mostly congestive heart failure with? Of consolidation. CT of the chest was positive for congestive heart failure and large left diaphragmatic hernia containing stomach and large part of her bowel. Question of infiltrate in the bases. Patient was giving 1 g of Rocephin along with azithromycin Lasix 40 mg Solu-Medrol 125 mg was sent apparently to [facility] for management of her heart failure. Patient was to be kept on 2 L of O2 and her lab value showed leukocytosis at 22.3 BNP was 5460 procalcitonin was 2.7 REVIEW OF SYSTEMS: CONSTITUTIONAL: Well-developed elderly with mild scoliosis and mild respiratory distress. EYES: No icterus sclerae, no conjunctivitis. EARS, NOSE, MOUTH, THROAT, and FACE: No sore throat, lymphadenopathy, carotid bruits or deformity. RESPIRATORY: Positive shortness of breath and cough with mild wheezes. CARDIOVASCULAR: Positive PND orthopnea palpitation no angina. GASTROINTESTINAL: No Abd pain, Nausea or vomiting, no Diarrhea or constipation, No GI Bleed, no distention or masses. GENITOURINARY: Negative for Hematuria or UTI, no kidney stones. Slight decrease in urine output. INTEGUMENT/BREAST: Generalized back muscle pain. HEMATOLOGIC/LYMPHATIC: Chronic anemia with no sign of bleeding. MUSCULOSKELTAL: Negative for Myalgia or arthralgia. NEURLOGICAL: Alert with slight confusion no blurred vision moving all her extremities. BEHAVIORAL/PSYCH: Negative. Worsening confusion and memory. ENDOCRINE: Negative. PHYSICAL EXAMINATION: General Appearance: Alert, cooperative, slight confusion mild cough with slight dyspnea. Neck HEENT: Supple, no lymphadenopathy, no thyroid enlargement, no carotid bruits. Lungs: Decreased breath sound bilaterally with fine rhonchi with crackles in the bases but has mild expiratory wheezes. Chest Wall: Decreased expansion with deep inspiration no tenderness and no deformity was found on exam, no costochondral pain or discomfort. Heart: Regular rate and rhythm, S1, S2 positive JVD with positive S3 with PVCs and systolic murmur. Back: Significant scoliosis with kyphosis with mild CVS tenderness. Abdomen: Soft, non-tender, bowel sounds active all four quadrants, no masses, no organomegaly. Extremities: Extremities normal, atraumatic, 1+ edema. Pulses: 2+ and symmetric. Skin: Skin color, texture, tugor normal, no rashes or lesions. Neurologic: Alert oriented with slight confusion. cranial nerves II through XII intact, positive generalized weakness with no abnormal balance and gait. ASSESSMENT AND PLAN: _Severe dyspnea and shortness of breath: Combination of congestive heart failure exacerbation along with bilateral pneumonia and mild fluid overload. _Congestive heart failure exacerbation: We have no new testing lately her echocardiogram from November 25 showed ejection fraction of 55-60 percentile with paced rhythm left ventricular size is normal mild concentric left ventricular hypertrophy with mild aortic regurgitation mild thickening of the mitral valve leaflet with mild regurgitation. She will be on IV diuretics Previously was doing Lasix 80 mg in the morning and 20 in the afternoon be in the hospital this time she will be on 40 mg twice daily we might add smaller dose of spironolactone. _Bilateral pneumonia: She is quite bit symptomatic was started on azithromycin and Rocephin, repeat chest x-ray continue updraft treatment. _History of heart block post pacemaker. Pacemaker been watched carefully with cardiology. _History of A-fib with good pulse rate controlled lately, she is off antico agulation. _Hypertension: Still on amlodipine 5 mg a day metoprolol titrate 25 mg daily. See if there is a possibility to switch her amlodipine to Entresto eventually to treat the heart failure can take care of her blood pressure altogether. _Dementia: Mostly Alzheimer disease with small vessel disease will continue current management. _Large hiatal hernia with big part of her stomach and part of the duodenum herniated above the diaphragmatic, but she is not able to go on any advanced management still currently on proton pump have returned watch for portion. _Chronic neuropathy: Mostly peripheral has been on Lyrica 50 mg 3 times a day. _GI prophylaxis: Remain on pantoprazole. _DVT prophylaxis: Early mobilization along with management of moods. CODE STATUS: DO NOT RESUSCITATE. Admit patient to the inpatient service for more than 2 night stay. Past Medical History Past Medical History: Eye Disorder, GERD/Reflux, Hypertension, Osteoarthritis (OA) Additional Past Medical History / Comment(s): cellulitis and glaucoma. Hiatal hernia History of Any Multi-Drug Resistant Organisms: None Reported Past Surgical History: Appendectomy, Tonsillectomy Additional Past Surgical History / Comment(s): Left Hip Replacement Past Anesthesia/Blood Transfusion Reactions: No Reported Reaction Past Psychological History: No Psychological Hx Reported Smoking Status: Never smoker Past Alcohol Use History: Occasional Past Drug Use History: None Reported - Past Family History Father Family Medical History: Unable to Obtain Mother Family Medical History: Unable to Obtain Medications and Allergies Home Medications Medication Instructions Recorded Confirmed Type Acetaminophen [Tylenol] 650 mg PO Q4H PRN 11/10/21 01/31/24 History Latanoprost/Pf [Latanoprost 0.005% 1 drop BOTH EYES HS 11/10/21 01/31/24 History Eye Drop] Magnesium Hydroxide [Milk of 7,200 mg PO DAILY PRN 11/10/21 01/31/24 History Magnesia Concentrate] Ocular Vitamin Tablet 1 tab PO DAILY@0800 11/10/21 01/31/24 History Acetaminophen Tab [Tylenol] 650 mg PO TID@0800,1300,2100 01/31/24 01/31/24 History Albuterol Nebulized [Ventolin 2.5 mg INHALATION RT-Q4H PRN 01/31/24 01/31/24 History Nebulized] Artificial Tears-Hypromellose 2 drops BOTH EYES Q4H PRN 01/31/24 01/31/24 History [Artificial Tear Drops] Budesonide [Pulmicort] 0.5 mg INHALATION RT-Q6H PRN 01/31/24 01/31/24 History Cyanocobalamin (Vitamin B-12) 1,000 mcg PO DAILY@0800 01/31/24 01/31/24 History [Vitamin B-12] Furosemide [Lasix] 20 mg PO DAILY@1300 01/31/24 01/31/24 History Furosemide [Lasix] 80 mg PO DAILY@0800 01/31/24 01/31/24 History Ipratropium-Albuterol Nebulize 3 ml INHALATION RT-Q6H PRN 01/31/24 01/31/24 History [Duoneb 0.5 mg-3 mg/3 ml Soln] Liquacel 30 ml PO BID 01/31/24 01/31/24 History Metoprolol Tartrate [Lopressor] 25 mg PO DAILY@0800 01/31/24 01/31/24 History Omeprazole Magnesium [PriLOSEC OTC] 20 mg PO DAILY@0500 01/31/24 01/31/24 History Potassium Chloride ER [K-Dur 20] 20 meq PO BID@0800,2100 01/31/24 01/31/24 History Pregabalin [Lyrica] 50 mg PO TID@0800,1300,209901/31/24 01/31/24 History Thiamine [Vitamin B-1] 100 mg PO DAILY@0800 01/31/24 01/31/24 History Timolol 0.5% Ophth Soln (Pf) 1 drop BOTH EYES BID@0500,209901/31/24 01/31/24 History [Timoptic 0.5% Ocudose] amLODIPine [Norvasc] 5 mg PO DAILY@0800 01/31/24 01/31/24 History bisacodyL [Dulcolax] 10 mg RECTAL Q72H PRN 01/31/24 01/31/24 History guaiFENesin [guaiFENesin Oral 200 mg PO Q4H PRN 01/31/24 01/31/24 History Solution] Allergies Allergy/AdvReac Type Severity Reaction Status Date / Time No Known Allergies Allergy Verified 01/31/24 19:22 Physical Exam Vitals: Vital Signs Temp Pulse Resp BP Pulse Ox 01/31/24 22:00 60 18 107/42 96 01/31/24 21:00 60 16 100/69 97 01/31/24 18:55 68 18 90/73 96 01/31/24 17:03 99.4 F 70 18 105/66 96 Intake and Output 01/31/24 01/31/24 01/31/24 06:59 14:59 22:59 Other: Weight 72.575 kg Results CBC & Chem 7: 02/01/24 07:58
[2024-02-01] MEDS ORDERED: ARTIFICIAL TEARS-HYPROMELLOSE DROPS 15 ML BTL BOTH EYES PRN
[2024-02-01] MEDS: PANTOPRAZOLE 40 MG TABLET PO SCH (04:42)
--- NOTE | 2024-02-01 07:11 | XR ---
EXAMINATION TYPE: XR chest 2V DATE OF EXAM: 02/01/2024 COMPARISON: 11/13/2021 INDICATION: Short of breath TECHNIQUE: Frontal and lateral views of the chest are obtained. FINDINGS: The heart size is normal. The pulmonary vasculature is normal. Left lower lobe infiltrate is present. Pacemaker overlies left chest. There is a focal eventration of right diaphragm. A small right pleural effusion is present.. IMPRESSION: 1. Lower lobe infiltrate improved from comparison. Continued follow-up is recommended. 2. Minimal right pleural effusion.
[2024-02-01] MEDS ORDERED: amLODIPine 5 MG TAB PO SCH (08:00)
[2024-02-01] MEDS ORDERED: bisacodyL 10 MG SUPP RECTAL PRN (09:00)
[2024-02-01] MEDS ORDERED: NON FORMULARY DRUG (Liquacel 30 ML) PO SCH (09:00)
[2024-02-01 09:06] LABS: Basophils % (A) 0 %; Eosinophils % (A) 0 %; HCT 41.8 % (34.0-46.0); HGB 13.1 gm/dL (11.4-16.0); Hypochromasia Slight; Lymphocytes # (A) 0.8 k/uL (1.0-4.8); Lymphocytes % (A) 4 %; MCHC 31.3 g/dL (31.0-37.0); MCV 95.8 fL (80.0-100.0); Mean Platelet Volume 9.3; Monocytes # (A) 0.5 k/uL (0-1.0); Monocytes % (A) 2 %; Neutrophils # (A) 21.4 k/uL (1.3-7.7); Neutrophils % (A) 94 %; Platelet Count 246 k/uL (150-450); RBC 4.36 m/uL (3.80-5.40); RDW 12.8 % (11.5-15.5); WBC 22.8 k/uL (3.8-10.6)
--- NOTE | 2024-02-01 09:30 | P.PN ---
Subjective Progress Note Date: 02/01/24 HISTORY OF PRESENT ILLNESS: 88-year-old female well-known for 3 years was seen by our practice up to March 2022 where patient was hospitalized finally one of the long-term care facility close to [facility]. Patient apparently was sent from [facility] to [facility] emergency room because of worsening in excess patient not symptom of congestive heart failure without successful treatment at her local hospital. She was having quite dyspnea, shortness of breath, PND and orthopnea with mild palpitation no anginal symptoms, she has been retaining slight bit more fluid. Apparently beside her symptom has been having significant cough mostly dry with slight sputum production and worsening picture on the chest x-ray consistent with mostly congestive heart failure with? Of consolidation. CT of the chest was positive for congestive heart failure and large left diaphragmatic hernia containing stomach and large part of her bowel. Question of infiltrate in the bases. Patient was giving 1 g of Rocephin along with azithromycin Lasix 40 mg Solu-Medrol 125 mg was sent apparently to [facility] for management of her heart failure. Patient was to be kept on 2 L of O2 and her lab value showed leukocytosis at 22.3 BNP was 5460 procalcitonin was 2.7 02/01/2024: Patient level be done this morning along with chest x-ray, will continue Lasix 40 mg IV twice a day along with Aldactone 25 mg daily also. Amlodipine completely and initiate patient on Entresto smaller dose awaiting for the final echocardiogram. Also continue to treat patient bilateral pneumonia with antibiotics continue updraft treatment continue supportive care with oxygen if needed. Patient complains seems to be little bit better continue to watch patient's I's and O's. REVIEW OF SYSTEMS: CONSTITUTIONAL: Well-developed elderly with mild scoliosis and mild respiratory distress. EYES: No icterus sclerae, no conjunctivitis. EARS, NOSE, MOUTH, THROAT, and FACE: No sore throat, lymphadenopathy, carotid bruits or deformity. RESPIRATORY: Positive shortness of breath and cough with mild wheezes. CARDIOVASCULAR: Positive PND orthopnea palpitation no angina. GASTROINTESTINAL: No Abd pain, Nausea or vomiting, no Diarrhea or constipation, No GI Bleed, no distention or masses. GENITOURINARY: Negative for Hematuria or UTI, no kidney stones. Slight decrease in urine output. INTEGUMENT/BREAST: Generalized back muscle pain. HEMATOLOGIC/LYMPHATIC: Chronic anemia with no sign of bleeding. MUSCULOSKELTAL: Negative for Myalgia or arthralgia. NEURLOGICAL: Alert with slight confusion no blurred vision moving all her extremities. BEHAVIORAL/PSYCH: Negative. Worsening confusion and memory. ENDOCRINE: Negative. PHYSICAL EXAMINATION: General Appearance: Alert, cooperative, slight confusion mild cough with slight dyspnea. Neck HEENT: Supple, no lymphadenopathy, no thyroid enlargement, no carotid bruits. Lungs: Decreased breath sound bilaterally with fine rhonchi with crackles in the bases but has mild expiratory wheezes. Chest Wall: Decreased expansion with deep inspiration no tenderness and no deformity was found on exam, no costochondral pain or discomfort. Heart: Regular rate and rhythm, S1, S2 positive JVD with positive S3 with PVCs and systolic murmur. Back: Significant scoliosis with kyphosis with mild CVS tenderness. Abdomen: Soft, non-tender, bowel sounds active all four quadrants, no masses, no organomegaly. Extremities: Extremities normal, atraumatic, 1+ edema. Pulses: 2+ and symmetric. Skin: Skin color, texture, tugor normal, no rashes or lesions. Neurologic: Alert oriented with slight confusion. cranial nerves II through XII intact, positive generalized weakness with no abnormal balance and gait. ASSESSMENT AND PLAN: _Severe dyspnea and shortness of breath: Combination of congestive heart failure exacerbation along with bilateral pneumonia and mild fluid overload. _Congestive heart failure exacerbation: We have no new testing lately her echocardiogram from November 2021 showed ejection fraction of 55-60 percentile with paced rhythm left ventricular size is normal mild concentric left ventricular hypertrophy with mild aortic regurgitation mild thickening of the mitral valve leaflet with mild regurgitation. She will be on IV diuretics Previously was doing Lasix 80 mg in the morning and 20 in the afternoon be in the hospital this time she will be on 40 mg twice daily IV along with spironolactone 25 mg daily and initiate Entresto smaller dose. _Bilateral pneumonia: She is quite bit symptomatic was started on azithromycin and Rocephin, repeat chest x-ray continue updraft treatment. With a white blood cell up to 22,000 and infiltrate look behind her side on the left side we will continue current antibiotics for now. _History of heart block post pacemaker. Still cannot see cardiology. _History of A-fib with good pulse rate controlled lately. Still on metoprolol tartrate 25 mg daily. _Hypertension: Still on amlodipine 5 mg a day metoprolol tartrate 25 mg daily.. Introducing Entresto might be able to take her off amlodipine completely. _Dementia: Mostly Alzheimer disease with small vessel disease will continue current management. _Large hiatal hernia with big part of her stomach and part of the duodenum herniated above the diaphragmatic, but she is not able to go on any advanced management still currently on proton pump have returned watch for portion. Not quite sure if this is a big part of the shortness of breath patient has unsure when she had a large meal specially late in the evening and lay down with a hiatal hernia with be part of the stomach above the diaphragm has big impact on affecting patient causing more shortness of breath. _Chronic neuropathy: Mostly peripheral has been on Lyrica 50 mg 3 times a day. _GI prophylaxis: Remain on pantoprazole. Prognosis: Fair. Discussion: Continue to treat patient for CHF along with bilateral pneumonia continue supportive care advance medication and waiting for echocardiogram repeat chest x-ray today repeat proBNP see with result compared to the early 1 also troponin will be done as well. Objective - Vital Signs Vital signs: Vital Signs Temp 97.6 F 02/01/24 02:00 Pulse 60 02/01/24 02:00 Resp 16 02/01/24 02:00 BP 129/62 02/01/24 02:00 Pulse Ox 95 02/01/24 02:00 FiO2 Intake & Output 01/31/24 01/31/24 02/01/24 06:59 18:59 06:59 Weight 72.575 kg 72.5 kg Other: Voiding Method External Catheter # Voids 2 # Bowel Movements 1 - Labs CBC & Chem 7: 02/01/24 07:58
[2024-02-01 09:31] LABS: ALT 26 U/L (4-34); AST 43 U/L (14-36); African American GFR (CKD) 82 (>60 ml/min/1.73 sqM); Albumin 3.5 g/dL (3.5-5.0); Albumin/Globulin Ratio 0.9; Alkaline Phosphatase 100 U/L (38-126); Anion Gap 9 mmol/L; Blood Urea Nitrogen 25 mg/dL (7-17); Calcium 8.7 mg/dL (8.4-10.2); Carbon Dioxide 31 mmol/L (22-30); Chloride 101 mmol/L (98-107); Globulin 3.8 g/dL; Glucose 125 mg/dL (74-99); Magnesium 2.2 mg/dL (1.6-2.3); Non-African American GFR(CKD) 71 (>60 ml/min/1.73 sqM); Sodium 141 mmol/L (137-145); Total Bilirubin 0.4 mg/dL (0.2-1.3); Total Protein 7.3 g/dL (6.3-8.2)
[2024-02-01 09:38] LABS: NT-Pro-B-Type Natriuretic Pept 14000 pg/mL
[2024-02-01] MEDS: FUROSEMIDE 10 MG/ML 4 ML VIAL IV SCH (09:51)
[2024-02-01] MEDS: VIT A,C & E-LUTEIN-MINERALS 1 EACH TAB PO SCH (10:23)
[2024-02-01] MEDS: ACETAMINOPHEN TAB 325 MG TAB PO SCH (10:23)
[2024-02-01] MEDS: METOPROLOL TARTRATE 25 MG TAB PO SCH (10:23)
[2024-02-01] MEDS: THIAMINE 100 MG TAB PO SCH (10:23)
[2024-02-01] MEDS: SPIRONOLACTONE 25 MG TAB PO SCH (10:23)
[2024-02-01] MEDS: CYANOCOBALAMIN 500 MCG TAB PO SCH (10:23)
[2024-02-01] MEDS: SACUBITRIL/VALSARTAN 24 MG-26 MG TABLET PO SCH (10:32)
--- NOTE | 2024-02-01 11:42 | CA ---
Transthoracic Echo Report Name: Kesha Gilmore Age: 88 Gender: F : 1935 Exam Date: 02/01/2024 07:20 Exam Location: [facility] Ht (in): 60 Wt (lb): 160 Ordering Physician: Chris Pierson MD Attending/Referring Phys: Embossograph Operator Emma Dozier RCS Procedure CPT: Indications: Dyspnea, CHF exacerbation Cardiac Hx: Technical Quality: Technically difficult study Contrast 1: Definity Total Dose (mL): 2 Contrast 2: Total Dose (mL): MEASUREMENTS (Male / Female) Normal Values 2D ECHO LV Diastolic Diameter PLAX 4.2 cm 4.2 - 5.9 / 3.9 - 5.3 cm LV Systolic Diameter PLAX 2.4 cm IVS Diastolic Thickness 0.8 cm 0.6 - 1.0 / 0.6 - 0.9 cm LVPW Diastolic Thickness 0.8 cm 0.6 - 1.0 / 0.6 - 0.9 cm LV Relative Wall Thickness 0.4 RV Internal Dim ED PLAX 2.2 cm LVOT Diameter 1.9 cm LV Diastolic Volume MOD 4C 85.7 cm??? LV Systolic Volume MOD 4C 21.4 cm??? LV Ejection Fraction MOD 4C 75.1 % LV Cardiac Index MOD 4C 2202.2 cm???/min???m??? LV Diastolic Length 4C 6.4 cm LV Systolic Length 4C 4.8 cm LA Volume 84.4 cm??? 18 - 58 / 22 - 52 cm??? LA Volume Index 47.4 cm???/m??? 16 - 28 cm???/m??? DOPPLER AV Peak Velocity 143.0 cm/s AV Peak Gradient 8.2 mmHg AV Mean Velocity 98.6 cm/s AV Mean Gradient 4.4 mmHg AV Velocity Time Integral 34.9 cm LVOT Peak Velocity 104.4 cm/s LVOT Peak Gradient 4.4 mmHg LVOT Velocity Time Integral 26.0 cm LVOT Stroke Volume 70.5 cm??? LVOT Stroke Volume Index 41.5 ml/m??? LVOT Cardiac Index 2413.1 cm???/min???m??? AV Area Cont Eq vti 2.0 cm??? AV Area Cont Eq pk 2.0 cm??? MV Peak Velocity 173.6 cm/s MV Peak Gradient 12.1 mmHg MV Mean Velocity 101.1 cm/s MV Mean Gradient 5.1 mmHg MV Velocity Time Integral 45.8 cm TR Peak Velocity 266.1 cm/s TR Peak Gradient 28.3 mmHg Right Ventricular Systolic Press 43.3 mmHg PV Peak Velocity 95.0 cm/s PV Peak Gradient 3.6 mmHg FINDINGS Left Ventricle Left ventricular ejection fraction is estimated at 65-70 %. Left ventricular wall thickness normal. Left ventricular cavity size normal. No obvious regional wall motion abnormalities. Right Ventricle Normal right ventricular size and function. Moderately increased right ventricular systolic pressure Right Atrium Right atrium not well visualized. Left Atrium Severely increased left atrial volume. Mitral Valve Severe thickening/calcification of the posterior mitral valve leaflet. Mild thickening/calcification of the anterior mitral valve leaflet. Severe mitral annular calcification. No evidence for mitral valve prolapse. Moderate mitral stenosis. Mild to moderate mitral regurgitation. Aortic Valve Trileaflet aortic valve. No aortic valve stenosis. Trace aortic regurgitation. Tricuspid Valve Structurally normal tricuspid valve. No tricuspid prolapse. No tricuspid stenosis. Mild to moderate tricuspid regurgitation. Pulmonic Valve Pulmonic valve not well visualized. No pulmonic stenosis. Trace pulmonic regurgitation. Pericardium No pericardial effusion. Aorta Normal size aortic root and proximal ascending aorta. CONCLUSIONS Left ventricular ejection fraction is estimated at 65-70 %. No obvious regional wall motion abnormalities. Severe thickening/calcification of the posterior mitral valve leaflet. Severe mitral annular calcification. Moderate mitral regurgitation. Severe LA dilatation RVSP 45 mmHg Previewed by: Dr Brian Santiago (Electronically Signed) Final Date: 01 February 2024 11:41
[2024-02-01 13:16] LABS: Chol/HDL Ratio 4.34 Ratio; LDL Cholesterol,Calculated 129.5 mg/dL (0.0-131.0); VLDL Calculation 16.72 mg/dL (5.00-40.00)
--- NOTE | 2024-02-01 18:18 | P.CRDCN ---
History of Present Illness Consult date: 02/01/24 History of present illness: HISTORY OF PRESENTING ILLNESS 88-year-old female with past medical history of CHF, high-grade AV block with single-chamber PPM 2021, dementia, large hiatal hernia, chronic neuropathy. This time she was sent from [facility] because of worsening shortness of breath, increased fatigue and lower extremity edema. Patient has been having shortness of breath with minimal exertion, orthopnea and paroxysmal nocturnal dyspnea symptoms. She is also reporting mild palpitations. Labs showed WBC 22, hemoglobin 13, creatinine 0.7, BUN 25, BNP 14,000. This has been highest when compared to her prior levels. Troponin was negative at 0.029. LDL 129, TSH 0.5 CXR showed cardiomegaly with mild pulm congestion ECG shows ventricular paced rhythm BP 123/63, heart rate 61, REVIEW OF SYSTEMS 14 point review of system is negative except what is mentioned above in HPI. PHYSICAL EXAMINATION Vital signs reviewed. Head: Normocephalic. Eyes: Sclerae nonicteric. Neck: Brisk carotid upstroke, no jugular venous distention. Lungs: Clear to auscultation. Heart: Regular rate and rhythm, S1-S2, no S3, no murmur or rub. Abdomen: Soft nontender, positive bowel sounds. Extremities: No edema, intact distal pulses. Neuro: Alert, oritented, no focal deficits. Detailed neuro exam was not performed. ASSESSMENT Mild-moderate HFpEF exacerbation Moderate degenerative MR with bulky calcification of posterior mitral leaflet Community-acquired pneumonia Acute hypoxic respiratory failure Hypertension Dyslipidemia Large hiatal hernia Dementia Chronic neuropathy Debility and frailty There has been prior reported history of short runs of atrial tachycardia with no clear P waves. In past there has been no documented atrial fibrillation therefore she has not been on anticoagulation since. She has a single-chamber pacemaker PLAN PPM interrogation to see if patient has atrial fibrillation however it might be difficult to yeild useful infromation as patient only has single-chamber PPM Continue Lasix 40 mg IV twice daily Continue Aldactone 25 mg, Entresto 24 /26 mg twice daily, metoprolol XL 25 mg daily Monitor renal functions, electrolytes IV antibiotics for pneumonia Brian Santiago MD, FACC, RPVI Thank you for allowing [facility] to participate in this patient's care. Feel free to reach out in case of any followup questions. Past Medical History Past Medical History: Eye Disorder, GERD/Reflux, Hypertension, Osteoarthritis (OA) Additional Past Medical History / Comment(s): cellulitis and glaucoma. Hiatal hernia History of Any Multi-Drug Resistant Organisms: None Reported Past Surgical History: Appendectomy, Tonsillectomy Additional Past Surgical History / Comment(s): Left Hip Replacement Past Anesthesia/Blood Transfusion Reactions: No Reported Reaction Past Psychological History: No Psychological Hx Reported Smoking Status: Never smoker Past Alcohol Use History: Occasional Past Drug Use History: None Reported - Past Family History Father Family Medical History: Unable to Obtain Mother Family Medical History: Unable to Obtain Medications and Allergies Home Medications Medication Instructions Recorded Confirmed Type Acetaminophen [Tylenol] 650 mg PO Q4H PRN 11/10/21 01/31/24 History Latanoprost/Pf [Latanoprost 0.005% 1 drop BOTH EYES HS 11/10/21 01/31/24 History Eye Drop] Magnesium Hydroxide [Milk of 7,200 mg PO DAILY PRN 11/10/21 01/31/24 History Magnesia Concentrate] Ocular Vitamin Tablet 1 tab PO DAILY@0800 11/10/21 01/31/24 History Acetaminophen Tab [Tylenol] 650 mg PO TID@0800,1300,209901/31/24 01/31/24 History Albuterol Nebulized [Ventolin 2.5 mg INHALATION RT-Q4H PRN 01/31/24 01/31/24 History Nebulized] Artificial Tears-Hypromellose 2 drops BOTH EYES Q4H PRN 01/31/24 01/31/24 History [Artificial Tear Drops] Budesonide [Pulmicort] 0.5 mg INHALATION RT-Q6H PRN 01/31/24 01/31/24 History Cyanocobalamin (Vitamin B-12) 1,000 mcg PO DAILY@0800 01/31/24 01/31/24 History [Vitamin B-12] Furosemide [Lasix] 20 mg PO DAILY@1300 01/31/24 01/31/24 History Furosemide [Lasix] 80 mg PO DAILY@0800 01/31/24 01/31/24 History Ipratropium-Albuterol Nebulize 3 ml INHALATION RT-Q6H PRN 01/31/24 01/31/24 History [Duoneb 0.5 mg-3 mg/3 ml Soln] Liquacel 30 ml PO BID 01/31/24 01/31/24 History Metoprolol Tartrate [Lopressor] 25 mg PO DAILY@0800 01/31/24 01/31/24 History Omeprazole Magnesium [PriLOSEC OTC] 20 mg PO DAILY@0500 01/31/24 01/31/24 History Potassium Chloride ER [K-Dur 20] 20 meq PO BID@0800,209901/31/24 01/31/24 History Pregabalin [Lyrica] 50 mg PO TID@0800,1300,209901/31/24 01/31/24 History Thiamine [Vitamin B-1] 100 mg PO DAILY@0800 01/31/24 01/31/24 History Timolol 0.5% Ophth Soln (Pf) 1 drop BOTH EYES BID@0500,209901/31/24 01/31/24 History [Timoptic 0.5% Ocudose] amLODIPine [Norvasc] 5 mg PO DAILY@0800 01/31/24 01/31/24 History bisacodyL [Dulcolax] 10 mg RECTAL Q72H PRN 01/31/24 01/31/24 History guaiFENesin [guaiFENesin Oral 200 mg PO Q4H PRN 01/31/24 01/31/24 History Solution] Allergies Allergy/AdvReac Type Severity Reaction Status Date / Time No Known Allergies Allergy Verified 01/31/24 19:22 Physical Exam Vitals: Vital Signs Temp Pulse Pulse Resp BP BP Pulse Ox 02/01/24 12:58 98.2 F 61 18 123/63 98 02/01/24 07:05 97.3 F L 61 20 137/59 99 02/01/24 02:00 97.6 F 60 16 129/62 95 01/31/24 23:32 97.8 F 68 16 147/55 97 01/31/24 22:51 60 16 97/68 95 01/31/24 22:00 60 18 107/42 96 01/31/24 21:00 60 16 100/69 97 01/31/24 18:55 68 18 90/73 96 Intake and Output 02/01/24 02/01/24 02/01/24 06:59 14:59 22:59 Other: Voiding Method External Catheter External Catheter # Voids 2 # Bowel Movements 1 1 Weight 72.5 kg 72.5 kg Results 02/01/24 07:58 02/01/24 07:58 Cardiac Enzymes 02/01/24 02/01/24 Range/Units 07:58 07:58 AST 43 H (14-36) U/L Troponin I 0.029 (0.000-0.034) ng/mL Lipids 02/01/24 Range/Units 07:58 Triglycerides 83.60 (0.00-149.00) mg/dL Cholesterol 190.00 (0.00-200.00) mg/dL HDL Cholesterol 43.80 (40.00-60.00) mg/dL Cholesterol/HDL Ratio 4.34 Ratio CBC 02/01/24 Range/Units 07:58 WBC 22.8 H (3.8-10.6) k/uL RBC 4.36 (3.80-5.40) m/uL Hgb 13.1 (11.4-16.0) gm/dL Hct 41.8 (34.0-46.0) % Plt Count 246 (150-450) k/uL Comprehensive Metabolic Panel 02/01/24 Range/Units 07:58 Sodium 141 (137-145) mmol/L Potassium 4.0 (3.5-5.1) mmol/L Chloride 101 (98-107) mmol/L Carbon Dioxide 31 H (22-30) mmol/L BUN 25 H (7-17) mg/dL Creatinine 0.76 (0.52-1.04) mg/dL Glucose 125 H (74-99) mg/dL Calcium 8.7 (8.4-10.2) mg/dL AST 43 H (14-36) U/L ALT 26 (4-34) U/L Alkaline Phosphatase 100 (38-126) U/L Total Protein 7.3 (6.3-8.2) g/dL Albumin 3.5 (3.5-5.0) g/dL Current Medications Generic Name Dose Route Start Last Admin Trade Name Freq PRN Reason Stop Dose Admin Acetaminophen 650 mg 01/31/24 19:41 Acetaminophen Tab 325 Mg Tab PO Q4H PRN Mild Pain Acetaminophen 650 mg 02/01/24 08:00 02/01/24 12:22 Acetaminophen Tab 325 Mg Tab PO Not Given TID@0800,1300,2100 [facility] Albuterol/Ipratropium 3 ml 01/31/24 19:41 Ipratropium-Albuterol 3 Ml Neb INHALATION RT-Q6H PRN Shortness Of Breath Or Wheezing Artificial Tears 2 drops 02/01/24 00:00 Artificial Tears-Hypromellose Drops 15 Ml Btl BOTH EYES Q4H PRN dry/itchy eyes Azithromycin 500 mg 01/31/24 21:00 01/31/24 21:16 Azithromycin 500 Mg Tab PO 02/03/24 21:01 500 mg [facility] Administration Protocol Bisacodyl 10 mg 02/01/24 09:00 Bisacodyl 10 Mg Supp RECTAL Q72H PRN Constipation Budesonide 0.5 mg 01/31/24 19:41 Budesonide 0.5 Mg/2 Ml Nebu INHALATION RT-Q6H PRN Shortness Of Breath Or Wheezing Cyanocobalamin 1,000 mcg 02/01/24 08:00 02/01/24 10:23 Cyanocobalamin 500 Mcg Tab PO 1,000 mcg DAILY@0800 [facility] Administration Furosemide 40 mg 02/01/24 09:00 02/01/24 09:51 Furosemide 10 Mg/Ml 4 Ml Vial IV 40 mg Q12HR [facility] Administration Guaifenesin 200 mg 01/31/24 22:43 Guaifenesin Syrup 100mg/5ml 200 Mg/10 Ml Cup PO Q4H PRN Cough Ceftriaxone Sodium 2 gm/ 50 mls @ 100 mls/hr 01/31/24 21:00 01/31/24 21:58 Sodium Chloride IVPB 100 mls/hr [facility] Administration Protocol Latanoprost 1 drops 01/31/24 21:00 01/31/24 21:14 Latanoprost 0.005% Ophth Drops 2.5 Ml Btl BOTH EYES 1 drops [facility] Administration Magnesium Hydroxide 2,400 mg 01/31/24 19:41 Magnesium Hydroxide 2,400 Mg/30 Ml Cup PO DAILY PRN Constipation Metoprolol Succinate 25 mg 02/02/24 09:00 Metoprolol Succinate (Er) 25 Mg Tab.Er.24h PO DAILY [facility] Multivitamins/Minerals 1 each 02/01/24 08:00 02/01/24 10:23 Vit A,C & B-Aoyxdc-Rjwddkwc 1 Each Tab PO 1 each DAILY@0800 [facility] Administration Pantoprazole Sodium 40 mg 02/01/24 05:00 02/01/24 04:42 Pantoprazole 40 Mg Tablet PO 40 mg DAILY@0500 [facility] Administration Potassium Chloride 20 meq 01/31/24 21:00 02/01/24 10:23 Potassium Chloride Er 20 Meq Tab.Er PO 20 meq BID@0800,2100 [facility] Administration Pregabalin 50 mg 01/31/24 21:00 02/01/24 14:22 Pregabalin 50 Mg Cap PO 50 mg TID@0800,1300,2100 [facility] Administration Sacubitril/Valsartan 1 each 02/01/24 09:00 02/01/24 10:32 Sacubitril/Valsartan 24 Mg-26 Mg Tablet PO 1 each BID [facility] Administration Spironolactone 25 mg 02/01/24 09:00 02/01/24 10:23 Spironolactone 25 Mg Tab PO 25 mg DAILY [facility] Administration Thiamine HCl 100 mg 02/01/24 08:00 02/01/24 10:23 Thiamine 100 Mg Tab PO 100 mg DAILY@0800 [facility] Administration Timolol Maleate 1 drops 01/31/24 21:00 02/01/24 04:42 Timolol 0.5% Ophth Drops 5 Ml Btl BOTH EYES 1 drops BID@0500,2100 [facility] Administration Intake and Output 02/01/24 02/01/24 02/01/24 06:59 14:59 22:59 Other: Voiding Method External Catheter External Catheter # Voids 2 # Bowel Movements 1 1 Weight 72.5 kg 72.5 kg Patient Weight 02/02/24 06:59 Weight 72.5 kg 02/01/24 07:58 02/01/24 07:58
[2024-02-02] MEDS: METOPROLOL SUCCINATE (ER) 25 MG TAB.ER.24H PO SCH (07:40)
[2024-02-02] MEDS ORDERED: ZINC OXIDE PASTE (Z-GUARD) 1 APPLIC TOPICAL PRN (08:51)
--- NOTE | 2024-02-02 12:49 | CT ---
CTA CHEST EXAMINATION TYPE: CT chest angio for PE DATE OF EXAM: 02/02/2024 INDICATION: r/o PE. dyspnea CT DLP: 401.8 mGycm, Automated exposure control for dose reduction was used. CONTRAST: Patient injected with 100ml mL of Isovue 370. COMPARISON: TECHNIQUE: CT of the chest is performed on a spiral scan at 2 mm thick sections. Study is performed with intravenous contrast timed for evaluation for pulmonary embolism. This will limit additional po rtions of the evaluation. 3-D MIP images reconstructed by the technologist are reviewed on the compu ter in the coronal and sagittal planes. FINDINGS: No persistent filling defects are evident to suggest an acute pulmonary embolism. No mediastinal or hilar adenopathy enlarged by CT criteria is evident. The ascending aorta diameter at the level of the main pulmonary artery is 3.0 cm. The main pulmonary artery diameter at the bifurcation is 3.1 cm. Coronary artery calcifications likely present. Small pleural effusions are present. There appears to be compressive atelectasis at the left lung bas e. There is elevation of the left diaphragm. Large diaphragm defect may be present with herniation of the stomach into this region Limited CT sections were through the upper abdomen. Upper abdomen appears unremarkable. IMPRESSION: 1. No acute pulmonary embolism. 2. 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 3. Small bilateral pleural effusions. Compressive atelectasis is likely present at the left lung base .
--- NOTE | 2024-02-02 13:32 | P.PN ---
Subjective Progress Note Date: 02/02/24 HISTORY OF PRESENT ILLNESS: 88-year-old female well-known for 3 years was seen by our practice up to March 2022 where patient was hospitalized finally one of the long-term care facility close to [facility]. Patient apparently was sent from [facility] to [facility] emergency room because of worsening in excess patient not symptom of congestive heart failure without successful treatment at her local hospital. She was having quite dyspnea, shortness of breath, PND and orthopnea with mild palpitation no anginal symptoms, she has been retaining slight bit more fluid. Apparently beside her symptom has been having significant cough mostly dry with slight sputum production and worsening picture on the chest x-ray consistent with mostly congestive heart failure with? Of consolidation. CT of the chest was positive for congestive heart failure and large left diaphragmatic hernia containing stomach and large part of her bowel. Question of infiltrate in the bases. Patient was giving 1 g of Rocephin along with azithromycin Lasix 40 mg Solu-Medrol 125 mg was sent apparently to [facility] for management of her heart failure. Patient was to be kept on 2 L of O2 and her lab value showed leukocytosis at 22.3 BNP was 5460 procalcitonin was 2.7 02/01/2024: Patient level be done this morning along with chest x-ray, will continue Lasix 40 mg IV twice a day along with Aldactone 25 mg daily also. Amlodipine completely and initiate patient on Entresto smaller dose awaiting for the final echocardiogram. Also continue to treat patient bilateral pneumonia with antibiotics continue updraft treatment continue supportive care with oxygen if needed. Patient complains seems to be little bit better continue to watch patient's I's and O's. 02/02/2024: Continue treatment for combination of acute respiratory failure, mild to moderate preserved heart failure ejection fraction, large hiatal hernia, also community-acquired pneumonia on antibiotics. Patient seen cardiology agree with adjustment of the Lasix 40 mg IV twice a day along with Aldactone, Entresto and metoprolol. Continue to watch patient electrolyte and kidney function test at this time. Patient seems to do slightly better with medication, will continue O2 and continue supportive care as well. She is continue to have dyspnea out of the normal, ordered CT of the lung if negative will initiate dexamethasone this is still combination of pneumonia along with very large hiatal hernia in the left side occupying almost half of the lung causing worsening shortness of breath. I had a long discussion with the guardian who is Laureen the niece and she is in [place] currently with family explained to her was going on Mrs. Gilmore explained to her the testing and the possibility that Mrs. Gilmore might be back into her assisted living/long-term in the next 48 hours. REVIEW OF SYSTEMS: CONSTITUTIONAL: Well-developed elderly with mild scoliosis and mild respiratory distress. EYES: No icterus sclerae, no conjunctivitis. EARS, NOSE, MOUTH, THROAT, and FACE: No sore throat, lymphadenopathy, carotid bruits or deformity. RESPIRATORY: Positive shortness of breath and cough with mild wheezes. CARDIOVASCULAR: Positive PND orthopnea palpitation no angina. GASTROINTESTINAL: No Abd pain, Nausea or vomiting, no Diarrhea or constipation, No GI Bleed, no distention or masses. GENITOURINARY: Negative for Hematuria or UTI, no kidney stones. Slight decrease in urine output. INTEGUMENT/BREAST: Generalized back muscle pain. HEMATOLOGIC/LYMPHATIC: Chronic anemia with no sign of bleeding. MUSCULOSKELTAL: Negative for Myalgia or arthralgia. NEURLOGICAL: Alert with slight confusion no blurred vision moving all her extremities. BEHAVIORAL/PSYCH: Negative. Worsening confusion and memory. ENDOCRINE: Negative. PHYSICAL EXAMINATION: General Appearance: Alert, cooperative, slight confusion mild cough with slight dyspnea. Neck HEENT: Supple, no lymphadenopathy, no thyroid enlargement, no carotid bruits. Lungs: Decreased breath sound bilaterally with fine rhonchi with crackles in the bases but has mild expiratory wheezes. Chest Wall: Decreased expansion with deep inspiration no tenderness and no deformity was found on exam, no costochondral pain or discomfort. Heart: Regular rate and rhythm, S1, S2 positive JVD with positive S3 with PVCs and systolic murmur. Back: Significant scoliosis with kyphosis with mild CVS tenderness. Abdomen: Soft, non-tender, bowel sounds active all four quadrants, no masses, no organomegaly. Extremities: Extremities normal, atraumatic, 1+ edema. Pulses: 2+ and symmetric. Skin: Skin color, texture, tugor normal, no rashes or lesions. Neurologic: Alert oriented with slight confusion. cranial nerves II through XII intact, positive generalized weakness with no abnormal balance and gait. ASSESSMENT AND PLAN: _Severe dyspnea and shortness of breath: Combination of congestive heart failure exacerbation along with bilateral pneumonia and mild fluid overload. Slightly with worsening dyspnea today order CTA try to see if patient have any pulmonary embolism. _Congestive heart failure exacerbation: Echocardiogram was performed shows ejection fraction of 65 to 70% with left ventricular wall thickness normal left ventricular cavity size is normal. So this is well-preserved diastolic dysfunction congestive heart failure and with the adjustment of medication patient is able to tolerate with probably will do well his blood pressure is little bit low might reduce Entresto to half the dose. _Bilateral pneumonia: This is could be labeled as gram-negative pneumonia especially with patient's current condition and the high risk for aspiration. She is still on Rocephin along with azithromycin and seems to respond very well to it continue updraft treatment with albuterol/ipratropium also continue Pulmicort. _ Worsening COPD: Probably reactive airway/asthma/occupy part of the lung all acting as a COPD or chronic bronchitis causing her symptoms to be worse. Patient remain on DuoNeb along with Pulmicort we will add dexamethasone today and still on antibiotics. _History of heart block post pacemaker. Doing well with it. _History of A-fib with good pulse rate controlled lately. Still on metoprolol tartrate 25 mg daily. Not on any anticoagulation. _Hypertension: With the change in medication that off amlodipine and continue metoprolol and Entresto blood pressure is better controlled. _Dementia: Mostly Alzheimer disease with small vessel disease will continue current management. _Large hiatal hernia with big part of her stomach and part of the duodenum herniated above the diaphragmatic, but she is not able to go on any advanced management still currently on proton pump have returned watch for portion. Not quite sure if this is a big part of the shortness of breath patient has unsure when she had a large meal specially late in the evening and lay down with a hiatal hernia with be part of the stomach above the diaphragm has big impact on affecting patient causing more shortness of breath. In general the large hiatal hernia might be responsible for some of the shortness of breath patient might be suffering from at this point. _Chronic neuropathy: Mostly peripheral has been on Lyrica 50 mg 3 times a day. _GI prophylaxis: Remain on pantoprazole. Prognosis: Fair. Discharge planning: Patient will be going for CTA to exclude possibility of pulmonary embolism, being more aggressive with her lung management today and long discussion with the family with update on her condition. Expect probably transfer back to her assisted living around Saturday. Objective - Vital Signs Vital signs: Vital Signs Temp 97.4 F L 02/02/24 02:25 Pulse 60 02/02/24 02:25 Resp 18 02/02/24 02:25 BP 116/60 02/02/24 02:25 Pulse Ox 97 02/02/24 02:25 FiO2 Intake & Output 02/01/24 02/02/24 02/02/24 18:59 06:59 18:59 Output Total 450 Balance -450 Weight 72.5 kg 72 kg Output: Urine 450 Other: Voiding Method External Catheter External Catheter # Bowel Movements 1 - Labs CBC & Chem 7: 02/01/24 07:58 02/01/24 07:58 Labs: Abnormal Lab Results - Last 24 Hours (Table) 02/01/24 02/01/24 Range/Units 07:58 07:58 WBC 22.8 H (3.8-10.6) k/uL Neutrophils # 21.4 H (1.3-7.7) k/uL Lymphocytes # 0.8 L (1.0-4.8) k/uL Carbon Dioxide 31 H (22-30) mmol/L BUN 25 H (7-17) mg/dL Glucose 125 H (74-99) mg/dL AST 43 H (14-36) U/L Microbiology - Last 24 Hours (Table) 01/31/24 21:15 Blood Culture - Preliminary Blood 01/31/24 21:30 Blood Culture - Preliminary Blood
[2024-02-02] MEDS: DEXAMETHASONE SOD PHOSPHATE 4 MG/ML 1 ML VIAL IVP SCH (14:30)
[2024-02-02] MEDS: Acetaminophen-Codeine 300-30mg TAB PO PRN (15:55)
--- NOTE | 2024-02-02 19:34 | P.PN ---
Subjective Progress Note Date: 02/02/24 Progress note February 02, 2024 Patient was evaluated at bedside this afternoon. At the time of evaluation it is noted that patient is having expiratory wheezing. She is having mild respiratory distress. Her volume status is better as compared to yesterday. BP 128/64, heart rate 60s, sinus rhythm with ventricularly paced rhythm. No reported arrhythmias on telemetry overnight CT chest shows emphysematous changes, no pulmonary embolism very small pleural effusion, compression atelectasis, large hiatal hernia. Not much pulmonary congestion. HISTORY OF PRESENTING ILLNESS 88-year-old female with past medical history of CHF, high-grade AV block with single-chamber PPM 2021, dementia, large hiatal hernia, chronic neuropathy. This time she was sent from [facility] because of worsening shortness of breath, increased fatigue and lower extremity edema. Patient has been having shortness of breath with minimal exertion, orthopnea and paroxysmal nocturnal dyspnea symptoms. She is also reporting mild palpitations. Labs showed WBC 22, hemoglobin 13, creatinine 0.7, BUN 25, BNP 14,000. This has been highest when compared to her prior levels. Troponin was negative at 0.029. LDL 129, TSH 0.5 CXR showed cardiomegaly with mild pulm congestion ECG shows ventricular paced rhythm BP 123/63, heart rate 61, REVIEW OF SYSTEMS 14 point review of system is negative except what is mentioned above in HPI. PHYSICAL EXAMINATION Vital signs reviewed. Head: Normocephalic. Eyes: Sclerae nonicteric. Neck: Brisk carotid upstroke, no jugular venous distention. Lungs: Clear to auscultation. Heart: Regular rate and rhythm, S1-S2, no S3, no murmur or rub. Abdomen: Soft nontender, positive bowel sounds. Extremities: No edema, intact distal pulses. Neuro: Alert, oritented, no focal deficits. Detailed neuro exam was not performed. 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 In past there has been no documented atrial fibrillation therefore she has not been on anticoagulation since. She has a single-chamber pacemaker PLAN PPM interrogation to see if patient has atrial fibrillation however it might be difficult to yeild useful infromation as patient only has single-chamber PPM Transition IV Lasix to p.o. Bumex 1 mg daily Continue Aldactone 25 mg, Entresto 24 /26 mg twice daily, metoprolol XL 25 mg da clarisa Patient is significantly wheezy this morning. Communicated the findings with the nurse who will notify the primary rounding team for consideration of systemic steroids, inhaled corticosteroids and breathing treatment. Monitor renal functions, electrolytes IV antibiotics for pneumonia Objective - Vital Signs Vital signs: Vital Signs Temp 97.0 F L 02/02/24 13:18 Pulse 59 L 02/02/24 13:18 Resp 16 02/02/24 13:18 BP 128/64 02/02/24 13:18 Pulse Ox 95 02/02/24 13:18 FiO2 Intake & Output 02/02/24 02/02/24 02/03/24 06:59 18:59 06:59 Output Total 450 Balance -450 Weight 72 kg Output: Urine 450 Other: Voiding Method External Catheter External Catheter # Bowel Movements 2 - Labs CBC & Chem 7: 02/01/24 07:58 02/01/24 07:58 Labs: Microbiology - Last 24 Hours (Table) 01/31/24 21:15 Blood Culture - Preliminary Blood 01/31/24 21:30 Blood Culture - Preliminary Blood
[2024-02-03 07:05] LABS: Basophils % (A) 0 %; Eosinophils % (A) 0 %; HCT 41.1 % (34.0-46.0); HGB 12.5 gm/dL (11.4-16.0); Lymphocytes % (A) 9 %; MCH 29.1 pg (25.0-35.0); MCHC 30.4 g/dL (31.0-37.0); MCV 95.5 fL (80.0-100.0); Mean Platelet Volume 8.9; Monocytes # (A) 0.4 k/uL (0-1.0); Monocytes % (A) 3 %; Neutrophils # (A) 10.2 k/uL (1.3-7.7); Neutrophils % (A) 88 %; Platelet Count 286 k/uL (150-450); RBC 4.31 m/uL (3.80-5.40); RDW 12.6 % (11.5-15.5); WBC 11.6 k/uL (3.8-10.6)
--- NOTE | 2024-02-03 07:45 | P.PN ---
Subjective Progress Note Date: 02/03/24 HISTORY OF PRESENT ILLNESS: 88-year-old female well-known for 3 years was seen by our practice up to March 2022 where patient was hospitalized finally one of the long-term care facility close to [facility]. Patient apparently was sent from [facility] to [facility] emergency room because of worsening in excess patient not symptom of congestive heart failure without successful treatment at her local hospital. She was having quite dyspnea, shortness of breath, PND and orthopnea with mild palpitation no anginal symptoms, she has been retaining slight bit more fluid. Apparently beside her symptom has been having significant cough mostly dry with slight sputum production and worsening picture on the chest x-ray consistent with mostly congestive heart failure with? Of consolidation. CT of the chest was positive for congestive heart failure and large left diaphragmatic hernia containing stomach and large part of her bowel. Question of infiltrate in the bases. Patient was giving 1 g of Rocephin along with azithromycin Lasix 40 mg Solu-Medrol 125 mg was sent apparently to [facility] for management of her heart failure. Patient was to be kept on 2 L of O2 and her lab value showed leukocytosis at 22.3 BNP was 5460 procalcitonin was 2.7 02/01/2024: Patient level be done this morning along with chest x-ray, will continue Lasix 40 mg IV twice a day along with Aldactone 25 mg daily also. Amlodipine completely and initiate patient on Entresto smaller dose awaiting for the final echocardiogram. Also continue to treat patient bilateral pneumonia with antibiotics continue updraft treatment continue supportive care with oxygen if needed. Patient complains seems to be little bit better continue to watch patient's I's and O's. 02/02/2024: Continue treatment for combination of acute respiratory failure, mild to moderate preserved heart failure ejection fraction, large hiatal hernia, also community-acquired pneumonia on antibiotics. Patient seen cardiology agree with adjustment of the Lasix 40 mg IV twice a day along with Aldactone, Entresto and metoprolol. Continue to watch patient electrolyte and kidney function test at this time. Patient seems to do slightly better with medication, will continue O2 and continue supportive care as well. She is continue to have dyspnea out of the normal, ordered CT of the lung if negative will initiate dexamethasone this is still combination of pneumonia along with very large hiatal hernia in the left side occupying almost half of the lung causing worsening shortness of breath. I had a long discussion with the guardian who is Laureen the niece and she is in [place] currently with family explained to her was going on Mrs. Gilmore explained to her the testing and the possibility that Mrs. Gilmore might be back into her assisted living/snf in the next 48 hours. 02/03/2024: She is doing slightly better continue to have significant shortness of breath, her diastolic heart failure management is optimized at this point patient was started on some steroid for her shortness of breath and dyspnea no solution for her large hiatal hernia at this point. CTA left yesterday came back negative for pulmonary embolism. Will consult pulmonary also consult physical therapy for possible PT and rehab she will be going back to her long-term care hopefully tomorrow if she is stable. REVIEW OF SYSTEMS: CONSTITUTIONAL: Well-developed elderly with mild scoliosis and mild respiratory distress. EYES: No icterus sclerae, no conjunctivitis. EARS, NOSE, MOUTH, THROAT, and FACE: No sore throat, lymphadenopathy, carotid bruits or deformity. RESPIRATORY: Positive shortness of breath and cough with mild wheezes. CARDIOVASCULAR: Positive PND orthopnea palpitation no angina. GASTROINTESTINAL: No Abd pain, Nausea or vomiting, no Diarrhea or constipation, No GI Bleed, no distention or masses. GENITOURINARY: Negative for Hematuria or UTI, no kidney stones. Slight decrease in urine output. INTEGUMENT/BREAST: Generalized back muscle pain. HEMATOLOGIC/LYMPHATIC: Chronic anemia with no sign of bleeding. MUSCULOSKELTAL: Negative for Myalgia or arthralgia. NEURLOGICAL: Alert with slight confusion no blurred vision moving all her extremities. BEHAVIORAL/PSYCH: Negative. Worsening confusion and memory. ENDOCRINE: Negative. PHYSICAL EXAMINATION: General Appearance: Alert, cooperative, slight confusion mild cough with slight dyspnea. Neck HEENT: Supple, no lymphadenopathy, no thyroid enlargement, no carotid bruit s. Lungs: Decreased breath sound bilaterally with fine rhonchi with crackles in the bases but has mild expiratory wheezes. Chest Wall: Decreased expansion with deep inspiration no tenderness and no de formity was found on exam, no costochondral pain or discomfort. Heart: Regular rate and rhythm, S1, S2 positive JVD with positive S3 with PVCs and systolic murmur. Back: Significant scoliosis with kyphosis with mild CVS tenderness. Abdomen: Soft, non-tender, bowel sounds active all four quadrants, no masses, no organomegaly. Extremities: Extremities normal, atraumatic, 1+ edema. Pulses: 2+ and symmetric. Skin: Skin color, texture, tugor normal, no rashes or lesions. Neurologic: Alert oriented with slight confusion. cranial nerves II through XII intact, positive generalized weakness with no abnormal balance and gait. ASSESSMENT AND PLAN: _Severe dyspnea and shortness of breath: Combination of congestive heart failure exacerbation along with bilateral pneumonia and mild fluid overload. Still have slight shortness of breath CTA came back negative for PE will consult pulmonary continue management for COPD and continue steroid along with updraft. _Congestive heart failure exacerbation: Echocardiogram was performed shows ejection fraction of 65 to 70% with left ventricular wall thickness normal left ventricular cavity size is normal. So this is well-preserved diastolic dysfunction congestive heart failure and with the adjustment of medication patient is able to tolerate with probably will do well his blood pressure is little bit low might reduce Entresto to half the dose. _Bilateral pneumonia: This is could be labeled as gram-negative pneumonia especially with patient's current condition and the high risk for aspiration. She is still on Rocephin along with azithromycin and seems to respond very well to it continue updraft treatment with albuterol/ipratropium also continue Pulmicort. Consult pulmonary. _ Worsening COPD: Probably reactive airway/asthma/occupy part of the lung all acting as a COPD or chronic bronchitis causing her symptoms to be worse. Patient remain on DuoNeb along with Pulmicort we will add dexamethasone today and still on antibiotics. _History of heart block post pacemaker. Functioning well and doing well still seeing cardiology. _History of A-fib with good pulse rate controlled lately. Still on metoprolol tartrate 25 mg daily. Not on any anticoagulation. _Hypertension: With the change in medication that off amlodipine and continue metoprolol and Entresto blood pressure is better controlled. _Dementia: Mostly Alzheimer disease with small vessel disease will continue current management. _Large hiatal hernia with big part of her stomach and part of the duodenum herniated above the diaphragmatic, but she is not able to go on any advanced management still currently on proton pump have returned watch for portion. Not quite sure if this is a big part of the shortness of breath patient has unsure when she had a large meal specially late in the evening and lay down with a hia allison hernia with be part of the stomach above the diaphragm has big impact on affecting patient causing more shortness of breath. In general the large hiatal hernia might be responsible for some of the shortness of breath patient might be suffering from at this point. _Chronic neuropathy: Mostly peripheral has been on Lyrica 50 mg 3 times a day. _GI prophylaxis: Remain on pantoprazole. Prognosis: Fair. Discharge planning: CTA was negative, PT consult consult pulmonary patient is doing better tomorrow might be able to return to her long care facility. Objective - Vital Signs Vital signs: Vital Signs Temp 97.8 F 02/03/24 00:18 Pulse 61 02/03/24 00:18 Resp 20 02/03/24 00:18 BP 108/65 02/03/24 00:18 Pulse Ox 95 02/03/24 00:18 FiO2 Intake & Output 02/02/24 02/02/24 02/03/24 06:59 18:59 06:59 Output Total 450 900 Balance -450 -900 Weight 72 kg Output: Urine 450 900 Other: Voiding Method External Catheter External Catheter External Catheter # Bowel Movements 2 - Labs CBC & Chem 7: 02/03/24 06:13 02/01/24 07:58 Labs: Microbiology - Last 24 Hours (Table) 01/31/24 21:15 Blood Culture - Preliminary Blood 01/31/24 21:30 Blood Culture - Preliminary Blood
[2024-02-03] MEDS: BUMETANIDE 1 MG TAB PO SCH (08:44)
[2024-02-03 08:57] LABS: ALT 14 U/L (8-44); AST 19 U/L (13-35); Albumin 3.3 g/dL (3.8-4.9); Alkaline Phosphatase 81 U/L (41-126); BUN/Creat Ratio 49.57 Ratio (12.00-20.00); Blood Urea Nitrogen 34.7 mg/dL (9.0-27.0); Calcium 8.4 mg/dL (8.7-10.3); Carbon Dioxide 31.9 mmol/L (21.6-31.8); Chloride 99 mmol/L (96-109); Globulin 3.3 g/dL (1.6-3.3); Glucose 124 mg/dL (70-110); Potassium 5.3 mmol/L (3.5-5.5); Sodium 140 mmol/L (135-145); Total Bilirubin <0.2 mg/dL (0.3-1.2); Total Protein 6.6 g/dL (6.2-8.2)
[2024-02-03] MEDS ORDERED: TORSEMIDE 20 MG TAB PO SCH (09:00)
--- NOTE | 2024-02-03 12:09 | P.PN ---
Subjective Progress Note Date: 02/03/24 HISTORY OF PRESENTING ILLNESS 88-year-old female with past medical history of CHF, high-grade AV block with single-chamber PPM 2021, dementia, large hiatal hernia, chronic neuropathy. This time she was sent from [facility] because of worsening shortness of breath, increased fatigue and lower extremity edema. Patient has been having shortness of breath with minimal exertion, orthopnea and paroxysmal nocturnal dyspnea symptoms. She is also reporting mild palpitations. Labs showed WBC 22, hemoglobin 13, creatinine 0.7, BUN 25, BNP 14,000. This has been highest when compared to her prior levels. Troponin was negative at 0.029. LDL 129, TSH 0.5 CXR showed cardiomegaly with mild pulm congestion ECG shows ventricular paced rhythm BP 123/63, heart rate 61, February 02, 2024 Patient was evaluated at bedside this afternoon. At the time of evaluation it is noted that patient is having expiratory wheezing. She is having mild respiratory distress. Her volume status is better as compared to yesterday. BP 128/64, heart rate 60s, sinus rhythm with ventricularly paced rhythm. No reported arrhythmias on telemetry overnight CT chest shows emphysematous changes, no pulmonary embolism very small pleural effusion, compression atelectasis, large hiatal hernia. Not much pulmonary congestion. 02/02 Patient continues to have some shortness of breath but possibly improved. Symptoms seem to be more related to COPD versus heart failure at this point. Yesterday, IV Lasix was transitioned to Bumex oral 1 mg daily and plan to continue patient on Aldactone, Entresto and metoprolol XL. Patient continues to have some mild wheezing. Lower extremity edema has resolved. Blood pressure 124/57, heart rate 60, pulse ox 97% on 3 L nasal cannula. PHYSICAL EXAMINATION Vital signs reviewed. Head: Normocephalic. Eyes: Sclerae nonicteric. Neck: Brisk carotid upstroke, no jugular venous distention. Lungs: Clear to auscultation. Heart: Regular rate and rhythm, S1-S2, no S3, no murmur or rub. Abdomen: Soft nontender, positive bowel sounds. Extremities: No edema, intact distal pulses. Neuro: Alert, oritented, no focal deficits. Detailed neuro exam was not performed. 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 In past there has been no documented atrial fibrillation therefore she has not been on anticoagulation since. She has a single-chamber pacemaker PLAN PPM interrogation requested today Continue p.o. Bumex 1 mg daily, Aldactone 25 mg, Entresto 24 /26 mg twice daily, metoprolol XL 25 mg daily Monitor renal functions, electrolytes IV antibiotics for pneumonia Nurse practitioner note has been reviewed, I agree with documented findings and plan of care. Patient was seen and examined. Objective - Vital Signs Vital signs: Vital Signs Temp 97.7 F 02/03/24 07:48 Pulse 60 02/03/24 07:48 Resp 19 02/03/24 07:48 BP 124/57 02/03/24 07:48 Pulse Ox 97 02/03/24 07:48 FiO2 Intake & Output 02/02/24 02/03/24 02/03/24 18:59 06:59 18:59 Output Total 1200 Balance -1200 Weight 79.5 kg Output: Urine 1200 Other: Voiding Method External Catheter External Catheter # Bowel Movements 2 - Labs CBC & Chem 7: 02/03/24 06:13 02/03/24 05:52 Labs: Abnormal Lab Results - Last 24 Hours (Table) 02/03/24 02/03/24 Range/Units 05:52 06:13 WBC 11.6 H (3.8-10.6) k/uL MCHC 30.4 L (31.0-37.0) g/dL Neutrophils # 10.2 H (1.3-7.7) k/uL Carbon Dioxide 31.9 H (21.6-31.8) mmol/L BUN 34.7 H (9.0-27.0) mg/dL BUN/Creatinine Ratio 49.57 H (12.00-20.00) Ratio Glucose 124 H (70-110) mg/dL Calcium 8.4 L (8.7-10.3) mg/dL Total Bilirubin <0.2 L (0.3-1.2) mg/dL Albumin 3.3 L (3.8-4.9) g/dL Albumin/Globulin Ratio 1.00 L (1.60-3.17) Ratio Microbiology - Last 24 Hours (Table) 01/31/24 21:15 Blood Culture - Preliminary Blood 01/31/24 21:30 Blood Culture - Preliminary Blood
--- NOTE | 2024-02-03 14:17 | P.CNPUL ---
History of Present Illness Consult date: 02/03/24 Requesting physician: Tima Longo Reason for consult: COPD, abnormal CXR/CT Chief complaint: Shortness of breath, cough, congestion History of present illness: This is a 88-year-old female patient who resides in an extended care facility and was transferred to [facility] originally for concerns with shortness of breath cough congestion. She was subsequently transferred here for further care back on 01/31/2024. X-ray shows left lower lobe infiltrate with minimal right pleural effusion. CT angiogram ruled out pulmonary embolism. There is pragmatic hernia with herniation of stomach into the left lower thoracic region. Small bilateral pleural effusions. Compressive atelectasis in the left lung base. White count 11.6. Hemoglobin 12.5. Platelets 286. Sodium 140. Potassium 5.3. Bicarb 32. BUN 35. Creatinine 0.7. Glucose 124. Procalcitonin 6.76. proBNP 14,000. She is seen today in consultation on the regular medical floor. She is awake and alert in no acute distress. Resting comfortably in bed. Maintaining O2 saturations in the 90s on 3 L/min per nasal cannula. She has normal saline at KVO. She is treated with ceftriaxone and azithromycin. Review of Systems REVIEW OF SYSTEMS: CONSTITUTIONAL: Denies any recent significant weight loss or weight gain. EYES: Denies change in vision. EARS, NOSE, MOUTH, THROAT: Denies headaches, denies sore throat. CARDIOVASCULAR: Denies chest pain, palpitations or syncopal episodes. RESPIRATORY: Positive for shortness of breath, cough, congestion no hemoptysis. GASTROINTESTINAL: Denies change in appetite, denies abdominal pain GENITOURINARY: Denies hematuria, denies infections. MUSKULOSKELETAL: Denies pain, denies swelling. INTEGUMENTARY: Denies rash, denies eczema. NEUROLOGICAL: Denies recent memory loss, no recent seizure activity. PSYCHIATRIC: Denies anxiety, denies depression. HEMATOLOGIC/LYMPHATIC: Denies anemia, denies enlarged lymph nodes. Past Medical History Past Medical History: Eye Disorder, GERD/Reflux, Hypertension, Osteoarthritis (OA) Additional Past Medical History / Comment(s): cellulitis and glaucoma. Hiatal hernia History of Any Multi-Drug Resistant Organisms: None Reported Past Surgical History: Appendectomy, Tonsillectomy Additional Past Surgical History / Comment(s): Left Hip Replacement Past Anesthesia/Blood Transfusion Reactions: No Reported Reaction Past Psychological History: No Psychological Hx Reported Smoking Status: Never smoker Past Alcohol Use History: Occasional Past Drug Use History: None Reported - Past Family History Father Family Medical History: Unable to Obtain Mother Family Medical History: Unable to Obtain Medications and Allergies Home Medications Medication Instructions Recorded Confirmed Type Acetaminophen [Tylenol] 650 mg PO Q4H PRN 11/10/21 01/31/24 History Latanoprost/Pf [Latanoprost 0.005% 1 drop BOTH EYES HS 11/10/21 01/31/24 History Eye Drop] Magnesium Hydroxide [Milk of 7,200 mg PO DAILY PRN 11/10/21 01/31/24 History Magnesia Concentrate] Ocular Vitamin Tablet 1 tab PO DAILY@0800 11/10/21 01/31/24 History Acetaminophen Tab [Tylenol] 650 mg PO TID@0800,1300,2100 01/31/24 01/31/24 History Albuterol Nebulized [Ventolin 2.5 mg INHALATION RT-Q4H PRN 01/31/24 01/31/24 History Nebulized] Artificial Tears-Hypromellose 2 drops BOTH EYES Q4H PRN 01/31/24 01/31/24 History [Artificial Tear Drops] Budesonide [Pulmicort] 0.5 mg INHALATION RT-Q6H PRN 01/31/24 01/31/24 History Cyanocobalamin (Vitamin B-12) 1,000 mcg PO DAILY@0800 01/31/24 01/31/24 History [Vitamin B-12] Furosemide [Lasix] 20 mg PO DAILY@1300 01/31/24 01/31/24 History Furosemide [Lasix] 80 mg PO DAILY@0801/31/24 01/31/24 History Ipratropium-Albuterol Nebulize 3 ml INHALATION RT-Q6H PRN 01/31/24 01/31/24 History [Duoneb 0.5 mg-3 mg/3 ml Soln] Liquacel 30 ml PO BID 01/31/24 01/31/24 History Metoprolol Tartrate [Lopressor] 25 mg PO DAILY@0800 01/31/24 01/31/24 History Omeprazole Magnesium [PriLOSEC OTC] 20 mg PO DAILY@0500 01/31/24 01/31/24 History Potassium Chloride ER [K-Dur 20] 20 meq PO BID@0800,2100 01/31/24 01/31/24 History Pregabalin [Lyrica] 50 mg PO TID@0800,1300,209901/31/24 01/31/24 History Thiamine [Vitamin B-1] 100 mg PO DAILY@0800 01/31/24 01/31/24 History Timolol 0.5% Ophth Soln (Pf) 1 drop BOTH EYES BID@0500,209901/31/24 01/31/24 History [Timoptic 0.5% Ocudose] amLODIPine [Norvasc] 5 mg PO DAILY@0800 01/31/24 01/31/24 History bisacodyL [Dulcolax] 10 mg RECTAL Q72H PRN 01/31/24 01/31/24 History guaiFENesin [guaiFENesin Oral 200 mg PO Q4H PRN 01/31/24 01/31/24 History Solution] Allergies Allergy/AdvReac Type Severity Reaction Status Date / Time No Known Allergies Allergy Verified 01/31/24 19:22 Physical Exam Vitals: Vital Signs Temp Pulse Resp BP Pulse Ox 02/03/24 09:32 97 02/03/24 08:30 60 19 02/03/24 07:48 97.7 F 60 19 124/57 97 02/03/24 00:18 97.8 F 61 20 108/65 95 02/02/24 19:33 98.3 F 61 17 139/67 97 Intake and Output 02/02/24 02/03/24 02/03/24 22:59 06:59 14:59 Output Total 900 300 Balance -900 -300 Output: Urine 900 300 Other: Voiding Method External Catheter External Catheter # Bowel Movements 2 Weight 79.5 kg GENERAL EXAM: Alert, pleasant 88-year-old female, on 3 L, resting in bed, comfortable in no apparent distress. HEAD: Normocephalic. EYES: Normal reaction of pupils, equal size. NOSE: Clear with pink turbinates. THROAT: No erythema or exudates. NECK: No masses, no JVD. CHEST: No chest wall deformity. LUNGS: Equal air entry with bibasilar crackles s. CVS: S1 and S2 normal with no audible murmur, regular rhythm. ABDOMEN: No hepatosplenomegaly, normal bowel sounds, no guarding or rigidity. SPINE: No scoliosis or deformity SKIN: No rashes CENTRAL NERVOUS SYSTEM: No focal deficits, tone is normal in all 4 extremities. EXTREMITIES: There is no peripheral edema. No clubbing, no cyanosis. Peripheral pulses are intact. Results - Laboratory Findings CBC and BMP: 02/03/24 06:13 02/03/24 05:52 Abnormal lab findings: Abnormal Labs 02/01/24 02/01/24 02/03/24 07:58 07:58 05:52 WBC 22.8 H MCHC Neutrophils # 21.4 H Lymphocytes # 0.8 L Carbon Dioxide 31 H 31.9 H BUN 25 H 34.7 H BUN/Creatinine Ratio 49.57 H Glucose 125 H 124 H Calcium 8.4 L Total Bilirubin <0.2 L AST 43 H Albumin 3.3 L Albumin/Globulin Ratio 1.00 L Procalcitonin 02/03/24 02/03/24 05:52 06:13 WBC 11.6 H MCHC 30.4 L Neutrophils # 10.2 H Lymphocytes # Carbon Dioxide BUN BUN/Creatinine Ratio Glucose Calcium Total Bilirubin AST Albumin Albumin/Globulin Ratio Procalcitonin 6.76 H - Diagnostic Findings Chest x-ray: image reviewed CT scan - chest: image reviewed Assessment and Plan Assessment: Acute hypoxemic respiratory failure secondary to an acute exacerbation of diastolic congestive heart failure and COPD exacerbation with suspected healthcare acquired pneumonia Of diastolic congestive heart failure History of chronic obstructive pulmonary disease Hypertension Hyperlipidemia Large hiatal hernia History of dementia residing in extended-care facility Chronic neuropathy History of permanent pacemaker Poor overall functional performance based on the above-mentioned supple comorbidities Plan: The patient was seen and evaluated Chest x-ray, CT angiogram, labs and medications reviewed Continue ceftriaxone and azithromycin Continue bronchodilators and steroids Continue diuretics Titrate down the FiO2 as tolerated We will continue to follow and make further recommendations based on her clinical status I have personally seen and examined the patient, performed the documentation and the assessment and plan as written. Number of minutes spent on the visit: 20.
--- NOTE | 2024-02-04 07:58 | P.PN ---
Subjective Progress Note Date: 02/04/24 HISTORY OF PRESENT ILLNESS: 88-year-old female well-known for 3 years was seen by our practice up to March 2022 where patient was hospitalized finally one of the long-term care facility close to [facility]. Patient apparently was sent from [facility] to [facility] emergency room because of worsening in excess patient not symptom of congestive heart failure without successful treatment at her local hospital. She was having quite dyspnea, shortness of breath, PND and orthopnea with mild palpitation no anginal symptoms, she has been retaining slight bit more fluid. Apparently beside her symptom has been having significant cough mostly dry with slight sputum production and worsening picture on the chest x-ray consistent with mostly congestive heart failure with? Of consolidation. CT of the chest was positive for congestive heart failure and large left diaphragmatic hernia containing stomach and large part of her bowel. Question of infiltrate in the bases. Patient was giving 1 g of Rocephin along with azithromycin Lasix 40 mg Solu-Medrol 125 mg was sent apparently to [facility] for management of her heart failure. Patient was to be kept on 2 L of O2 and her lab value showed leukocytosis at 22.3 BNP was 5460 procalcitonin was 2.7 02/01/2024: Patient level be done this morning along with chest x-ray, will continue Lasix 40 mg IV twice a day along with Aldactone 25 mg daily also. Amlodipine completely and initiate patient on Entresto smaller dose awaiting for the final echocardiogram. Also continue to treat patient bilateral pneumonia with antibiotics continue updraft treatment continue supportive care with oxygen if needed. Patient complains seems to be little bit better continue to watch patient's I's and O's. 02/02/2024: Continue treatment for combination of acute respiratory failure, mild to moderate preserved heart failure ejection fraction, large hiatal hernia, also community-acquired pneumonia on antibiotics. Patient seen cardiology agree with adjustment of the Lasix 40 mg IV twice a day along with Aldactone, Entresto and metoprolol. Continue to watch patient electrolyte and kidney function test at this time. Patient seems to do slightly better with medication, will continue O2 and continue supportive care as well. She is continue to have dyspnea out of the normal, ordered CT of the lung if negative will initiate dexamethasone this is still combination of pneumonia along with very large hiatal hernia in the left side occupying almost half of the lung causing worsening shortness of breath. I had a long discussion with the guardian who is Laureen the niece and she is in [place] currently with family explained to her was going on Mrs. Gilmore explained to her the testing and the possibility that Mrs. Gilmore might be back into her assisted living/[facility] in the next 48 hours. 02/03/2024: She is doing slightly better continue to have significant shortness of breath, her diastolic heart failure management is optimized at this point patient was started on some steroid for her shortness of breath and dyspnea no solution for her large hiatal hernia at this point. CTA left yesterday came back negative for pulmonary embolism. Will consult pulmonary also consult physical therapy for possible PT and rehab she will be going back to her long-term care hopefully tomorrow if she is stable. 02/04/2024: She is feeling slightly better still having slight dyspnea with minimal exertion, she was seen again by pulmonary and cardiology yesterday no major change in management agree with the current plan for now try to titrate down her oxygen to a lower level, also increase activity and having patient out of bed. We should contact the school social worker and probably the plan is to get patient is ready to be discharged for more like tomorrow than today. Repeat another chest x-ray today and lab will be done to make sure the adjusted medication has not affected her kidney function. REVIEW OF SYSTEMS: CONSTITUTIONAL: Well-developed elderly with mild scoliosis and mild respiratory distress. EYES: No icterus sclerae, no conjunctivitis. EARS, NOSE, MOUTH, THROAT, and FACE: No sore throat, lymphadenopathy, carotid bruits or deformity. RESPIRATORY: Positive shortness of breath and cough with mild wheezes. CARDIOVASCULAR: Positive PND orthopnea palpitation no angina. GASTROINTESTINAL: No Abd pain, Nausea or vomiting, no Diarrhea or constipation, No GI Bleed, no distention or masses. GENITOURINARY: Negative for Hematuria or UTI, no kidney stones. Slight decrease in urine output. INTEGUMENT/BREAST: Generalized back muscle pain. HEMATOLOGIC/LYMPHATIC: Chronic anemia with no sign of bleeding. MUSCULOSKELTAL: Negative for Myalgia or arthralgia. NEURLOGICAL: Alert with slight confusion no blurred vision moving all her extremities. BEHAVIORAL/PSYCH: Negative. Worsening confusion and memory. ENDOCRINE: Negative. PHYSICAL EXAMINATION: General Appearance: Alert, cooperative, slight confusion mild cough with slight dyspnea. Neck HEENT: Supple, no lymphadenopathy, no thyroid enlargement, no carotid bruits. Lungs: Decreased breath sound bilaterally with fine rhonchi with crackles in the bases but has mild expiratory wheezes. Chest Wall: Decreased expansion with deep inspiration no tenderness and no deformity was found on exam, no costochondral pain or discomfort. Heart: Regular rate and rhythm, S1, S2 positive JVD with positive S3 with PVCs and systolic murmur. Back: Significant scoliosis with kyphosis with mild CVS tenderness. Abdomen: Soft, non-tender, bowel sounds active all four quadrants, no masses, no organomegaly. Extremities: Extremities normal, atraumatic, 1+ edema. Pulses: 2+ and symmetric. Skin: Skin color, texture, tugor normal, no rashes or lesions. Neurologic: Alert oriented with slight confusion. cranial nerves II through XII intact, positive generalized weakness with no abnormal balance and gait. ASSESSMENT AND PLAN: _Severe dyspnea and shortness of breath: Combination of congestive heart failure exacerbation along with bilateral pneumonia and mild fluid overload. Still have slight shortness of breath CTA came back negative for PE will consult pulmonary continue management for COPD and continue steroid along with updraft. _Congestive heart failure exacerbation: Echocardiogram was performed shows ejection fraction of 65 to 70% with left ventricular wall thickness normal left ventricular cavity size is normal. So this is well-preserved diastolic dysfunction congestive heart failure and with the adjustment of medication patient is able to tolerate with probably will do well his blood pressure is little bit low might reduce Entresto to half the dose. _Bilateral pneumonia: Continue IV antibiotic for another 24 hours we will switch her to oral by tomorrow. _ Worsening COPD: Continue updraft along with O2 and steroid nebulizer and prepare hopefully for prednisone orally by tomorrow as well. _History of heart block post pacemaker. Functioning well and doing well still seeing cardiology. _History of A-fib with good pulse rate controlled lately. Still on metoprolol tartrate 25 mg daily. Not on any anticoagulation. _Hypertension: With the change in medication that off amlodipine and continue metoprolol and Entresto blood pressure is better controlled. _Dementia: Mostly Alzheimer disease with small vessel disease will continue current management. _Large hiatal hernia with big part of her stomach and part of the duodenum herniated above the diaphragmatic, but she is not able to go on any advanced man agement still currently on proton pump have returned watch for portion. Not quite sure if this is a big part of the shortness of breath patient has unsure when she had a large meal specially late in the evening and lay down with a hiatal hernia with be part of the stomach above the diaphragm has big impact on affecting patient causing more shortness of breath. In general the large hiatal hernia might be responsible for some of the shortness of breath patient might be suffering from at this point. _Chronic neuropathy: Mostly peripheral has been on Lyrica 50 mg 3 times a day. _GI prophylaxis: Remain on pantoprazole. Prognosis: Fair. Discharge planning: She is seen pulmonary and cardiology has been doing slightly better continue to improve with current treatment we will keep her for another day of IV antibiotic and switch to oral by tomorrow and let her go back to her assisted living. Objective - Vital Signs Vital signs: Vital Signs Temp 98.0 F 02/04/24 02:10 Pulse 58 L 02/04/24 02:10 Resp 16 02/04/24 02:10 BP 154/71 02/04/24 02:10 Pulse Ox 99 02/04/24 02:10 FiO2 Intake & Output 02/03/24 02/04/24 02/04/24 18:59 06:59 18:59 Output Total 1800 1100 Balance -1800 -1100 Weight 75.5 kg Output: Urine 1800 1100 Other: Voiding Method External Catheter - Labs CBC & Chem 7: 02/03/24 06:13 02/03/24 05:52 Labs: Abnormal Lab Results - Last 24 Hours (Table) 02/03/24 02/03/24 Range/Units 05:52 05:52 Carbon Dioxide 31.9 H (21.6-31.8) mmol/L BUN 34.7 H (9.0-27.0) mg/dL BUN/Creatinine Ratio 49.57 H (12.00-20.00) Ratio Glucose 124 H (70-110) mg/dL Calcium 8.4 L (8.7-10.3) mg/dL Total Bilirubin <0.2 L (0.3-1.2) mg/dL Albumin 3.3 L (3.8-4.9) g/dL Albumin/Globulin Ratio 1.00 L (1.60-3.17) Ratio Procalcitonin 6.76 H (0.02-0.09) ng/mL Microbiology - Last 24 Hours (Table) 01/31/24 21:15 Blood Culture - Preliminary Blood 01/31/24 21:30 Blood Culture - Preliminary Blood
[2024-02-04 08:15] LABS: HCT 42.4 % (37.2-46.3); MCH 28.6 pg (27.0-32.0); MCHC 30.7 g/dL (32.0-37.0); MCV 93.4 FL (80.0-97.0); Mean Platelet Volume 10.9 FL (9.5-12.2); NRBC Per 100 WBC 0 X 10*3/uL (0.00-0.01); Platelet Count 318 X 10*3/uL (140-440); RBC 4.54 X 10*6/uL (4.10-5.20); RDW 12.7 % (11.5-14.5); WBC 13.05 X 10*3/uL (4.50-10.00)
[2024-02-04 08:33] LABS: ALT 13 U/L (8-44); AST 11 U/L (13-35); Albumin 3.3 g/dL (3.8-4.9); Albumin/Globulin Ratio 1.03 Ratio (1.60-3.17); Alkaline Phosphatase 74 U/L (41-126); BUN/Creat Ratio 47.29 Ratio (12.00-20.00); Blood Urea Nitrogen 33.1 mg/dL (9.0-27.0); Calcium 8.5 mg/dL (8.7-10.3); Carbon Dioxide 31.8 mmol/L (21.6-31.8); Chloride 99 mmol/L (96-109); Globulin 3.2 g/dL (1.6-3.3); Glucose 120 mg/dL (70-110); Potassium 5.4 mmol/L (3.5-5.5); Sodium 139 mmol/L (135-145); Total Bilirubin <0.2 mg/dL (0.3-1.2); Total Protein 6.5 g/dL (6.2-8.2)
--- NOTE | 2024-02-04 13:43 | P.PN ---
Subjective Progress Note Date: 02/04/24 HISTORY OF PRESENTING ILLNESS 88-year-old female with past medical history of CHF, high-grade AV block with single-chamber PPM 2021, dementia, large hiatal hernia, chronic neuropathy. This time she was sent from [facility] because of worsening shortness of breath, increased fatigue and lower extremity edema. Patient has been having shortness of breath with minimal exertion, orthopnea and paroxysmal nocturnal dyspnea symptoms. She is also reporting mild palpitations. Labs showed WBC 22, hemoglobin 13, creatinine 0.7, BUN 25, BNP 14,000. This has been highest when compared to her prior levels. Troponin was negative at 0.029. LDL 129, TSH 0.5 CXR showed cardiomegaly with mild pulm congestion ECG shows ventricular paced rhythm BP 123/63, heart rate 61, February 02, 2024 Patient was evaluated at bedside this afternoon. At the time of evaluation it is noted that patient is having expiratory wheezing. She is having mild respiratory distress. Her volume status is better as compared to yesterday. BP 128/64, heart rate 60s, sinus rhythm with ventricularly paced rhythm. No reported arrhythmias on telemetry overnight CT chest shows emphysematous changes, no pulmonary embolism very small pleural effusion, compression atelectasis, large hiatal hernia. Not much pulmonary congestion. 02/02 Patient continues to have some shortness of breath but possibly improved. Symptoms seem to be more related to COPD versus heart failure at this point. Yesterday, IV Lasix was transitioned to Bumex oral 1 mg daily and plan to continue patient on Aldactone, Entresto and metoprolol XL. Patient continues to have some mild wheezing. Lower extremity edema has resolved. Blood pressure 124/57, heart rate 60, pulse ox 97% on 3 L nasal cannula. 02/03 Patient states that her breathing status is improved today from yesterday. Blood pressure 132/81, heart rate 60, afebrile, pulse ox 96% on 3 L nasal cannula. Repeat blood work reveals WBC 13, hemoglobin 13, platelet count 318. Electrolytes are normal. Creatinine 0.7 and BUN 33. Patient is anticipating discharge home tomorrow. PHYSICAL EXAMINATION Vital signs reviewed. Head: Normocephalic. Eyes: Sclerae nonicteric. Neck: Brisk carotid upstroke, no jugular venous distention. Lungs: Clear to auscultation. Heart: Regular rate and rhythm, S1-S2, no S3, no murmur or rub. Abdomen: Soft nontender, positive bowel sounds. Extremities: No edema, intact distal pulses. Neuro: Alert, oritented, no focal deficits. Detailed neuro exam was not perf ormed. 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 In past there has been no documented atrial fibrillation therefore she has not been on anticoagulation since. She has a single-chamber pacemaker PLAN PPM interrogation requested Continue p.o. Bumex 1 mg daily, Aldactone 25 mg, Entresto 24 /26 mg twice daily, metoprolol XL 25 mg daily Monitor renal functions, electrolytes IV antibiotics for pneumonia Nurse practitioner note has been reviewed, I agree with documented findings and plan of care. Patient was seen and examined. Objective - Vital Signs Vital signs: Vital Signs Temp 97.5 F L 02/04/24 07:06 Pulse 60 02/04/24 07:06 Resp 16 02/04/24 07:06 BP 132/81 02/04/24 07:06 Pulse Ox 96 02/04/24 07:06 FiO2 Intake & Output 02/03/24 02/04/24 02/04/24 18:59 06:59 18:59 Output Total 1800 1100 Balance -1800 -1100 Weight 75.5 kg Output: Urine 1800 1100 Other: Voiding Method External Catheter - Labs CBC & Chem 7: 02/04/24 05:22 02/04/24 05:22 Labs: Abnormal Lab Results - Last 24 Hours (Table) 02/03/24 02/04/24 02/04/24 Range/Units 05:52 05:22 05:22 WBC 13.05 H (4.50-10.00) X 10*3/uL MCHC 30.7 L (32.0-37.0) g/dL BUN 33.1 H (9.0-27.0) mg/dL BUN/Creatinine Ratio 47.29 H (12.00-20.00) Ratio Glucose 120 H (70-110) mg/dL Calcium 8.5 L (8.7-10.3) mg/dL Total Bilirubin <0.2 L (0.3-1.2) mg/dL AST 11 L (13-35) U/L Albumin 3.3 L (3.8-4.9) g/dL Albumin/Globulin Ratio 1.03 L (1.60-3.17) Ratio Procalcitonin 6.76 H (0.02-0.09) ng/mL Microbiology - Last 24 Hours (Table) 01/31/24 21:15 Blood Culture - Preliminary Blood 01/31/24 21:30 Blood Culture - Preliminary Blood
--- NOTE | 2024-02-04 14:26 | P.PN ---
Subjective Progress Note Date: 02/04/24 This is a 88-year-old female patient who resides in an extended care facility and was transferred to [facility] originally for concerns with shortness of breath cough congestion. She was subsequently transferred here for further care back on 01/31/2024. X-ray shows left lower lobe infiltrate with minimal right pleural effusion. CT angiogram ruled out pulmonary embolism. There is pragmatic hernia with herniation of stomach into the left lower thoracic region. Small bilateral pleural effusions. Compressive atelectasis in the left lung base. White count 11.6. Hemoglobin 12.5. Platelets 286. Sodium 140. Potassium 5.3. Bicarb 32. BUN 35. Creatinine 0.7. Glucose 124. Procalcitonin 6.76. proBNP 14,000. She is seen today in consultation on the regular medical floor. She is awake and alert in no acute distress. Resting comfortably in bed. Maintaining O2 saturations in the 90s on 3 L/min per nasal cannula. She has normal saline at KVO. She is treated with ceftriaxone and a zithromycin. The patient is seen today February 04, 2024 in follow-up on the regular medical floor. She is currently resting comfortably in bed. Awake and alert in no acute distress. She is maintaining O2 saturations in the 90s on 3 L/min per nasal cannula. Her procalcitonin was 6.76. She is continued on ceftriaxone and azithromycin. She does have home oxygen. Blood cultures revealed no growth. White count 13.0. Hemoglobin 13.0. Sodium 139. Potassium 5.4. Bicarb 32. BUN 33. Creatinine 0.7. Glucose 120. She is continued on bronchodilators, Decadron. Objective - Vital Signs Vital signs: Vital Signs Temp 97.5 F L 02/04/24 07:06 Pulse 60 02/04/24 07:06 Resp 16 02/04/24 07:06 BP 132/81 02/04/24 07:06 Pulse Ox 96 02/04/24 07:06 FiO2 Intake & Output 02/03/24 02/04/24 02/04/24 18:59 06:59 18:59 Output Total 1800 1100 Balance -1800 -1100 Weight 75.5 kg Output: Urine 1800 1100 Other: Voiding Method External Catheter External Catheter - Exam GENERAL EXAM: Alert, 88-year-old female, on 3 L nasal cannula, sitting up in bed, in no apparent distress. HEAD: Normocephalic. EYES: Normal reaction of pupils, equal size. NOSE: Clear with pink turbinates. THROAT: No erythema or exudates. NECK: No masses, no JVD. CHEST: No chest wall deformity. LUNGS: Equal air entry with bibasilar crackles. CVS: S1 and S2 normal with no audible murmur, regular rhythm. ABDOMEN: No hepatosplenomegaly, normal bowel sounds, no guarding or rigidity. SPINE: No scoliosis or deformity SKIN: No rashes CENTRAL NERVOUS SYSTEM: No focal deficits, tone is normal in all 4 extremities. EXTREMITIES: There is no peripheral edema. No clubbing, no cyanosis. Peripheral pulses are intact. - Labs CBC & Chem 7: 02/04/24 05:22 02/04/24 05:22 Labs: Abnormal Lab Results - Last 24 Hours (Table) 02/04/24 02/04/24 Range/Units 05:22 05:22 WBC 13.05 H (4.50-10.00) X 10*3/uL MCHC 30.7 L (32.0-37.0) g/dL BUN 33.1 H (9.0-27.0) mg/dL BUN/Creatinine Ratio 47.29 H (12.00-20.00) Ratio Glucose 120 H (70-110) mg/dL Calcium 8.5 L (8.7-10.3) mg/dL Total Bilirubin <0.2 L (0.3-1.2) mg/dL AST 11 L (13-35) U/L Albumin 3.3 L (3.8-4.9) g/dL Albumin/Globulin Ratio 1.03 L (1.60-3.17) Ratio Microbiology - Last 24 Hours (Table) 01/31/24 21:15 Blood Culture - Preliminary Blood 01/31/24 21:30 Blood Culture - Preliminary Blood Assessment and Plan Assessment: Acute hypoxemic respiratory failure secondary to an acute exacerbation of diastolic congestive heart failure and COPD exacerbation with suspected healthcare acquired pneumonia History of diastolic congestive heart failure History of chronic obstructive pulmonary disease Hypertension Hyperlipidemia Large hiatal hernia History of dementia residing in extended-care facility Chronic neuropathy History of permanent pacemaker Poor overall functional performance based on the above-mentioned supple comorbidities Plan: The patient was seen and evaluated Labs and medications reviewed Continue the current treatment plan Titrate down the FiO2 as tolerated Plan is to return to [facility] upon discharge We will continue to follow I have personally seen and examined the patient, performed the documentation and the assessment and plan as written. Number of minutes spent on the visit: 10.
[2024-02-04 22:25] VITALS: PULSE 60
[2024-02-05 08:34] VITALS: BP 148/75; RESP 17; TEMP 97.6
--- NOTE | 2024-02-05 09:04 | P.DS ---
Providers Date of admission: 01/31/24 19:28 Attending physician: Tima Longo Consults: 01/31/24 19:44 Consult Physician Routine Consulting Provider: Alfonzo Dolan Consult Reason/Comments: CHF exacerbation Do you want consulting provider notified?: Yes 02/03/24 07:39 Consult Physician Routine Consulting Provider: Juan Alberto Larose Reason/Comments: SOB asnd COPD Exacerbation Do you want consulting provider notified?: Yes Primary care physician: [facility] Course: HISTORY OF PRESENT ILLNESS: 88-year-old female well-known for 3 years was seen by our practice up to March 2022 where patient was hospitalized finally one of the long-term care facility close to [facility]. Patient apparently was sent from [facility] to [facility] emergency room because of worsening in excess patient not symptom of congestive heart failure without successful treatment at her local hospital. She was having quite dyspnea, shortness of breath, PND and orthopnea with mild palpitation no anginal symptoms, she has been retaining slight bit more fluid. Apparently beside her symptom has been having significant cough mostly dry with slight sputum production and worsening picture on the chest x-ray consistent with mostly congestive heart failure with? Of consolidation. CT of the chest was positive for congestive heart failure and large left diaphragmatic hernia containing stomach and large part of her bowel. Question of infiltrate in the bases. Patient was giving 1 g of Rocephin along with azithromycin Lasix 40 mg Solu-Medrol 125 mg was sent apparently to [facility] for management of her heart failure. Patient was to be kept on 2 L of O2 and her lab value showed leukocytosis at 22.3 BNP was 5460 procalcitonin was 2.7 02/01/2024: Patient level be done this morning along with chest x-ray, will continue Lasix 40 mg IV twice a day along with Aldactone 25 mg daily also. Amlodipine completely and initiate patient on Entresto smaller dose awaiting for the final echocardiogram. Also continue to treat patient bilateral pneumonia with antibiotics continue updraft treatment continue supportive care with oxygen if needed. Patient complains seems to be little bit better continue to watch patient's I's and O's. 02/02/2024: Continue treatment for combination of acute respiratory failure, mild to moderate preserved heart failure ejection fraction, large hiatal hernia, also community-acquired pneumonia on antibiotics. Patient seen cardiology agree with adjustment of the Lasix 40 mg IV twice a day along with Aldactone, Entresto and metoprolol. Continue to watch patient electrolyte and kidney function test at this time. Patient seems to do slightly better with medication, will continue O2 and continue supportive care as well. She is continue to have dyspnea out of the normal, ordered CT of the lung if negative will initiate dexamethasone this is still combination of pneumonia along with very large hiatal hernia in the left side occupying almost half of the lung causing worsening shortness of breath. I had a long discussion with the guardian who is Laureen the niece and she is in [place] currently with family explained to her was going on Mrs. Gilmore explained to her the testing and the possibility that Mrs. Gilmore might be back into her assisted living/[facility] in the next 48 hours. 02/03/2024: She is doing slightly better continue to have significant shortness of breath, her diastolic heart failure management is optimized at this point patient was started on some steroid for her shortness of breath and dyspnea no solution for her large hiatal hernia at this point. CTA left yesterday came back negative for pulmonary embolism. Will consult pulmonary also consult physical therapy for possible PT and rehab she will be going back to her long-term care hopefully tomorrow if she is stable. 02/04/2024: She is feeling slightly better still having slight dyspnea with minimal exertion, she was seen again by pulmonary and cardiology yesterday no major change in management agree with the current plan for now try to titrate down her oxygen to a lower level, also increase activity and having patient out of bed. We should contact the case management social worker and probably the plan is to get patient is ready to be discharged for more like tomorrow than today. Repeat another chest x-ray today and lab will be done to make sure the adjusted medication has not affected her kidney function. REVIEW OF SYSTEMS: CONSTITUTIONAL: Well-developed elderly with mild scoliosis and mild respiratory distress. EYES: No icterus sclerae, no conjunctivitis. EARS, NOSE, MOUTH, THROAT, and FACE: No sore throat, lymphadenopathy, carotid bruits or deformity. RESPIRATORY: Positive shortness of breath and cough with mild wheezes. CARDIOVASCULAR: Positive PND orthopnea palpitation no angina. GASTROINTESTINAL: No Abd pain, Nausea or vomiting, no Diarrhea or constipation, No GI Bleed, no distention or masses. GENITOURINARY: Negative for Hematuria or UTI, no kidney stones. Slight decrease in urine output. INTEGUMENT/BREAST: Generalized back muscle pain. HEMATOLOGIC/LYMPHATIC: Chronic anemia with no sign of bleeding. MUSCULOSKELTAL: Negative for Myalgia or arthralgia. NEURLOGICAL: Alert with slight confusion no blurred vision moving all her extremities. BEHAVIORAL/PSYCH: Negative. Worsening confusion and memory. ENDOCRINE: Negative. PHYSICAL EXAMINATION: General Appearance: Alert, cooperative, slight confusion mild cough with slight dyspnea. Neck HEENT: Supple, no lymphadenopathy, no thyroid enlargement, no carotid bruits. Lungs: Decreased breath sound bilaterally with fine rhonchi with crackles in the bases but has mild expiratory wheezes. Chest Wall: Decreased expansion with deep inspiration no tenderness and no deformity was found on exam, no costochondral pain or discomfort. Heart: Regular rate and rhythm, S1, S2 positive JVD with positive S3 with PVCs and systolic murmur. Back: Significant scoliosis with kyphosis with mild CVS tenderness. Abdomen: Soft, non-tender, bowel sounds active all four quadrants, no masses, no organomegaly. Extremities: Extremities normal, atraumatic, 1+ edema. Pulses: 2+ and symmetric. Skin: Skin color, texture, tugor normal, no rashes or lesions. Neurologic: Alert oriented with slight confusion. cranial nerves II through XII intact, positive generalized weakness with no abnormal balance and gait. ASSESSMENT AND PLAN: _Severe dyspnea and shortness of breath: Combination of congestive heart failure exacerbation along with bilateral pneumonia and mild fluid overload. Still have slight shortness of breath CTA came back negative for PE will consult pulmonary continue management for COPD and continue steroid along with updraft. _Congestive heart failure exacerbation: Echocardiogram was performed shows ejection fraction of 65 to 70% with left ventricular wall thickness normal left ventricular cavity size is normal. So this is well-preserved diastolic dysfunction congestive heart failure and with the adjustment of medication patient is able to tolerate with probably will do well his blood pressure is little bit low might reduce Entresto to half the dose. _Bilateral pneumonia: Continue IV antibiotic for another 24 hours we will switch her to oral by tomorrow. _ Worsening COPD: Continue updraft along with O2 and steroid nebulizer and prepare hopefully for prednisone orally by tomorrow as well. _History of heart block post pacemaker. Functioning well and doing well still seeing cardiology. _History of A-fib with good pulse rate controlled lately. Still on metoprolol tartrate 25 mg daily. Not on any anticoagulation. _Hypertension: With the change in medication that off amlodipine and continue metoprolol and Entresto blood pressure is better controlled. _Dementia: Mostly Alzheimer disease with small vessel disease will continue current management. _Large hiatal hernia with big part of her stomach and part of the duodenum herniated above the diaphragmatic, but she is not able to go on any advanced management still currently on proton pump have returned watch for portion. Not quite sure if this is a big part of the shortness of breath patient has unsure when she had a large meal specially late in the evening and lay down with a hiatal hernia with be part of the stomach above the diaphragm has big impact on affecting patient causing more shortness of breath. In general the large hiatal hernia might be responsible for some of the shortness of breath patient might be suffering from at this point. _Chronic neuropathy: Mostly peripheral has been on Lyrica 50 mg 3 times a day. _GI prophylaxis: Remain on pantoprazole. Prognosis: Fair. Discharge planning: She is seen pulmonary and cardiology has been doing slightly better continue to improve with current treatment we will keep her for another day of IV antibiotic and switch to oral by tomorrow and let her go back to her assisted living. Hospital course: The patient was transferred from [facility] for severe worsening dyspnea and shortness of breath with high suspicion for CHF exacerbation, her BNP was 5460 with procalcitonin 2.7 she had quite a leukocytosis of 22.3 initially was started on IV furosemide, chest x-ray showed but looks like left-sided pneumonia also patient has been seen cardiology previously been diagnosed with diastolic congestive heart failure. She was started on Entresto along with Aldactone and furosemide and seems to do well with it. Patient had extremely large hiatal hernia occupying the left side of her lung large part causing significant dyspnea and shortness of breath. With her wors ening cough and have been diagnosed with asthma/COPD exacerbation initiate updraft treatment along with steroid inhaler and dexamethasone seen pulmonary as well. The patient has improved to certain level continue to have slight dyspnea especially when she is laying down with the pressure of the hiatal hernia on her lung. Also patient has been seen wound care for stage II small area on her sacrum wound care was consulted will be seen patient and leave recommendation for this time she is to follow-up with wound care as an outpatient as well. She is stable to be discharged today 02/05/2024 her medication were changed according to 2 with seen will be more suitable for her diastolic heart failure along with mild dyspnea on reactive airway. Patient been discharged in stable condition. Time spent on discharging patient was over 35 minutes. Patient Condition at Discharge: Stable Plan - Discharge Summary Discharge Rx Participant: Yes New Discharge Prescriptions: New Bumetanide [BUMEX] 1 mg PO DAILY tab dexAMETHasone 2 mg PO DAILY #5 tab Sacubitril/Valsartan [Entresto 24 mg-26 mg Tablet] 1 each PO BID tab Spironolactone [Aldactone] 25 mg PO DAILY tab Amoxic-Pot Clav 500-125 mg [Augmentin 500-125 mg] 1 tab PO Q12HR #14 tab Acetaminophen-Codeine 300-30mg [Tylenol w/codeine #3] 1 each PO Q6HR PRN #20 tab PRN Reason: Pain Continue Acetaminophen [Tylenol] 650 mg PO Q4H PRN PRN Reason: Pain Liquacel 30 ml PO BID Acetaminophen Tab [Tylenol] 650 mg PO TID@0800,1300,2100 Albuterol Nebulized [Ventolin Nebulized] 2.5 mg INHALATION RT-Q4H PRN PRN Reason: Shortness Of Breath Or Wheezing bisacodyL [Dulcolax] 10 mg RECTAL Q72H PRN PRN Reason: Constipation Cyanocobalamin (Vitamin B-12) [Vitamin B-12] 1,000 mcg PO DAILY@0800 Metoprolol Tartrate [Lopressor] 25 mg PO DAILY@0800 Timolol 0.5% Ophth Soln (Pf) [Timoptic 0.5% Ocudose] 1 drop BOTH EYES BID@0500,2100 Budesonide [Pulmicort] 0.5 mg INHALATION RT-Q6H PRN PRN Reason: Shortness Of Breath Or Wheezing Ipratropium-Albuterol Nebulize [Duoneb 0.5 mg-3 mg/3 ml Soln] 3 ml INHALATION RT-Q6H PRN PRN Reason: Shortness Of Breath Or Wheezing Pregabalin [Lyrica] 50 mg PO TID@0800,1300,2100 #90 cap Magnesium Hydroxide [Milk of Magnesia Concentrate] 7,200 mg PO DAILY PRN PRN Reason: Constipation Ocular Vitamin Tablet 1 tab PO DAILY@0800 Latanoprost/Pf [Latanoprost 0.005% Eye Drop] 1 drop BOTH EYES HS Artificial Tears-Hypromellose [Artificial Tear Drops] 2 drops BOTH EYES Q4H PRN PRN Reason: dry/itchy eyes guaiFENesin [guaiFENesin Oral Solution] 200 mg PO Q4H PRN PRN Reason: Cough Omeprazole Magnesium [PriLOSEC OTC] 20 mg PO DAILY@0500 Potassium Chloride ER [K-Dur 20] 20 meq PO BID@0800,2100 Thiamine [Vitamin B-1] 100 mg PO DAILY@0800 Discontinued Furosemide [Lasix] 80 mg PO DAILY@0800 amLODIPine [Norvasc] 5 mg PO DAILY@0800 Furosemide [Lasix] 20 mg PO DAILY@1300 Discharge Medication List Acetaminophen [Tylenol] 650 mg PO Q4H PRN 11/10/21 [History] Latanoprost/Pf [Latanoprost 0.005% Eye Drop] 1 drop BOTH EYES HS 11/10/21 [History] Magnesium Hydroxide [Milk of Magnesia Concentrate] 7,200 mg PO DAILY PRN 11/10/21 [History] Ocular Vitamin Tablet 1 tab PO DAILY@0800 11/10/21 [History] Acetaminophen Tab [Tylenol] 650 mg PO TID@0800,1300,2100 01/31/24 [History] Albuterol Nebulized [Ventolin Nebulized] 2.5 mg INHALATION RT-Q4H PRN 01/31/24 [History] Artificial Tears-Hypromellose [Artificial Tear Drops] 2 drops BOTH EYES Q4H PRN 01/31/24 [History] Budesonide [Pulmicort] 0.5 mg INHALATION RT-Q6H PRN 01/31/24 [History] Cyanocobalamin (Vitamin B-12) [Vitamin B-12] 1,000 mcg PO DAILY@0800 01/31/24 [History] Ipratropium-Albuterol Nebulize [Duoneb 0.5 mg-3 mg/3 ml Soln] 3 ml INHALATION RT-Q6H PRN 01/31/24 [History] Liquacel 30 ml PO BID 01/31/24 [History] Metoprolol Tartrate [Lopressor] 25 mg PO DAILY@0800 01/31/24 [History] Omeprazole Magnesium [PriLOSEC OTC] 20 mg PO DAILY@0500 01/31/24 [History] Potassium Chloride ER [K-Dur 20] 20 meq PO BID@0800,2100 01/31/24 [History] Thiamine [Vitamin B-1] 100 mg PO DAILY@0800 01/31/24 [History] Timolol 0.5% Ophth Soln (Pf) [Timoptic 0.5% Ocudose] 1 drop BOTH EYES BID@0500,209901/31/24 [History] bisacodyL [Dulcolax] 10 mg RECTAL Q72H PRN 01/31/24 [History] guaiFENesin [guaiFENesin Oral Solution] 200 mg PO Q4H PRN 01/31/24 [History] Acetaminophen-Codeine 300-30mg [Tylenol w/codeine #3] 1 each PO Q6HR PRN #20 tab 02/05/24 [Rx] Amoxic-Pot Clav 500-125 mg [Augmentin 500-125 mg] 1 tab PO Q12HR #14 tab 02/05/24 [Rx] Bumetanide [BUMEX] 1 mg PO DAILY tab 02/05/24 [Rx] Pregabalin [Lyrica] 50 mg PO TID@0800,1300,2100 #90 cap 02/05/24 [Rx] Sacubitril/Valsartan [Entresto 24 mg-26 mg Tablet] 1 each PO BID tab 02/05/24 [Rx] Spironolactone [Aldactone] 25 mg PO DAILY tab 02/05/24 [Rx] dexAMETHasone 2 mg PO DAILY #5 tab 02/05/24 [Rx] Follow up Appointment(s)/Referral(s): Alfonzo Dolan MD [STAFF PHYSICIAN] - 1 Week Tima Longo MD [Primary Care Provider] - 1 Week Juan Alberto Larose DO [Doctor of Osteopathic Medicine] - 1 Week None,Stated [REFERRING] - 1-2 days Discharge Disposition: TRANSFER TO SNF/ECF
--- NOTE | 2024-02-05 10:11 | P.PN ---
Subjective Progress Note Date: 02/05/24 HISTORY OF PRESENTING ILLNESS 88-year-old female with past medical history of CHF, high-grade AV block with single-chamber PPM 2021, dementia, large hiatal hernia, chronic neuropathy. This time she was sent from [facility] because of worsening shortness of breath, increased fatigue and lower extremity edema. Patient has been having shortness of breath with minimal exertion, orthopnea and paroxysmal nocturnal dyspnea symptoms. She is also reporting mild palpitations. Labs showed WBC 22, hemoglobin 13, creatinine 0.7, BUN 25, BNP 14,000. This has been highest when compared to her prior levels. Troponin was negative at 0.029. LDL 129, TSH 0.5 CXR showed cardiomegaly with mild pulm congestion ECG shows ventricular paced rhythm BP 123/63, heart rate 61, February 02, 2024 Patient was evaluated at bedside this afternoon. At the time of evaluation it is noted that patient is having expiratory wheezing. She is having mild respiratory distress. Her volume status is better as compared to yesterday. BP 128/64, heart rate 60s, sinus rhythm with ventricularly paced rhythm. No reported arrhythmias on telemetry overnight CT chest shows emphysematous changes, no pulmonary embolism very small pleural effusion, compression atelectasis, large hiatal hernia. Not much pulmonary congestion. 02/02 Patient continues to have some shortness of breath but possibly improved. Symptoms seem to be more related to COPD versus heart failure at this point. Yesterday, IV Lasix was transitioned to Bumex oral 1 mg daily and plan to continue patient on Aldactone, Entresto and metoprolol XL. Patient continues to have some mild wheezing. Lower extremity edema has resolved. Blood pressure 124/57, heart rate 60, pulse ox 97% on 3 L nasal cannula. 02/03 Patient states that her breathing status is improved today from yesterday. Blood pressure 132/81, heart rate 60, afebrile, pulse ox 96% on 3 L nasal cannula. Repeat blood work reveals WBC 13, hemoglobin 13, platelet count 318. Electrolytes are normal. Creatinine 0.7 and BUN 33. Patient is anticipating discharge home tomorrow. 02/04 Patient still has cough with some sputum production. Blood pressure 148/75, heart rate 60, pulse ox 93% on 3 L. PHYSICAL EXAMINATION Vital signs reviewed. Head: Normocephalic. Eyes: Sclerae nonicteric. Neck: Brisk carotid upstroke, no jugular venous distention. Lungs: Clear to auscultation. Heart: Regular rate and rhythm, S1-S2, no S3, no murmur or rub. Abdomen: Soft nontender, positive bowel sounds. Extremities: No edema, intact distal pulses. Neuro: Alert, oritented, no focal deficits. Detailed neuro exam was not performed. 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 In past there has been no documented atrial fibrillation therefore she has not been on anticoagulation since. She has a single-chamber pacemaker PLAN Continue p.o. Bumex 1 mg daily, Aldactone 25 mg, Entresto 24 /26 mg twice daily, metoprolol XL 25 mg daily Monitor renal functions, electrolytes Patient is cleared for discharge from cardiology and may follow-up in the office in 1 to 2 weeks. Nurse practitioner note has been reviewed, I agree with documented findings and plan of care. Patient was seen and examined. Objective - Vital Signs Vital signs: Vital Signs Temp 97.6 F 02/05/24 07:52 Pulse 60 02/05/24 07:52 Resp 17 02/05/24 07:52 BP 148/75 02/05/24 07:52 Pulse Ox 98 02/05/24 07:52 FiO2 Intake & Output 02/04/24 02/05/24 02/05/24 18:59 06:59 18:59 Output Total 1600 400 Balance -1600 -400 Weight 70.5 kg Output: Urine 1600 400 Other: Voiding Method External Catheter - Labs CBC & Chem 7: 02/04/24 05:22 02/04/24 05:22 Labs: Abnormal Lab Results - Last 24 Hours (Table) 02/04/24 Range/Units 05:22 BUN 33.1 H (9.0-27.0) mg/dL BUN/Creatinine Ratio 47.29 H (12.00-20.00) Ratio Glucose 120 H (70-110) mg/dL Calcium 8.5 L (8.7-10.3) mg/dL Total Bilirubin <0.2 L (0.3-1.2) mg/dL AST 11 L (13-35) U/L Albumin 3.3 L (3.8-4.9) g/dL Albumin/Globulin Ratio 1.03 L (1.60-3.17) Ratio Microbiology - Last 24 Hours (Table) 01/31/24 21:15 Blood Culture - Preliminary Blood 01/31/24 21:30 Blood Culture - Preliminary Blood
--- NOTE | 2024-02-05 11:12 | XR ---
EXAMINATION TYPE: XR chest 1V portable DATE OF EXAM: 02/05/2024 7:08 AM CLINICAL INDICATION:Female, 88 years old with history of LLL pneumonia; H COMPARISON: Chest radiographs from TECHNIQUE: XR chest 1V portable Frontal view of the chest. FINDINGS: Lungs/Pleura: There is no evidence of pleural effusion, focal consolidation, or pneumothorax. Pulmonary vascularity: Unremarkable. Heart/mediastinum: Cardiomediastinal silhouette is unremarkable. Musculoskeletal: No acute osseous pathology. Other findings: Large diaphragmatic hernia the left with suspected atelectasis. IMPRESSION: Left-sided airspace opacities could represent atelectasis from large left diaphragmatic hernia presen t. Pneumonia felt to be less likely.
[2024-02-05] MEDS: HYDROPHILIC CREAM 180 GM TUBE TOPICAL SCH (11:32)
[2024-02-05 11:55] VITALS: BMI 30.3
--- NOTE | 2024-02-05 13:36 | P.PN ---
Subjective Progress Note Date: 02/05/24 This is a 88-year-old female patient who resides in an extended care facility and was transferred to [facility] originally for concerns with shortness of breath cough congestion. She was subsequently transferred here for further care back on 01/31/2024. X-ray shows left lower lobe infiltrate with minimal right pleural effusion. CT angiogram ruled out pulmonary embolism. There is pragmatic hernia with herniation of stomach into the left lower thoracic region. Small bilateral pleural effusions. Compressive atelectasis in the left lung base. White count 11.6. Hemoglobin 12.5. Platelets 286. Sodium 140. Potassium 5.3. Bicarb 32. BUN 35. Creatinine 0.7. Glucose 124. Procalcitonin 6.76. proBNP 14,000. She is seen today in consultation on the regular medical floor. She is awake and alert in no acute distress. Resting comfortably in bed. Maintaining O2 saturations in the 90s on 3 L/min per nasal cannula. She has normal saline at KVO. She is treated with ceftriaxone and a zithromycin. The patient is seen today February 04, 2024 in follow-up on the regular medical floor. She is currently resting comfortably in bed. Awake and alert in no acute distress. She is maintaining O2 saturations in the 90s on 3 L/min per nasal cannula. Her procalcitonin was 6.76. She is continued on ceftriaxone and azithromycin. She does have home oxygen. Blood cultures revealed no growth. White count 13.0. Hemoglobin 13.0. Sodium 139. Potassium 5.4. Bicarb 32. BUN 33. Creatinine 0.7. Glucose 120. She is continued on bronchodilators, Decadron. The patient is seen today February 05, 2024 in follow-up on the regular medical floor. She is currently resting comfortably in bed. Awake and alert in no acute distress. She is maintaining O2 saturations in the 90s on 3 L/min per na christine cannula. Chest x-ray continues to show some left-sided atelectasis and large left diaphragmatic hernia. Procalcitonin was 6.76. She remains on antibiotics in the form of ceftriaxone. Completed azithromycin, continued on DuoNeb inhalations and Pulmicort inhalations. Remains on oral diuretics. No new labs today. Objective - Vital Signs Vital signs: Vital Signs Temp 97.6 F 02/05/24 07:52 Pulse 60 02/05/24 07:52 Resp 17 02/05/24 07:52 BP 148/75 02/05/24 07:52 Pulse Ox 98 02/05/24 07:52 FiO2 Intake & Output 02/04/24 02/05/24 02/05/24 18:59 06:59 18:59 Output Total 1600 400 Balance -1600 -400 Weight 70.5 kg 70.5 kg Output: Urine 1600 400 Other: Voiding Method External Catheter External Catheter - Exam GENERAL EXAM: Alert, pleasant 88-year-old female, on 3 L nasal cannula, in no apparent distress. HEAD: Normocephalic. EYES: Normal reaction of pupils, equal size. NOSE: Clear with pink turbinates. THROAT: No erythema or exudates. NECK: No masses, no JVD. CHEST: No chest wall deformity. LUNGS: Equal air entry with bibasilar crackles. CVS: S1 and S2 normal with no audible murmur, regular rhythm. ABDOMEN: No hepatosplenomegaly, normal bowel sounds, no guarding or rigidity. SPINE: No scoliosis or deformity SKIN: No rashes CENTRAL NERVOUS SYSTEM: No focal deficits, tone is normal in all 4 extremities. EXTREMITIES: There is no peripheral edema. No clubbing, no cyanosis. Peripheral pulses are intact. - Labs CBC & Chem 7: 02/04/24 05:22 02/04/24 05:22 Assessment and Plan Assessment: Acute hypoxemic respiratory failure secondary to an acute exacerbation of diastolic congestive heart failure and COPD exacerbation with suspected healthcare acquired pneumonia. Procalcitonin 6.76. Treated with ceftriaxone and azithromycin. Continued on oral diuretics History of diastolic congestive heart failure History of chronic obstructive pulmonary disease Hypertension Hyperlipidemia Large hiatal hernia History of dementia residing in extended-care facility Chronic neuropathy History of permanent pacemaker Poor overall functional performance based on the above-mentioned supple comorbidities Plan: The patient was seen and evaluated Chest x-ray and medications reviewed Continue the current treatment plan Stable from the pulmonary standpoint Plan is to return to [facility] I have personally seen and examined the patient, performed the documentation and the assessment and plan as written. Number of minutes spent on the visit: 10.
--- NOTE | 2024-02-05 15:26 | P.CON ---
Consult Note - . Consult date: 02/05/24 Assessment/Plan:: Wound care consultation: Reason for consultation: Decubitus right buttocks. This is a pleasant 88-year-old woman with numerous severe medical comorbidities including a recent CHF exacerbation, bilateral pneumonia, A. fib, dementia, hy pertension, we have been asked to see her in regards to a decubitus on her right buttocks. On examination we have an area of about 10 cm which has some mild discoloration there is some breakdown of the epithelium in the center of it about 2 cm in diameter. Impression: stage II decubitus right buttocks. Recommendation: On short-term I would start with simply covering the area where the skin is not intact with triad cream I would cover the whole area with bordered foam to protect from friction and Traction damage. I would also recommend that she stay off of her backside as much as possible and alleviate the pressure is much as possible. A Roho cushion or other cushioning pads may be utilized. There is a good chance that this will simply resolve itself with care and time. If it is not we be happy to see her in the wound care center for further recommendations.
--- NOTE | 2024-02-13 16:56 | CDI ---
Documentation Clarification Form Date: 02/13/2024 From: Dorothy Davis Admit Date: 01/31/2024 07:28:00 PM Patient Name: Kesha Gilmore Visit Number: [id number] Discharge Date: 02/05/2024 03:04:00 PM ATTENTION: The Clinical Documentation Specialists (CDI) and [facility] Coding Staff appreciate your assistance in clarifying documentation. Please respond to the clarification below the line at the bottom and electronically sign. The CDI & [facility] Coding staff will review the response and follow-up if needed. Please note: Queries are made part of the Legal Health Record. If you have any questions, please contact the author of this message via ITS. Dr. Tima Longo Gram-negative pneumonia is documented in multiple IM PN, but is not noted in subsequent documentation. Clarification is requested. History/Risk Factors: 88yo transferred from [facility] for dyspnea and was admitted for severe dyspnea and shortness of breath d/t a combination of CHF exacerbation, B/L pneumonia and mild fluid overload. Clinical Indicators: IM PN on 02/01 noted, Bilateral pneumonia: This could be labeled as gram-negative pneumonia especially with patients current condition and the high risk for aspiration. Treatment: Zithromax IV, Rocephin IV, supplemental O2, SVN, Please clarify if the gram-negative pneumonia is: [xx ] still possible at the time of discharge as Aspiration Due to Very large Hiatal Hernia. [ ] gram-negative pneumonia ruled out, unspecified pneumonia treated [ ] gram-negative pneumonia ruled out, other pneumonia treated (please specify) [ ] Other condition, please specify [ ] Unable to determine (Template Last Revised: January 2021) MTDD
== END 2024-02-05 15:04 | DRG 177 ==
LOC: EC 16:53 → SUPCPDRO 16:53 → 4SSUR 19:28
PROVIDERS: ADMIT Internal Medicine Geriatric Medicine; ATTEND Internal Medicine Geriatric Medicine
DX: J69.0 Pneumonitis due to inhalation of food and vomit (principal); I50.33 Acute on chronic diastolic (congestive) heart failure; J96.01 Acute respiratory failure with hypoxia; J45.901 Unspecified asthma with (acute) exacerbation; J44.1 Chronic obstructive pulmonary disease with (acute) exacerbation; I11.0 Hypertensive heart disease with heart failure; G30.9 Alzheimer's disease, unspecified; F02.80 Dementia in other diseases classified elsewhere, unspecified severity, without behavioral disturbance, psychotic disturbance, mood disturbance, and anxiety; D64.9 Anemia, unspecified; L89.312 Pressure ulcer of right buttock, stage 2; I48.91 Unspecified atrial fibrillation; K44.9 Diaphragmatic hernia without obstruction or gangrene; K21.9 Gastro-esophageal reflux disease without esophagitis; M19.90 Unspecified osteoarthritis, unspecified site; Z66 Do not resuscitate; Y95 Nosocomial condition; E78.5 Hyperlipidemia, unspecified; R53.81 Other malaise; G89.29 Other chronic pain; G62.9 Polyneuropathy, unspecified; Z96.642 Presence of left artificial hip joint; Z79.899 Other long term (current) drug therapy; Z95.0 Presence of cardiac pacemaker
CPT/HCPCS: 71045; 71046; 71275; 80053; 80061; 83036; 83735; 83880; 84145; 84443; 84484; 84550; 85025; 85027; 87040; 93005; 93306; 94760; 96365; 99285